=== PATIENT | female | born 1940 | race Caucasian/White ===

== ENCOUNTER 2023-08-26 15:46 | Outpatient (OUT) | payer MEDICARE, SELFPAY ==
--- NOTE | 2023-08-26 16:12 | XR_ITS ---
The [address] [address] Patient Name: BANG BOYCE MRN: [id number] date: 1940 Sex: F Assigned Patient Location: [facility] Current Patient Location: [facility] Accession/Order Number: [id number] Exam Date: 08/26/2023 16:05 Report Date: 08/26/2023 16:29 At the request of: ABEL MISHRA Procedure: XR cervical spine 5V EXAM: XR cervical spine 5V HISTORY: Cervical Spine Pain M54.2 COMPARISON: None. TECHNIQUE: 5 view(s) of the cervical spine. FINDINGS: The bones are well mineralized. The spine is in good alignment. Advanced multilevel degenerative changes are present. There is bony fusion across the vertebral bodies of C3-C4 and C5-C6. The oblique views are limited, however, moderate to severe neural foraminal stenosis is present at the right C4-C5 and C6-C7 levels due to uncovertebral hypertrophy. No acute fracture. XR/XR cervical spine 5V IMPRESSION: 1. No acute abnormality of the cervical spine. 2. Advanced multilevel degenerative changes are present. Electronically authenticated by: AJIT VASQUEZ Date: 08/26/2023 16:29
== END 2023-08-26 15:47 | disposition home or self-care (01) ==
LOC: RAD 15:52
PROVIDERS: PCP Family Medicine; Visit Provider Family Medicine
DX: M54.2 Cervicalgia (principal); G89.4 Chronic pain syndrome
CPT/HCPCS: 72050

== ENCOUNTER 2023-09-29 09:32 | Outpatient (OUT) | payer MEDICARE, SELFPAY ==
--- NOTE | 2023-09-29 09:35 | MR_ITS ---
The [address] [address] Patient Name: BANG BOYCE MRN: [id number] date: 1940 Sex: F Assigned Patient Location: MRI Current Patient Location: MRI Accession/Order Number: [id number] Exam Date: 09/29/2023 09:52 Report Date: 09/29/2023 11:06 At the request of: ABEL MISHRA Procedure: MR cervical spine wo con MR cervical spine wo con, 09/29/2023 9:52 AM EST INDICATION: Cervical Spine PAin M48.02, Stenosis Of Cervical Spine M48.0 COMPARISON: Prior x-ray dated 08/26/2023 TECHNIQUE: Multiplanar, multisequential MRI images of cervical spine were obtained with without contrast. FINDINGS: There is loss of normal physiologic cervical lordosis. The vertebral heights are relatively preserved. Partial fusion of C3-C4 and C4-C5 is noted. The cervicomedullary junction is unremarkable. No definite signal abnormality within the spinal cord is noted. 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 Moderate bilateral neuroforaminal narrowing and no canal stenosis at the level of C2-C3 is noted. At the level of C3-C4, there is mild left no neuroforaminal narrowing and no canal stenosis. At the level of C4-C5, there is severe bilateral neuroforaminal narrowing and moderate canal stenosis. At the level of C5-C6, there is moderate bilateral neuroforaminal narrowing and moderate canal stenosis. At the level of C6-C7, there is severe bilateral neuroforaminal narrowing and moderate canal stenosis. Level of C7-T1 is unremarkable. No definite muscular or ligamentous injury is noted. 1.9 cm thyroid nodule in the left lobe is noted. MR/MR cervical spine wo con IMPRESSION: Moderate degenerative changes of the cervical spine in particular at C4-C5 and C6-C7. Thyroid nodules up to 1.9 cm. Ultrasound is recommended for further evaluation. Electronically authenticated by: KITTY GUERRERO Date: 09/29/2023 11:06
== END 2023-09-29 09:33 | disposition home or self-care (01) ==
LOC: MRI 09:32
PROVIDERS: PCP Family Medicine; Visit Provider Family Medicine
DX: M54.2 Cervicalgia (principal); M48.02 Spinal stenosis, cervical region; M43.22 Fusion of spine, cervical region; R29.898 Other symptoms and signs involving the musculoskeletal system; M50.30 Other cervical disc degeneration, unspecified cervical region; E04.1 Nontoxic single thyroid nodule
CPT/HCPCS: 72141

== ENCOUNTER 2024-10-02 15:20 | Outpatient (OUT) | payer MEDICARE, SELFPAY ==
--- NOTE | 2024-10-02 15:28 | US_ITS ---
The [address] [address] Patient Name: BANG BOYCE MRN: [id number] date: 1940 Sex: F Assigned Patient Location: US Current Patient Location: [place] Accession/Order Number: [id number] Exam Date: 10/02/2024 15:30 Report Date: 10/02/2024 16:37 At the request of: ABEL MISHRA Procedure: US venous doppler LE RT EXAMINATION: US venous doppler LE RT HISTORY: right leg pain M79.604 COMPARISON: No relevant comparison available. FINDINGS: REGION: Right lower extremity THROMBI: None. COMPRESSIBILITY: Normal compressibility. FLOW: Normal waveform and antegrade flow between 5 and 20 cm/s. OTHER: Anechoic fluid collection posterior medial to the knee, 6.2 x 3.5 x 2.1 cm. Distal lower extremity subcutaneous edema. US/US venous doppler LE RT IMPRESSION: 1. No deep vein thrombus within the right lower extremity. 2. Subcutaneous edema. 3. Jimenez's cyst. Electronically authenticated by: JOVITA BARCENAS Date: 10/02/2024 16:37
--- OUTSIDE RECORDS SUMMARY | 2024-10-02 15:43 | XMS_ITS | CCD ---
Author Organization [facility] Care Team Providers Care Harpooner Name Role Phone Star Mishra Unavailable DANICA ., DR ROMAN Attending Unavailable DANICA ., DR ROMAN Consulting Unavailable DANICA ., DR ROMAN Primary Care Unavailable DANICA ., DR ROMAN Admitting Unavailable Star Mishra MD Unavailable [phone] Star Mishra MD Primary Care Provider LISY OMALLEY Attending Unavailable LISY OMALLEY Attending Unavailable STAR MISHRA Attending Unavailable DEVEN GONZALEZ Attending Unavailable APLINGBYRON Attending Unavailable APLING BYRON B Referring Unavailable STAR MISHRA Attending Unavailable APLINGBYRON Referring Unavailable SHOLA LARSEN Attending Unavailable STAR MISHRA Attending Unavailable DEVEN GONZALEZ Attending Unavailable STAR MISHRA Referring Unavailable SHAYLA BRAUN Attending Unavailable STAR MISHRA Attending Unavailable SHAYLA BRAUN Attending Unavailable SHAYLA BRAUN Attending Unavailable DEVEN GONZALEZ Attending Unavailable STAR MISHRA Attending Unavailable SHAYLA BRAUN Attending Unavailable SHAYLA BRAUN Attending Unavailable SHAYLA BRAUN Attending Unavailable SHAYLA BRAUN Attending Unavailable SHAYLA BRAUN Attending Unavailable STAR MISHRA Attending Unavailable STAR MISHRA Attending Unavailable DEVEN GONZALEZ Attending Unavailable STAR MISHRA Attending Unavailable Allergies Allergy Classification Reported Allergen(s) Allergy Type Date of Onset Reaction(s) Facility (2 sources) Baclofen Drug Allergy 12-23-2023 Other [facility] Medications Current Medications Medication Drug Class(es) Dates Sig (Normalized) Sig (Original) acetaminophen 325 mg oral tablet (18 sources) Start: 11-28-2019 take 2 tablets by mouth every four hours as needed acetaminophen 325 MG tablet Take 2 tablets by mouth every 4 hours as needed for Mild Pain. 50 tablet 1 11/28/2019 Active Start: 11-28-2019 End: 12-01-2019 take 1 tablet by mouth every six hours acetaminophen (TYLENOL) tablet 1,000 mg Start: 10-04-2018 End: 12-01-2019 take 1 tablet by mouth every four hours as needed acetaminophen 650 MG Tab CR Take 1 tablet by mouth every 4 hours as needed for Pain. 50 tablet 0 10/04/2018 12/01/2019 Discontinued (Stop Taking at Discharge) Acetaminophen (T YLENOL ARTHRITIS PAIN PO) Take 650 mg by mouth as needed. Active acetaminophen 500 mg / diphenhydrAMINE hydrochloride 25 mg oral tablet (7 sources) Histamine-1 Receptor Antagonist take 25-500 mg by mouth once as needed diphenhydrAMINE-acetaminophen (Tylenol PM) 25-500 MG per tablet Take 1 tablet by mouth as needed at bedtime for sleep. 0 Active amoxicillin 500 mg oral capsule (7 sources) Penicillin-class Antibacterial Star t: 10-09 End: 10-09 amoxicillin 500 MG Cap capsu le Take 4 capsules 1 hour before procedure 8 capsule 1 10/27/2018 10/27/2019 Active aspirin 81 mg delayed release oral tablet (20 sources) Platelet Aggregation Inhibitor, Nonsteroidal Anti-inflammatory Drug Star t: 11-09 End: 11-09 aspirin EC [address] Take 1 table twice a day for 30days. This medication is for blood clot prevention. 60 tablet 0 11/28/2019 Active Start: 10-04-2018 End: 11-03-2018 take 1 tablet by mouth twice daily at mealtime aspirin EC [address] Take 1 tablet by mouth 2 times daily with meals. This medication is being prescribed to prevent blood clots. 60 tablet 0 10/04/2018 Active take 1 tablet by mouth once sangeetha y aspirin EC [address] Take 81 mg by mouth daily. 0 Active baclofen 20 mg oral tablet (5 sources) gamma-Aminobutyric Acid-ergic Agonist Start: 12-17-2023 End: 01-16-2024 take 1 tablet by mouth at bedtime baclofen (Lioresal) 20 MG tablet Indications: Neuroforaminal stenosis of cervical spine , Cervical dystonia Take 1 tablet (20 mg) by mouth at bedtime 30 tablet 11 12/17/2023 12/23/2023 Discontinued (Therapy completed) Calcium Citrate (11 sources) take 600 mg by mouth every twelve hours CALCIUM CITRATE PO Take 600 mg by mouth every 12 hours. 0 Active celecoxib 200 mg oral capsule (14 sources) Nonsteroidal Anti-inflammatory Drug Start: 10-04-2018 End: 01-09-2020 take 1 capsule by mouth twice daily celecoxib 200 MG Cap capsule Take 1 capsule by mouth 2 times daily. 84 capsule 0 11/28/2019 Active cholecalciferol 0.125 mg oral tablet (20 sources) Vitamin D take 1 tablet by mouth in the morning cholecalciferol (Vitamin D-3) 125 MCG (5000 UT) tablet Take 5,000 Units by mouth in the morning. 0 Active take 5 tablets by mouth once morteza ly Vitamin D3 1000 units Tab tablet Take 5,000 Units by mouth daily. 0 Active take 2 tablets by mouth once morteza ly Vitamin D3 1000 units Tab tablet Take 2,000 Units by mouth daily. 0 Active coenzyme q10 100 mg oral capsule (16 sources) take 10 capsules by mouth once, then take 1 capsule by mouth Coenzyme Q10 (COQ10) 100 MG Cap Take 100 mg by mouth. 0 Active take 1 capsule by mo uth once, then take 1 capsule by mouth Coenzyme Q10 (COQ10) 100 MG Cap Take 100 mg by mouth. Active dexamethasone 2 mg oral tablet (8 sources) Corticosteroid Start: 12-03-2023 End: 12-23-2023 take 1 tablet by mouth in the morning dexAMETHasone (Decadron) 2 MG tablet Indications: Cervical dystonia Take 1 tablet (2 mg) by mouth in the morning and 1 tablet (2 mg) in the evening. Take with meals. Do all this for 7 days. 14 tablet 1 12/03/2023 12/23/2023 Discontinued (Therapy completed) Start: 11-29-2019 End: 11-29-2019 take 10 mg intravenous route every twenty-four hours dexamethasone (DECADRON) injection 10 mg docusate sodium 100 mg oral capsule (16 sources) Start: 10-04-2018 End: 12-01-2019 take 1 capsule by mouth twice daily docusate 100 MG Cap capsule Take 1 capsule by mouth 2 times daily. 60 capsule 0 11/28/2019 Active gabapentin 300 mg oral capsule (19 sources) Anti-epileptic Agent Start: 08-03-2023 End: 01-30-2024 take 1 capsule by mouth in the morning, then take 1 capsule by mouth in the evening, then take 1 capsule by mouth at bedtime gabapentin (Neurontin) 300 MG capsule Indications: Chronic pain syndrome Take 1 capsule (300 mg) by mouth in the morning and 1 capsule (300 mg) in the evening and 1 capsule (300 mg) before bedtime. 270 capsule 1 08/03/2023 01/30/2024 Active Start: 07-08-2019 End: 12-01-2019 take 1 capsule by mouth three times daily gabapentin 100 MG Cap capsule Take 100 mg by mouth 3 times daily. 0 07/08/2019 Active magnesium oxide 400 mg oral tablet (16 sources) take 1 tablet by teo th once daily magnesium oxide 400 (241.3 Mg) MG Tab tablet Take 250 mg by mouth daily. 0 Active Multiple Vitamins-Minerals (CENTRUM SILVER PO) (16 sources) Multiple Vitamin s-Minerals (CENTRUM SILVER PO) Take by mouth. 0 Active Multiple Vitamin s-Minerals (CENTRUM SILVER PO) Take by mouth. Active multivitamin (Theragran) tablet (7 sources) take 1 tablet by mouth in the morning multivitamin (Theragran) tablet Take 1 tablet by mouth in the morning. 0 Active Naproxen (1 source) Nonsteroidal Anti-inflammatory Drug Naproxen Sodium (ALEVE PO) Take by mouth. Active omeprazole 20 mg delayed release oral capsule (7 sources) Proton Pump Inhibitor Start: 11-28-19 20 take 1 capsule by mouth once daily omeprazole [address] capsule Take 1 capsule by mouth daily. 30 capsule 0 11/28/2019 Active oxyCODONE hydrochloride 5 mg oral tablet (3 sources) Opioid Agonist Start: 10-04-20 18 oxyCODONE 5 MG Tab tablet Indications: Status post right knee replacement 5-10 mg every 4-6 hours as needed for moderate-severe pain 60 tablet 0 10/04/2018 Active rosuvastatin calcium 5 mg oral tablet (7 sources) HMG-CoA Reductase Inhibitor Start: 08-03-20 End: 01-30-20 24 take 1 tablet by mouth at bedtime rosuvastatin (Crestor) 5 MG tablet Indications: Mixed dyslipidemia (CMS/HCC) Take 1 tablet (5 mg) by mouth at bedtime. 90 tablet 1 08/03/2023 01/30/2024 Active spironolactone 25 mg oral tablet (5 sources) Aldosterone Antagonist Start: 01-04-20 take 1 tablet by mouth twice daily spironolactone 25 MG tablet Take 1 tablet by mouth 2 times daily. 0 01/04/2020 Active traMADol hydrochloride 50 mg oral tablet (5 sources) Opioid Agonist Start: 11-28-19 20 End: 12-05-19 20 take 1-2 tablets by mouth every six hours as needed for pain traMADol 50 MG Tab tablet Indications: Acute postoperative pain of left hip 1-2 tabs po q 6 hr PRN pain 40 tablet 0 11/28/2019 Active Turmeric extract (8 sources) take 1 capsule by mouth once daily TURMERIC PO Take 1 capsule by mouth daily. 0 Active ubidecarenone 100 mg / vitamin e 5 unt oral capsule (7 sources) coenzyme Q-10 10 0 MG capsule Completed/Discontinued Medications Medication Drug Class(es) Dates Sig (Normalized) Sig (Original) bisacodyl 10 mg rectal suppository (1 source) Stimulant Laxative Start: 0 End: 0 bisacodyl (DULCOLAX) suppository 10 mg ceFAZolin 2000 mg injection (1 source) Cephalosporin Antibacterial Start: 0 End: 0 take 2 g intravenous route every eight hours ceFAZolin (ANCEF) 2 g in dextrose 100 mL premix IVPB docusate sodium 50 mg / sennosides, fci 8.6 mg oral tablet (1 source) Start: 0 End: 0 senna-docusate (SENOKOT-S) 8.6-50 MG per tablet 2 tablet 1 ml HYDROmorphone hydrochloride 1 mg/ml cartridge (1 source) Opioid Agonist Start: 0 End: 0 take 0.5 mg intravenous route every four hours as needed HYDROmorphone (DILAUDID) injection 0.5 mg 1 ml ketorolac tromethamine 30 mg/ml cartridge (1 source) Nonsteroidal Anti-inflammatory Drug, Cyclooxygenase Inhibitor Start: 0 End: 0 take 7.5 mg intravenous route every six hours ketorolac (TORADOL) injection 7.5 mg losartan potassium 50 mg oral tablet (9 sources) Angiotensin 2 Receptor Yen Start: 0 End: 0 take 50 mg by mouth once daily 50 mg, Oral, DAILY, First dose on Wed11/28/19 at 1700, Until Discontinued meloxicam 15 mg oral tablet (7 sources) Nonsteroidal Anti-inflammatory Drug Start: 9 End: 0 take 1 tablet by mouth once daily at mealtime meloxicam 15 MG Tab tablet Take 1 tablet by mouth daily. Take with food. 30 tablet 0 11/17/2018 12/01/2019 Discontinued (Stop Taking at Discharge) nabumetone 750 mg oral tablet (3 sources) Nonsteroidal Anti-inflammatory Drug Start: 3 End: 4 take 1 tablet by mouth in the morning nabumetone (Relafen) 750 MG tablet Indications: Chronic pain syndrome Take 1 tablet (750 mg) by mouth in the morning and 1 tablet (750 mg) before bedtime. 180 tablet 0 10/25/2023 12/17/2023 Discontinued (Therapy completed) 2 ml ondansetron 2 mg/ml injection (1 source) Serotonin-3 Receptor Antagonist Start: 0 End: 0 take 4 mg intravenous route every four hours as needed ondansetron 4mg/2ml (ZOFRAN) injection 4 mg pantoprazole 40 mg delayed release oral tablet (1 source) Proton Pump Inhibitor Start: 0 End: 0 take 40 mg by mouth once daily 40 mg, Oral, DAILY, First dose on Wed11/28/19 at 1730, Until Discontinued Swallow whole; do not crush or chew. Indications: Inpt Stress Ulcer Prophylaxis microencapsulated potassium chloride 20 meq extended release oral tablet (1 source) Start: 0 End: 0 40 mEq, Oral, DAILY NEEDED, Starting Wed11/28/19 at 1650, Until Wed12/01/19 at 1724, k less 3.5 ropivacaine (NAROPIN) 1 % 400 mg, EPINEPHrine PF (ADRENALIN) 1 MG/ML 1 mg, ketorolac (TORADOL) 30 MG/ML 30 mg, cloNIDine 100 MCG/ML 177 mcg, sodium chloride 0.9% 45 mL 88.77 mL (total volume) (1 source) Start: 0 End: 0 ropivacaine (NAROPIN) 1 % 400 mg, EPINEPHrine PF (ADRENALIN) 1 MG/ML 1 mg, ketorolac (TORADOL) 30 MG/ML 30 mg, cloNIDine 100 MCG/ML 177 mcg, sodium chloride 0.9% 45 mL 88.77 mL (total volume) 1000 ml sodium chloride 9 mg/ml injection (2 sources) Start: 0 End: 0 sodium chloride 0.9% IV solution sodium phosphate, dibasic 35.5 mg/ml / sodium phosphate, monobasic 96.4 mg/ml enema (1 source) Start: 0 End: 0 sodium phosphate w/sodium biphosphate (FLEETS) enema 1 enema tiZANidine 4 mg oral tablet (3 sources) Central alpha-2 Adrenergic Agonist Start: 4 End: 4 take 1 tablet by mouth every six hours for muscle spasms tiZANidine (Zanaflex) 4 MG tablet Indications: Cervical dystonia Take 1 tablet (4 mg) by mouth every 6 (six) hours if needed for muscle spasms for up to 10 days 30 tablet 3 12/03/2023 12/17/2023 Discontinued (Therapy completed) tranexamic acid 650 mg oral tablet (1 source) Antifibrinolytic Agent Start: 0 End: 0 tranexamic acid (LYSTEDA) tablet 1,950 mg zolpidem tartrate 5 mg oral tablet (1 source) gamma-Aminobutyric Acid-ergic Agonist Start: 0 End: 0 zolpidem (AMBIEN) tablet 5 mg Problems Active Problems Problem Classification Problem Date Documented Date Episodic/Chronic Disorders of lipid metabolism (11 sources) Mixed hyperlipidemia; Translations: [Mixed hyperlipidemia] Onset: 01-20-2023 Chronic E Codes: Adverse effects of medical drugs (2 sources) Adverse reaction to drug; Translations: [Adverse effect of unspecified drugs, medicaments and biological substances, initial encounter] 12-23-2023 Episodic Esophageal disorders (20 sources) Gastroesophageal reflux disease; Translations: [Gastro-esophageal reflux disease without esophagitis] Onset: 10-04-2018 10-04-2018 Chronic Essential hypertension (16 sources) Benign hypertension; Translations: [Essential hypertension] Onset: 11-28-2019 11-30-2019 Chronic Malaise and fatigue (7 sources) Chronic fatigue syndrome; Translations: [Chronic fatigue syndrome] Onset: 07-16-2023 07-16-2023 Chronic Nutritional deficiencies (7 sources) Vitamin D deficiency; Translations: [Vitamin D deficiency, unspecified] Onset: 07-16-2023 07-16-2023 Chronic Osteoarthritis (7 sources) Osteoarthritis of left hip joint; Translations: [Unilateral primary osteoarthritis, left hip] Onset: 11-28-2019 08-03-2023 Chronic Osteoarthritis (9 sources) Osteoarthritis of left hip joint; Translations: [Primary osteoarthritis of left hip] Onset: 11-28-2019 11-28-2019 Other bone disease and musculoskeletal deformities (7 sources) Idiopathic scoliosis of lumbar spine; Translations: [Other idiopathic scoliosis, lumbar region] Onset: 07-16-2023 07-16-2023 Chronic Other connective tissue disease (2 sources) History of total knee arthroplasty; Translations: [History of total knee arthroplasty, right] Chronic Other connective tissue disease (3 sources) History of total hip arthroplasty; Translations: [Hx of total hip arthroplasty, left] Chronic Other connective tissue disease (7 sources) Hip joint prosthesis present; Translations: [Presence of left artificial hip joint] Onset: 07-16-2023 07-16-2023 Chronic Other connective tissue disease (14 sources) Artificial knee joint present; Translations: [Presence of left artificial knee joint] Onset: 07-16-2023 07-16-2023 Chronic Other hereditary and degenerative nervous system conditions (10 sources) Isolated cervical dystonia; Translations: [Spasmodic torticollis] Onset: 12-03-2023 12-03-2023 Chronic Other nervous system disorders (9 sources) Chronic pain syndrome; Translations: [Chronic pain syndrome] Onset: 07-16-2023 07-16-2023 Chronic Other nervous system disorders (4 sources) Disorder of nerve root and/or plexus; Translations: [Nerve root and plexus disorder, unspecified] Onset: 12-21-2023 12-21-2023 Chronic Other non-traumatic joint disorders (3 sources) Hip pain; Translations: [Left hip pain] Episodic Other nutritional; endocrine; and metabolic disorders (9 sources) Obesity caused by energy imbalance; Translations: [Other obesity due to excess calories] Onset: 07-16-2023 07-16-2023 Chronic Other nutritional; endocrine; and metabolic disorders (11 sources) Obese class I; Translations: [Obesity (BMI 30.0-34.9)] Onset: 10-04-2018 10-05-2018 Other screening for suspected conditions (not mental disorders or infectious disease) (2 sources) Blood chemistry abnormal; Translations: [Encounter for screening for diabetes mellitus] Onset: 01-27-2023 Episodic Peripheral and visceral atherosclerosis (7 sources) Peripheral vascular disease, unspecified; Translations: [Peripheral vascular disease, unspecified] Onset: 07-16-2023 07-16-2023 Chronic Spondylosis; intervertebral disc disorders; other back problems (20 sources) Degeneration of lumbosacral intervertebral disc; Translations: [Osteoarthritis of lumbar spinal facet joint] Onset: 07-16-2023 07-16-2023 Chronic Spondylosis; intervertebral disc disorders; other back problems (20 sources) Lumbar facet joint pain; Translations: [Disorder of cervical spine] Onset: 07-16-2023 Resolved: 07-26-2023 10-19-2023 Episodic Unclassified (2 sources) Patient encounter status; Translations: [Preop testing] Unclassified (1 source) History of revision of right total knee arthroplasty; Translations: [History of revision of total replacement of right knee joint] Past or Other Problems Problem Classification Problem Date Documented Da te Episodic/Chronic Acquired foot deformities (7 sources) Talipes planus; Translations: [Flat foot [pes planus] (acquired), unspecified foot] Onset: 07-16-2023 07-16-2023 Episodic Mood disorders (7 sources) Mood disorders Onset: 09-13-2023 09-13-2023 Other acquired deformities (7 sources) Acquired unequal leg length; Translations: [Unequal limb length (acquired), unspecified site] Onset: 07-16-2023 07-16-2023 Episodic Other bone disease and musculoskeletal deformities (7 sources) Osteopenia; Translations: [Other specified disorders of bone density and structure, unspecified site] Onset: 07-16-2023 07-16-2023 Episodic Other diseases of veins and lymphatics (7 sources) Venous insufficiency of leg; Translations: [Venous insufficiency (chronic) (peripheral)] Onset: 07-16-2023 07-16-2023 Episodic Other non-traumatic joint disorders (16 sources) Knee pain; Translations: [Acute pain of right knee] Onset: 10-04-2018 10-04-2018 Episodic Other nutritional; endocrine; and metabolic disorders (11 sources) Obesity, unspecified; Translations: [Obese class I] Onset: 10-04-2018 Resolved: 12-22-2023 10-05-2018 Chronic Other skin disorders (7 sources) Actinic keratosis; Translations: [Actinic keratosis] Onset: 07-16-2023 07-16-2023 Episodic Residual codes; unclassified (15 sources) History of operative procedure on knee; Translations: [Knee joint replacement status] Onset: 10-04-2018 10-04-2018 Episodic Unclassified (1 source) Osteoarthritis of right knee, unspecified osteoarthritis type Unclassified (1 source) Hemarthrosis of right knee Varicose veins of lower extremity (7 sources) Varicose veins of lower limb co-occurrent with edema; Translations: [Varicose veins of bilateral lower extremities with other complications] Onset: 07-16-2023 07-16-2023 Episodic Results Test Name Value Interpretation Reference Range Facility MR SHOULDER LEFT WO IV CONTR Diana 01-04-2024 MR SHOULDER LEFT WO IV CONTRAST EXAMINATION: MR SHOULDER LEFT WO IV CONTRAST HISTORY: LT shoulder internal derangement history of prior rotator cuff surgery. TECHNIQUE: Routine non-contrast MRI of the shoulder, left side COMPARISON: Radiograph 01/03/2024. RESULT: Some limitations from artifact secondary to prior surgery. Rotator Cuff Tendons: Postsurgical changes from prior rotator cuff repair. Increased signal and attenuated appearance of the mid to distal fibers of supraspinatus and infraspinatus which may be postsurgical or secondary to tendinosis, with some areas of possible partial thickness articular sided tearing, without distinct full-thickness tear. Mild to moderate tendinosis of subscapularis, without distinct tear. Teres minor appears intact. Long Head Biceps Tendon: Complete rupture/tear proximally near origin versus changes from prior tenotomy, with distal retraction of the torn fibers to near the region of the humeral head neck junction. Increased fluid in the tendon sheath may relate to tenosynovitis or joint continuity. Muscle: Muscle bulk and signal intensity are within normal limits. Labrum: Diffuse fraying/tearing. Bones and Marrow: No evidence of fracture or bone marrow replacing process. Glenohumeral Joint: Small to moderate areas of full-thickness chondral loss especially of the superior humeral head and inferior glenoid. Small joint effusion. Acromioclavicular Joint: Degenerative changes and probable prior postsurgical changes. Other: Mild subacromial-subdeltoid bursal thickening/fluid. IMPRESSION: Changes from prior rotator cuff repair without evidence for recurrent full-thickness tear, with possible areas of partial-thickness tearing of distal supraspinatus and infraspinatus. Complete rupture/tear of the proximal long head biceps tendon with distal retraction, versus changes from prior tenotomy. ELECTRONICALLY SIGNED BY: Bennie Serna MD Normal Not Available US THYROIDon 10-08-2023 US THYROID FINDINGS: Right lobe thyroid measures 5.7 x 1.8 x 2.5 cm. Left lobe thyroid measures 5.5 x 1.8 x 2.8 cm. Isthmus measures 8 mm. In the left lobe, upper pole, a 1.9 x 1.4 x 1.8 cm nearly completely solid, isoechoic, wider than tall, smoothly marginated, noncalcified nodule is identified (TR 3). In the right isthmus, a 1.2 x 0.9 x 0.7 cm mixed cystic and solid, isoechoic, wider than tall, smoothly marginated, noncalcified nodule is identified (TR 2). IMPRESSION: Impression: 1.9 x 1.4 x 1.8 cm left lobe upper pole mildly suspicious narrowing nodule follow-up sonography in 1 year recommended. 1.2 x 0.9 x 0.7 cm right isthmus nonsuspicious appearing nodule. No further work-up required. ELECTRONICALLY SIGNED BY: Gerald Garces MD Normal Not Available LIPID PROFILEon 01-20-2023 CHOL-HDL RATIO NORM SEE BELOW Normal [facility] Comment on above: Result Comment: 3.3 - 4.4 LOW RISK 4.4 - 7.1 AVERAGE RISK 7.1 - 11.0 MODERATE RISK >11.0 HIGH RISK Performed By: #### C MP, LIPID #### [facility] [address] [place] [address] Dr. Mary Lorenzana Cholesterol [Mass/Vol] 134 mg/dL Normal <=200 [facility] Comment on above: Performed By: #### C MP, LIPID #### [facility] [address] [address] [address] Mary Lorenzana Cholesterol in HDL [Mass/Vol] 46 mg/dL Normal 40-60 [facility] Comment on above: Performed By: #### C MP, LIPID #### [facility] [address] [address] [address] Mary Lorenzana Cholesterol in LDL [Mass/Vol] 63.0 mg/dL Normal [facility] Comment on above: Performed By: #### C MP, LIPID #### [facility] [address] [address] [address] Mary Lorenzana Cholesterol.total/C holesterol in HDL [Mass ratio] 2.9 {ratio} Normal [facility] Comment on above: Performed By: #### C MP, LIPID #### [facility] [address] [address] [address] Mary Lorenzana HDL NORMAL > or = 60 mg/dl - LO W CARDIOVASCULAR RISK <40 mg/dl - HIGH CARDIOVASCULAR RISK Normal [facility] Comment on above: Performed By: #### C MP, LIPID #### [facility] [address] [address] [address] Mary Lorenzana LDL CALC NORMAL SEE BELOW Normal [facility] Comment on above: Result Comment: <100 mg/dl OPTIMAL 100 - 129 mg/dl NEAR OR ABOVE OPTIMAL 130 - 159 mg/dl BORDERLINE HIGH 160 - 189 mg/dl HIGH >190 mg/dl VERY HIGH Performed By: #### C MP, LIPID #### [facility] [address] [place] [address] Dr. Mary Lorenzana Triglyceride [Mass/Vol] 125 mg/dL Normal <=150 [facility] Comment on above: Performed By: #### C MP, LIPID #### [facility] [address] [place] [address] Dr. Mary Lorenzana VLDL CALC 25.0 mg/dL Normal [facility] Comment on above: Performed By: #### C MP, LIPID #### [facility] [address] [address] [address] Mary Lorenzana PROF 14(COMP METB)on 023 Albumin [Mass/Vol] 3.2 g/dL Critically low 3.4-5.0 [facility] Comment on above: Performed By: #### C MP, LIPID #### [facility] [address] [place] [address] Dr. Mary Lorenzana Albumin/Globulin [Mass ratio] 1.0 {ratio} Normal [facility] Comment on above: Performed By: #### C MP, LIPID #### [facility] [address] [place] [address] Dr. Mary Lorenzana ALP [Catalytic activity/Vol] 74 U/L Normal 46-116 [facility] Comment on above: Performed By: #### C MP, LIPID #### [facility] [facility] [address] [place] [address] Dr. Mary Lorenzana ALT [Catalytic activity/Vol] 22 U/L Normal 14-59 [facility] Comment on above: Performed By: #### C MP, LIPID #### [facility] [address] [place] [address] Dr. Mary Lorenzana Anion gap [Moles/Vol] 11.8 mmol/L Normal [facility] Comment on above: Performed By: #### C MP, LIPID #### [facility] [address] [place] [address] Dr. Mary Lorenzana AST [Catalytic activity/Vol] 23 U/L Normal 15-37 [facility] Comment on above: Performed By: #### C MP, LIPID #### [facility] [address] [place] [address] Dr. Mary Lorenzana Bilirubin [Mass/Vol] 0.3 mg/dL Normal 0.2-1.0 [facility] Comment on above: Performed By: #### C MP, LIPID #### [facility] [address] [place] [address] Dr. Mary Lorenzana Calcium [Mass/Vol] 9.2 mg/dL Normal 8.5-10.1 [facility] Comment on above: Performed By: #### C MP, LIPID #### [facility] [address] [place] [address] Dr. Mary Lorenzana Chloride [Moles/Vol] 109 mmol/L Critically high 98-107 [facility] Comment on above: Performed By: #### C MP, LIPID #### [facility] [address] [place] [address] Dr. Mary Lorenzana CO2 [Moles/Vol] 26.6 mmol/L Normal 21.0-32.0 [facility] Comment on above: Performed By: #### C MP, LIPID #### [facility] [address] [place] [address] Dr. Mary Lorenzana Creatinine [Mass/Vol] 0.78 mg/dL Normal 0.55-1.02 [facility] Comment on above: Performed By: #### C MP, LIPID #### [facility] [address] [place] [address] Dr. Mary Lorenzana EGFR-AF SWAZI >60 Normal >=60 [facility] Comment on above: Performed By: #### C MP, LIPID #### [facility] [address] [place] [address] Dr. Mary Lorenzana EGFR-NON AF SWAZI >60 Normal >=60 [facility] Comment on above: Performed By: #### C MP, LIPID #### [facility] [address] [place] [address] Dr. Mary Lorenzana Globulin (S) [Mass/Vol] 3.3 g/dL Normal [facility] Comment on above: Performed By: #### C MP, LIPID #### [facility] [address] [place] [address] Dr. Mary Lorenzana Glucose [Mass/Vol] 89 mg/dL Normal 74-106 [facility] Comment on above: Performed By: #### C MP, LIPID #### [facility] [address] [place] [address] Dr. Mary Lorenzana Potassium [Moles/Vol] 4.4 mmol/L Normal 3.5-5.1 [facility] Comment on above: Performed By: #### C MP, LIPID #### [facility] [address] [place] [address] Dr. Mary Lorenzana Protein [Mass/Vol] 6.5 g/dL Normal 6.4-8.2 [facility] Comment on above: Performed By: #### C MP, LIPID #### [facility] [address] [place], [place] [address] Dr. Mary Lorenzana Sodium [Moles/Vol] 143 mmol/L Normal 136-145 [facility] Comment on above: Performed By: #### C MP, LIPID #### [facility] [address] [place], [place] [address] Dr. Mary Lorenzana Urea nitrogen [Mass/Vol] 17.0 mg/dL Normal 7.0-18.0 [facility] Comment on above: Performed By: #### C MP, LIPID #### [facility] [address] [place] [address] [address] Mary Lorenzana Urea nitrogen/Creatinine [Mass ratio] 21.8 mg/mg Normal [facility] Comment on above: Performed By: #### C MP, LIPID #### [facility] [address] [place], [place] [address] Dr. Mary Lorenzana Complete Blood Counton 01-27 Erythrocyte distribution width (RBC) [Ratio] 13.2 % Normal 11.0-15.0 [facility] [employer] Comment on above: Performed By: #### L IPD, CMP, CBC #### [facility] [address] [place], [place] [id number] Hematocrit (Bld) [Volume fraction] 47.2 % High 35.0-47.0 [facility] [employer] Comment on above: Performed By: #### L IPD, CMP, CBC #### [facility] [address], [place] [id number] Hemoglobin (Bld) [Mass/Vol] 14.9 g/dL Normal 11.6-15.5 [facility] [employer] Comment on above: Performed By: #### L IPD, CMP, CBC #### [facility] [address] [place], [place] [id number] MCH (RBC) [Entitic mass] 29.0 pg Normal 27.0-33.0 [facility] [employer] Comment on above: Performed By: #### L IPD, CMP, CBC #### [facility] [address] [place], [place] [id number] MCHC (RBC) [Mass/Vol] 31.6 g/dL Low 32.0-36.0 [facility] [employer] Comment on above: Performed By: #### L IPD, CMP, CBC #### [facility] [address] [place], [place] [id number] MCV (RBC) [Entitic vol] 92 fL Normal 80-100 [facility] Specialist Comment on above: Performed By: #### L IPD, CMP, CBC #### [facility] [address] [place], [place] [id number] Platelet mean volume (Bld) [Entitic vol] 10.00 fL Normal 7.50-12.50 [facility] [employer] Comment on above: Performed By: #### L IPD, CMP, CBC #### [facility] [address] [place], [place] [id number] Platelets (Bld) [#/Vol] 344 10*3/uL Normal 140-400 [facility] [employer] Comment on above: Performed By: #### L IPD, CMP, CBC #### [facility] [address] [place], [place] [id number] RBC (Bld) [#/Vol] 5.14 10*6/uL Normal 3.90-5.20 [facility] [employer] Comment on above: Performed By: #### L IPD, CMP, CBC #### [facility] [address] [place], [place] [id number] RDW-SD 45.2 fL Normal 37.0-50.0 [facility] [employer] Comment on above: Performed By: #### L IPD, CMP, CBC #### [facility] [address] [place], [place] [id number] WBC (Bld) [#/Vol] 5.8 10*3/uL Normal 3.8-11.0 [facility] [employer] Comment on above: Performed By: #### L IPD, CMP, CBC #### [facility] [address] [place], [place] [id number] Comprehensive Metabolic Pane ricki 01-27-2022 Albumin [Mass/Vol] 4.4 g/dL Normal 3.6-5.1 [facility] [place] [employer] Comment on above: Performed By: #### L IPD, CMP, CBC #### [facility] [address] [place], [place] [id number] Albumin/Globulin [Mass ratio] 1.9 {ratio} Normal 1.0-2.5 [facility] [employer] Comment on above: Performed By: #### L IPD, CMP, CBC #### [facility] [address] [place], [place] [id number] ALP [Catalytic activity/Vol] 74 U/L Normal 35-119 [facility] [employer] Comment on above: Performed By: #### L IPD, CMP, CBC #### [facility] [address] [place], [place] [id number] ALT [Catalytic activity/Vol] 17 U/L Normal 6-33 [facility] [employer] Comment on above: Result Comment: 10/08 Female reference range changed. Performed By: #### L IPD, CMP, CBC #### [facility] [address] [place], [place] [id number] Anion gap [Moles/Vol] 16 mmol/L Normal 12-20 [facility] [employer] Comment on above: Result Comment: Effe ctive 11/13/2019 reference range changed. Performed By: #### L IPD, CMP, CBC #### [facility] [address] [place], [place] [id number] AST [Catalytic activity/Vol] 18 U/L Normal 9-34 [facility] [employer] Comment on above: Performed By: #### L IPD, CMP, CBC #### [facility] [address] [place], [place] [id number] Bilirubin [Mass/Vol] 0.37 mg/dL Normal 0.30-1.20 [facility] [employer] Comment on above: Performed By: #### L IPD, CMP, CBC #### [facility] [address] [place], [place] [id number] BUN/CREA 24 Ratio High 6-22 [facility] [employer] Comment on above: Performed By: #### L IPD, CMP, CBC #### [facility] [address] [place], [place] [id number] Calcium [Mass/Vol] 9.7 mg/dL Normal 8.6-10.2 [facility] [place] [employer] Comment on above: Performed By: #### L IPD, CMP, CBC #### [facility] [address] [place], [place] [id number] Chloride [Moles/Vol] 105 mmol/L Normal 98-107 [facility] Specialist Comment on above: Performed By: #### L IPD, CMP, CBC #### [facility] [address] [place], [place] [id number] CO2 [Moles/Vol] 27 mmol/L Normal 20-31 [facility] [employer] Comment on above: Performed By: #### L IPD, CMP, CBC #### [facility] [address] [place], [place] [id number] Creatinine [Mass/Vol] 0.8 mg/dL Normal 0.6-1.4 [facility] [employer] Comment on above: Performed By: #### L IPD, CMP, CBC #### [facility] [address] [place], [place] [id number] eGFRAA 84 mL/min/1.73m2 Normal >60 [facility] [employer] Comment on above: Performed By: #### L IPD, CMP, CBC #### [facility] [address] [place], [place] [id number] eGFRNAA 69 mL/min/1.73m2 Normal >60 [facility] [employer] Comment on above: Performed By: #### L IPD, CMP, CBC #### [facility] [address] [place], [place] [id number] Globulin (S) [Mass/Vol] 2.3 g/dL Normal 1.9-3.7 [facility] [employer] Comment on above: Performed By: #### L IPD, CMP, CBC #### [facility] [address] [place], [place] [id number] Glucose [Mass/Vol] 84 mg/dL Normal 65-99 [facility] [employer] Comment on above: Result Comment: For FASTING Glucose --- ADA reference ranges: Normal 65-99 mg/dl Prediabetes 100-125 Diabetes >/= 126 Performed By: #### L IPD, CMP, CBC #### [facility] [address], [place] [id number] Potassium [Moles/Vol] 4.5 mmol/L Normal 3.5-5.5 [facility] [employer] Comment on above: Performed By: #### L IPD, CMP, CBC #### [facility] [address], [place] [id number] Protein [Mass/Vol] 6.7 g/dL Normal 6.1-8.1 [facility] [place] [employer] Comment on above: Performed By: #### L IPD, CMP, CBC #### [facility] [address] [place], [place] [id number] Sodium [Moles/Vol] 143 mmol/L Normal 135-146 [facility] [employer] Comment on above: Performed By: #### L IPD, CMP, CBC #### [facility] [address] [place], [place] [id number] Urea nitrogen [Mass/Vol] 19 mg/dL Normal 7-25 [facility] [employer] Comment on above: Performed By: #### L IPD, CMP, CBC #### [facility] [address] [place], [place] [id number] Lipid Panelon 01-27-2022 Cholesterol [Mass/Vol] 231 mg/dL High 125-200 [facility] [employer] Comment on above: Result Comment: Low risk < 200mg/dL Borderline risk 201-239 mg/dl High risk > or equal to 240 Performed By: #### L IPD, CMP, CBC #### [facility] [address] [place], [place] [id number] Cholesterol in HDL [Mass/Vol] 47 mg/dL Normal >40 [facility] [employer] Comment on above: Result Comment: High Cardiovascular Risk HDL <40 mg/dL Low Cardiovascular Risk HDL > or equal to 60 mg/dl Performed By: #### L IPD, CMP, CBC #### [facility] [address] [place], [place] [id number] Cholesterol in LDL [Mass/Vol] 150 mg/dL Normal [facility] [employer] Comment on above: Result Comment: LDL ATP III CLASSIFICATION LDL less than 100 mg/dl Optimal LDL 100-129 mg/dl Near or above optimal LDL 130-159 Borderline high LDL 160-189 High LDL greater than 189 mg/dl Very High Performed By: #### L IPD, CMP, CBC #### [facility] [address] [place], [place] [id number] Cholesterol in VLDL [Mass/Vol] 34 mg/dL Normal [facility] [employer] Comment on above: Performed By: #### L IPD, CMP, CBC #### [facility] [address] [place], [place] [id number] Cholesterol.total/C holesterol in HDL [Mass ratio] 5 {ratio} Normal [facility] Specialist Comment on above: Performed By: #### L IPD, CMP, CBC #### [facility] [address], [place] [id number] Triglyceride [Mass/Vol] 171 mg/dL High 30-150 [facility] [employer] Comment on above: Result Comment: TRIG ATPIII CLASSIFICATIONS TRIG less than 150 mg/dl Normal TRIG 150-199 mg/dl Borderline High TRIG 200-500 mg/dl High TRIG greather than 500 mg/dl Very High Performed By: #### L IPD, CMP, CBC #### [facility] [address], [place] [id number] XR finger LT 5th digiton XR finger LT 5th digit [facility] [place] [address] XRay Report Signed Patient: Radha Chaney MR#: [id number] 13 : 1940 Acct:[id number] Age/Sex: 80 / F ADM Date: 02/04/21 Loc: [facility] Room: Type: [facility] Attending Dr: Lona MILLS Ordering Provider: LONA ENGEL Date of Service: 02/04/21 XR/XR finger LT 5th digit: Injury of left little finger, initial encounter Copies to: LONA ENGEL XR finger LT 5th digit 02/04/2021 11:14 AM SIGNS AND SYMPTOMS: Injury to left fifth digit with redness and swelling of the tip of the fifth digit PROTOCOL: Frontal, lateral, and oblique radiographs of the left hand and left fifth digit COMPARISON: None FINDINGS: There is a transversely fracture traversing the distal tuft of the fifth distal phalanx. There is narrowing of the distal interphalangeal joints, greatest in the fifth digit. Soft tissue swelling is noted over the distal aspect of fifth digit. There is no dislocation or subluxation. Degenerative changes are noted at the base of the thumb and at the first metacarpophalangeal junction. XR/XR finger LT 5th digit IMPRESSION: There is a transversely fracture traversing the distal tuft of the fifth distal phalanx. Soft tissue swelling is noted over the distal aspect of fifth digit. Scattered degenerative changes are noted throughout, as above. Impression dictated by: Dann Ochoa M.D.02/04/2021 11:30 AM Dictation Location: [place] [address] Transcribed By: LINDA 02/04/21 1130 Dictated By: Dann Ochoa II, MD 02/04/21 1128 Signed By: 02/04/21 1130 [facility] XR SPINE LUMBOSACRAL 5 VIEWS on 04-18-2020 XR SPINE LUMBOSACRAL 5 VIEWS EXAM: L-spine HISTORY: Back pain. Comparison studies: None TECHNIQUE: 5 weightbearing views of the lumbar spine were obtained, including lateral flexion and extension views. FINDINGS: There is no evidence of acute fracture or subluxation. The frontal view shows a levorotoscoliosis centered around the L2 level. The lateral view shows some straightening of the normal curvature. Range of motion is moderately limited, and at least some of the range of motion on this exam is through the hips and not the itself. No suspicious bone lesions are seen. Severe degenerative changes are seen. The rest of the visualized structures are unremarkable. IMPRESSION: No acute findings. Abnormal curvatures on both the frontal and lateral views with moderately limited range of motion and severe multilevel degenerative changes. If clinical concern remains, consider further imaging with MRI. Normal [facility] IMPRESSION: No acute findings. Abnormal curvatures on both the frontal and lateral views with moderately limited range of motion and severe multilevel degenerative changes. If clinical concern remains, consider further imaging with MRI. [facility] EXAM: L-spine HISTOR Y: Back pain. Comparison studies: None TECHNIQUE: 5 weightbearing views of the lumbar spine were obtained, including lateral flexion and extension views. FINDINGS: There is no evidence of acute fracture or subluxation. The frontal view shows a levorotoscoliosis centered around the L2 level. The lateral view shows some straightening of the normal curvature. Range of motion is moderately limited, and at least some of the range of motion on this exam is through the hips and not the itself. No suspicious bone lesions are seen. Severe degenerative changes are seen. The rest of the visualized structures are unremarkable. [facility] User, Interfaces - 04/18/2020 3:43 PM EDT EXAM: L-spine HISTORY: Back pain. Comparison studies: None TECHNIQUE: 5 weightbearing views of the lumbar spine were obtained, including lateral flexion and extension views. FINDINGS: There is no evidence of acute fracture or subluxation. The frontal view shows a levorotoscoliosis centered around the L2 level. The lateral view shows some straightening of the normal curvature. Range of motion is moderately limited, and at least some of the range of motion on this exam is through the hips and not the itself. No suspicious bone lesions are seen. Severe degenerative changes are seen. The rest of the visualized structures are unremarkable. IMPRESSION IMPRESSION: No acute findings. Abnormal curvatures on both the frontal and lateral views with moderately limited range of motion and severe multilevel degenerative changes. If clinical concern remains, consider further imaging with MRI. [facility] CBCon 12-01-2019 DTYPE MANUAL DIFF Normal [facility] Comment on above: Performed By: #### A CBC, PT, CMPF #### Testing performed at [address] [address] Eosinophils/100 WBC (Bld) 5 % Normal 0.0-11.0 [facility] Comment on above: Performed By: #### A CBC, PT, CMPF #### Testing performed at [address] [address] Lymphocytes/100 WBC (Bld) 24 % Normal 20.0-55.0 [facility] Comment on above: Performed By: #### A CBC, PT, CMPF #### Testing performed at [address] [address] Monocytes/100 WBC (Bld) 2 % Normal 0.0-10.0 [facility] Comment on above: Performed By: #### A CBC, PT, CMPF #### Testing performed at [address] [address] Neutrophils/100 WBC (Bld) 69 % Normal 37.0-75.0 [facility] Comment on above: Performed By: #### A CBC, PT, CMPF #### Testing performed at [address] [address] PLATELET COMMENT ADEQUATE Normal [facility] Comment on above: Performed By: #### A CBC, PT, CMPF #### Testing performed at [address] [address] RBC morphology finding Nom (Bld) NORMAL Normal [facility] Comment on above: Performed By: #### A CBC, PT, CMPF #### Testing performed at [address] [address] Erythrocyte distribution width (RBC) [Ratio] 15.0 % High 11.5-14.5 [facility] Comment on above: Performed By: #### A CBC, PT, CMPF #### Testing performed at [address] [address] Hematocrit (Bld) [Volume fraction] 36.5 % Normal 36.0-48.0 [facility] Comment on above: Performed By: #### A CBC, PT, CMPF #### Testing performed at [address] [address] Hemoglobin (Bld) [Mass/Vol] 12.3 g/dL Normal 12.0-16.0 [facility] Comment on above: Performed By: #### A CBC, PT, CMPF #### Testing performed at [address] [address] MCH (RBC) [Entitic mass] 28.0 pg Normal 26.0-35.0 [facility] Comment on above: Performed By: #### A CBC, PT, CMPF #### Testing performed at [address] [address] MCHC (RBC) [Mass/Vol] 33.6 g/dL Normal 27.0-37.0 [facility] Comment on above: Performed By: #### A CBC, PT, CMPF #### Testing performed at [address] [address] MCV (RBC) [Entitic vol] 83.3 fL Normal 80.0-100.0 [facility] Comment on above: Performed By: #### A CBC, PT, CMPF #### Testing performed at [address] [address] Platelet mean volume (Bld) [Entitic vol] 7.9 fL Normal 7.4-11.0 [facility] Comment on above: Performed By: #### A CBC, PT, CMPF #### Testing performed at [address] [address] Platelets (Bld) [#/Vol] 266 10*3/uL Normal 130.0-400.0 [facility] Comment on above: Performed By: #### A CBC, PT, CMPF #### Testing performed at [address] [address] RBC (Bld) [#/Vol] 4.38 10*6/uL Normal 4.0-5.4 [facility] Comment on above: Performed By: #### A CBC, PT, CMPF #### Testing performed at [address] [address] WBC (Bld) [#/Vol] 6.6 10*3/uL Normal 3.6-11.0 [facility] Comment on above: Performed By: #### A CBC, PT, CMPF #### Testing performed at [address] [address] CBC, EDIF, PLATELETon 2019 Differential cell count method Nom (Bld) MANUAL DIFF % [facility] Eosinophils/100 WBC (Bld) 5 % 0 - 11 % [facility] Erythrocyte distribution width (RBC) [Ratio] 15.0 % High 11.5 - 14.5 % [facility] Hematocrit (Bld) [Volume fraction] 36.5 % 36 - 48 % [facility] Hemoglobin (Bld) [Mass/Vol] 12.3 g/dL [facility] Lymphocytes/100 WBC (Bld) 24 % 20 - 55 % [facility] MCH (RBC) [Entitic mass] 28.0 pg 26 - [address] [facility] MCHC (RBC) [Mass/Vol] 33.6 g/dL [facility] MCV (RBC) [Entitic vol] 83.[address] [facility] Monocytes/100 WBC (Bld) 2 % 0 - 10 % [facility] Neutrophils/100 WBC (Bld) 69 % 37 - 75 % [facility] Platelet mean volume (Bld) [Entitic vol] 7.[address] [facility] Platelet morphology finding Nom (Bld) ADEQUATE [facility] Platelets (Bld) [#/Vol] 266 10*3/uL 130 - 400 10*3/uL [facility] RBC (Bld) [#/Vol] 4.38 10*6/uL 4 - 5.4 10*6/uL [facility] RBC morphology finding Nom (Bld) NORMAL [facility] WBC (Bld) [#/Vol] 6.6 10*3/uL 3.6 - 11 10*3/uL [facility] Otheron 12-01-2019 Interpretation and review of laboratory results Abnormal [employer] RENAL FUNCTION PANELon 12-01 Albumin [Mass/Vol] 2.5 G/dl Low 3.5 - 5 G/dl [facility] Calcium [Mass/Vol] 8.4 mg/dL [facility] Chloride [Moles/Vol] 108 mmol/L High [employer] CO2 [Moles/Vol] 24 mmol/L [facility] Creatinine [Mass/Vol] 0.74 mg/dL [facility] GFR/1.73 sq M predicted among blacks MDRD (S/P/Bld) [Vol rate/Area] mL/min/{1.73_m2} ml/min/1.73sq .m [facility] GFR/1.73 sq M predicted among non-blacks MDRD (S/P/Bld) [Vol rate/Area] mL/min/{1.73_m2} ml/min/1.73sq .m [facility] [employer] GFR/1.73 sq M predicted among non-blacks MDRD (S/P/Bld) [Vol rate/Area] Average GFR for 70+ years old = 75. [employer] Comment on above: Chronic Kidney disea se, GFR = <60. Kidney failure, GFR = <15. The GFR estimate is not adjusted for extreme body surface area or acute process, nor has it been validated for women or ethnic groups other than and . Glucose post fast [Mass/Vol] 105 mg/dL High [employer] Comment on above: NORMAL <100 mg/dL PREDIABETES 101-126 mg/dL DIABETES 126 mg/dL or higher Phosphate [Mass/Vol] 2.5 mg/dL [employer] Potassium [Moles/Vol] 4.3 mmol/L [facility] Sodium [Moles/Vol] 140 mmol/L [facility] Urea nitrogen [Mass/Vol] 16 mg/dL [facility] RENAL PANEL,FASTINGon 2019 Albumin [Mass/Vol] 2.5 G/dl Low 3.5-5.0 [facility] Comment on above: Performed By: #### A CBC, PT, CMPF #### Testing performed at [address] [address] Creatinine [Mass/Vol] 0.74 mg/dL Normal 0.52-1.04 [facility] Comment on above: Performed By: #### A CBC, PT, CMPF #### Testing performed at [address] [address] EST. GFR, >60 Normal [facility] Comment on above: Performed By: #### A CBC, PT, CMPF #### Testing performed at [place] [id number] EST. GFR,Non >60 Normal [facility] Comment on above: Performed By: #### A CBC, PT, CMPF #### Testing performed at [address] [address] GFR/1.73 sq M predicted among non-blacks MDRD (S/P/Bld) [Vol rate/Area] Average GFR for 70+ years old = 75. Normal [facility] Comment on above: Result Comment: Speech And Language Specialist karlee Kidney disease, GFR = <60. Kidney failure, GFR = <15. The GFR estimate is not adjusted for extreme body surface area or acute process, nor has it been validated for women or ethnic groups other than and . Performed By: #### A CBC, PT, CMPF #### Testing performed at [address] [address] PHOSPHOROUS 2.5 MG/DL Normal 2.5-4.5 [facility] Comment on above: Performed By: #### A CBC, PT, CMPF #### Testing performed at [address] [address] Urea nitrogen [Mass/Vol] 16 mg/dL Normal 7-20 [facility] Comment on above: Performed By: #### A CBC, PT, CMPF #### Testing performed at [address] [address] Calcium [Mass/Vol] 8.4 mg/dL Normal 8.4-10.2 [facility] Comment on above: Performed By: #### A CBC, PT, CMPF #### Testing performed at [address] [address] Chloride [Moles/Vol] 108 mmol/L High 98-107 [facility] Comment on above: Performed By: #### A CBC, PT, CMPF #### Testing performed at [address] [address] CO2 [Moles/Vol] 24 mmol/L Normal 22-30 [facility] Comment on above: Performed By: #### A CBC, PT, CMPF #### Testing performed at [address] [address] Glucose [Mass/Vol] 105 mg/dL High 70-100 [facility] Comment on above: Result Comment: NORMAL <100 mg/dL PREDIABETES 101-126 mg/dL DIABETES 126 mg/dL or higher Performed By: #### A CBC, PT, CMPF #### Testing performed at [address] [address] Potassium [Moles/Vol] 4.3 mmol/L Normal 3.5-5.1 [facility] Comment on above: Performed By: #### A CBC, PT, CMPF #### Testing performed at [address] [address] Sodium [Moles/Vol] 140 mmol/L Normal 136-145 [facility] Comment on above: Performed By: #### A CBC, PT, CMPF #### Testing performed at [address] [address] CBCon 11-30-2019 ABSOLUTE BAS 0.1 10*3/uL Normal 0.0-0.2 [facility] Comment on above: Performed By: #### A CBC, PT, CMPF #### Testing performed at [address] [address] ABSOLUTE EOS 0.00 10*3/uL Normal 0.0-0.7 [facility] Comment on above: Performed By: #### A CBC, PT, CMPF #### Testing performed at [address] [address] ABSOLUTE NEUTROPHIL COUNT 6.5 10*3/uL Normal 1.4-6.5 [facility] Comment on above: Performed By: #### A CBC, PT, CMPF #### Testing performed at [address] [address] Basophils/100 WBC (Bld) 1.0 % Normal 0.0-2.0 [facility] Comment on above: Performed By: #### A CBC, PT, CMPF #### Testing performed at [address] [address] DTYPE AUTO DIFF Normal [facility] Comment on above: Performed By: #### A CBC, PT, CMPF #### Testing performed at [address] [address] Eosinophils/100 WBC (Bld) 0.4 % Normal 0.0-11.0 [facility] Comment on above: Performed By: #### A CBC, PT, CMPF #### Testing performed at [address] [address] Lymphocytes (Bld) [#/Vol] 1.20 10*3/uL Normal 1.2-3.4 [facility] Comment on above: Performed By: #### A CBC, PT, CMPF #### Testing performed at [address] [address] Lymphocytes/100 WBC (Bld) 13.4 % Low 20.0-55.0 [facility] Comment on above: Performed By: #### A CBC, PT, CMPF #### Testing performed at [address] [address] Monocytes (Bld) [#/Vol] 1.0 10*3/uL High 0.0-0.7 [facility] Comment on above: Performed By: #### A CBC, PT, CMPF #### Testing performed at [address] [address] Monocytes/100 WBC (Bld) 11.5 % High 0.0-10.0 [facility] Comment on above: Performed By: #### A CBC, PT, CMPF #### Testing performed at [address] [address] Neutrophils/100 WBC (Bld) 73.7 % Normal 37.0-75.0 [facility] Comment on above: Performed By: #### A CBC, PT, CMPF #### Testing performed at [address] [address] Erythrocyte distribution width (RBC) [Ratio] 15.0 % High 11.5-14.5 [facility] Comment on above: Performed By: #### A CBC, PT, CMPF #### Testing performed at [address] [address] Hematocrit (Bld) [Volume fraction] 37.6 % Normal 36.0-48.0 [facility] Comment on above: Performed By: #### A CBC, PT, CMPF #### Testing performed at [address] [address] Hemoglobin (Bld) [Mass/Vol] 12.5 g/dL Normal 12.0-16.0 [facility] Comment on above: Performed By: #### A CBC, PT, CMPF #### Testing performed at [address] [address] MCH (RBC) [Entitic mass] 27.8 pg Normal 26.0-35.0 [facility] Comment on above: Performed By: #### A CBC, PT, CMPF #### Testing performed at [address] [address] MCHC (RBC) [Mass/Vol] 33.2 g/dL Normal 27.0-37.0 [facility] Comment on above: Performed By: #### A CBC, PT, CMPF #### Testing performed at [address] [address] MCV (RBC) [Entitic vol] 83.7 fL Normal 80.0-100.0 [facility] Comment on above: Performed By: #### A CBC, PT, CMPF #### Testing performed at [address] [address] Platelet mean volume (Bld) [Entitic vol] 8.1 fL Normal 7.4-11.0 [facility] Comment on above: Performed By: #### A CBC, PT, CMPF #### Testing performed at [address] [address] Platelets (Bld) [#/Vol] 268 10*3/uL Normal 130.0-400.0 [facility] Comment on above: Performed By: #### A CBC, PT, CMPF #### Testing performed at [address] [address] RBC (Bld) [#/Vol] 4.49 10*6/uL Normal 4.0-5.4 [facility] Comment on above: Performed By: #### A CBC, PT, CMPF #### Testing performed at [address] [address] WBC (Bld) [#/Vol] 8.8 10*3/uL Normal 3.6-11.0 [facility] Comment on above: Performed By: #### A CBC, PT, CMPF #### Testing performed at [address] [address] CBC, EDIF, PLATELETon 2019 ABSOLUTE BASOPHIL COUNT 0.1 10*3/uL 0 - 0.2 10*3/uL [facility] [employer] Basophils/100 WBC (Bld) 1.0 % 0 - 2 % [facility] [employer] Differential cell count method Nom (Bld) AUTO DIFF % [facility] [employer] Eosinophils (Bld) [#/Vol] 0.00 10*3/uL 0 - 0.7 10*3/uL [facility] [employer] Eosinophils/100 WBC (Bld) 0.4 % 0 - 11 % [facility] [employer] Erythrocyte distribution width (RBC) [Ratio] 15.0 % High 11.5 - 14.5 % [facility] [employer] Hematocrit (Bld) [Volume fraction] 37.6 % 36 - 48 % [facility] [employer] Hemoglobin (Bld) [Mass/Vol] 12.5 g/dL [facility] [employer] Lymphocytes (Bld) [#/Vol] 1.20 10*3/uL 1.2 - 3.4 10*3/uL [facility] [employer] Lymphocytes/100 WBC (Bld) 13.4 % Low 20 - 55 % [facility] [employer] MCH (RBC) [Entitic mass] 27.8 pg 26 - 35 [facility] [employer] MCHC (RBC) [Mass/Vol] 33.2 g/dL [facility] [employer] MCV (RBC) [Entitic vol] 83.7 fL [facility] [employer] Monocytes (Bld) [#/Vol] 1.0 10*3/uL High 0 - 0.7 10*3/uL [facility] [employer] Monocytes/100 WBC (Bld) 11.5 % High 0 - 10 % [facility] [employer] Neutrophils (Bld) [#/Vol] 6.5 10*3/uL 1.4 - 6.5 10*3/uL [facility] Neutrophils/100 WBC (Bld) 73.7 % 37 - 75 % [facility] [employer] Platelet mean volume (Bld) [Entitic vol] 8.1 fL [facility] [employer] Platelets (Bld) [#/Vol] 268 10*3/uL 130 - 400 10*3/uL [facility] RBC (Bld) [#/Vol] 4.49 10*6/uL 4 - 5.4 10*6/uL [facility] WBC (Bld) [#/Vol] 8.8 10*3/uL 3.6 - 11 10*3/uL [facility] Other[facility]-2019 Interpretation and review of laboratory results Abnormal [facility] RENAL FUNCTION PANELon 11-30 Albumin [Mass/Vol] 2.9 G/dl Low 3.5 - 5 G/dl [facility] Calcium [Mass/Vol] 8.7 mg/dL [facility] Chloride [Moles/Vol] 111 mmol/L High [employer] CO2 [Moles/Vol] 23 mmol/L [facility] Creatinine [Mass/Vol] 0.90 mg/dL [facility] GFR/1.73 sq M predicted among blacks MDRD (S/P/Bld) [Vol rate/Area] mL/min/{1.73_m2} ml/min/1.73sq .m [facility] [employer] GFR/1.73 sq M predicted among non-blacks MDRD (S/P/Bld) [Vol rate/Area] mL/min/{1.73_m2} ml/min/1.73sq .m [facility] [employer] GFR/1.73 sq M predicted among non-blacks MDRD (S/P/Bld) [Vol rate/Area] Average GFR for 70+ years old = 75. [facility] Comment on above: Chronic Kidney disea se, GFR = <60. Kidney failure, GFR = <15. The GFR estimate is not adjusted for extreme body surface area or acute process, nor has it been validated for women or ethnic groups other than and . Glucose post fast [Mass/Vol] 105 mg/dL High [facility] Comment on above: NORMAL <100 mg/dL PREDIABETES 101-126 mg/dL DIABETES 126 mg/dL or higher Phosphate [Mass/Vol] 2.6 mg/dL [facility] Potassium [Moles/Vol] 4.0 mmol/L [facility] Sodium [Moles/Vol] 141 mmol/L [facility] Urea nitrogen [Mass/Vol] 21 mg/dL High [facility] RENAL PANEL,FASTINGon 2019 Albumin [Mass/Vol] 2.9 G/dl Low 3.5-5.0 [facility] Comment on above: Performed By: #### A CBC, PT, CMPF #### [place] [address] Creatinine [Mass/Vol] 0.90 mg/dL Normal 0.52-1.04 [facility] Comment on above: Performed By: #### A CBC, PT, CMPF #### Testing performed at [place] [id number] EST. GFR, >60 Normal [facility] Comment on above: Performed By: #### A CBC, PT, CMPF #### Testing performed at [place] [id number] EST. GFR,Non >60 Normal [facility] Comment on above: Performed By: #### A CBC, PT, CMPF #### Testing performed at [place] [id number] GFR/1.73 sq M predicted among non-blacks MDRD (S/P/Bld) [Vol rate/Area] Average GFR for 70+ years old = 75. Normal [facility] Comment on above: Result Comment: Speech And Language Specialist karlee Kidney disease, GFR = <60. Kidney failure, GFR = <15. The GFR estimate is not adjusted for extreme body surface area or acute process, nor has it been validated for women or ethnic groups other than and . Performed By: #### A CBC, PT, CMPF #### Testing performed at [address] [address] PHOSPHOROUS 2.6 MG/DL Normal 2.5-4.5 [facility] Comment on above: Performed By: #### A CBC, PT, CMPF #### Testing performed at [address] [address] Urea nitrogen [Mass/Vol] 21 mg/dL High 7-20 [facility] Comment on above: Performed By: #### A CBC, PT, CMPF #### Testing performed at [address] [address] Calcium [Mass/Vol] 8.7 mg/dL Normal 8.4-10.2 [facility] Comment on above: Performed By: #### A CBC, PT, CMPF #### Testing performed at [address] [address] Chloride [Moles/Vol] 111 mmol/L High 98-107 [facility] Comment on above: Performed By: #### A CBC, PT, CMPF #### Testing performed at [address] [address] CO2 [Moles/Vol] 23 mmol/L Normal 22-30 [facility] Comment on above: Performed By: #### A CBC, PT, CMPF #### Testing performed at [address] [address] Glucose [Mass/Vol] 105 mg/dL High 70-100 [facility] Comment on above: Result Comment: NORMAL <100 mg/dL PREDIABETES 101-126 mg/dL DIABETES 126 mg/dL or higher Performed By: #### A CBC, PT, CMPF #### Testing performed at [address] [address] Potassium [Moles/Vol] 4.0 mmol/L Normal 3.5-5.1 [facility] Comment on above: Performed By: #### A CBC, PT, CMPF #### Testing performed at [address] [address] Sodium [Moles/Vol] 141 mmol/L Normal 136-145 [facility] Comment on above: Performed By: #### A CBC, PT, CMPF #### Testing performed at [address] [address] CBCon 11-29-2019 ABSOLUTE BAS 0.1 10*3/uL Normal 0.0-0.2 [facility] Comment on above: Performed By: #### A CBC, RENF #### Testing performed at [address] [address] ABSOLUTE EOS 0.00 10*3/uL Normal 0.0-0.7 [facility] Comment on above: Performed By: #### A CBC, RENF #### Testing performed at [address] [address] ABSOLUTE NEUTROPHIL COUNT 8.9 10*3/uL High 1.4-6.5 [facility] Comment on above: Performed By: #### A CBC, RENF #### Testing performed at [address] [address] Basophils/100 WBC (Bld) 0.7 % Normal 0.0-2.0 [facility] Comment on above: Performed By: #### A CBC, RENF #### Testing performed at [address] [place] [address] DTYPE AUTO DIFF Normal [facility] Comment on above: Performed By: #### A CBC, RENF #### Testing performed at [address] [address] Eosinophils/100 WBC (Bld) 0.4 % Normal 0.0-11.0 [facility] Comment on above: Performed By: #### A CBC, RENF #### Testing performed at [address] [address] Lymphocytes (Bld) [#/Vol] 1.10 10*3/uL Low 1.2-3.4 [facility] Comment on above: Performed By: #### A CBC, RENF #### Testing performed at [address] [address] Lymphocytes/100 WBC (Bld) 9.9 % Low 20.0-55.0 [facility] Comment on above: Performed By: #### A CBCSEAN #### Testing performed at [address] [address] Monocytes (Bld) [#/Vol] 0.8 10*3/uL High 0.0-0.7 [facility] Comment on above: Performed By: #### A CBCSEAN #### Testing performed at [address] [address] Monocytes/100 WBC (Bld) 7.6 % Normal 0.0-10.0 [facility] Comment on above: Performed By: #### A CBCSEAN #### Testing performed at [address] [address] Neutrophils/100 WBC (Bld) 81.4 % High 37.0-75.0 [facility] Comment on above: Performed By: #### A CBCSEAN #### Testing performed at [address] [address] Erythrocyte distribution width (RBC) [Ratio] 14.9 % High 11.5-14.5 [facility] Comment on above: Performed By: #### A CBCSEAN #### Testing performed at [address] [address] Hematocrit (Bld) [Volume fraction] 36.4 % Normal 36.0-48.0 [facility] Comment on above: Performed By: #### A CBCSEAN #### Testing performed at [address] [address] Hemoglobin (Bld) [Mass/Vol] 12.2 g/dL Normal 12.0-16.0 [facility] Comment on above: Performed By: #### A CBCSEAN #### Testing performed at [address] [address] MCH (RBC) [Entitic mass] 28.3 pg Normal 26.0-35.0 [facility] Comment on above: Performed By: #### A CBCSEAN #### Testing performed at [address] [address] MCHC (RBC) [Mass/Vol] 33.5 g/dL Normal 27.0-37.0 [facility] Comment on above: Performed By: #### A CBCSEAN #### Testing performed at [address] [address] MCV (RBC) [Entitic vol] 84.4 fL Normal 80.0-100.0 [facility] Comment on above: Performed By: #### A CBCSEAN #### Testing performed at [address] [address] Platelet mean volume (Bld) [Entitic vol] 8.3 fL Normal 7.4-11.0 [facility] Comment on above: Performed By: #### A CBCSEAN #### Testing performed at [address] [address] Platelets (Bld) [#/Vol] 268 10*3/uL Normal 130.0-400.0 [facility] Comment on above: Performed By: #### A CBCSEAN #### Testing performed at [address] [address] RBC (Bld) [#/Vol] 4.32 10*6/uL Normal 4.0-5.4 [facility] Comment on above: Performed By: #### A CBCSEAN #### Testing performed at [address] [address] WBC (Bld) [#/Vol] 10.9 10*3/uL Normal 3.6-11.0 [facility] Comment on above: Performed By: #### A CBCSEAN #### Testing performed at [address] [address] CBC, EDIF, PLATELETon 2019 ABSOLUTE BASOPHIL COUNT 0.1 10*3/uL 0 - 0.2 10*3/uL [facility] [employer] Basophils/100 WBC (Bld) 0.7 % 0 - 2 % [facility] [employer] Differential cell count method Nom (Bld) AUTO DIFF % [facility] [employer] Eosinophils (Bld) [#/Vol] 0.00 10*3/uL 0 - 0.7 10*3/uL [facility] [employer] Eosinophils/100 WBC (Bld) 0.4 % 0 - 11 % [facility] Erythrocyte distribution width (RBC) [Ratio] 14.9 % High 11.5 - 14.5 % [facility] Hematocrit (Bld) [Volume fraction] 36.4 % 36 - 48 % [facility] Hemoglobin (Bld) [Mass/Vol] 12.2 g/dL [facility] Lymphocytes (Bld) [#/Vol] 1.10 10*3/uL Low 1.2 - 3.4 10*3/uL [facility] Lymphocytes/100 WBC (Bld) 9.9 % Low 20 - 55 % [facility] MCH (RBC) [Entitic mass] 28.3 pg 26 - 35 PG [facility] MCHC (RBC) [Mass/Vol] 33.5 g/dL [facility] MCV (RBC) [Entitic vol] 84.4 fL [facility] Monocytes (Bld) [#/Vol] 0.8 10*3/uL High 0 - 0.7 10*3/uL [facility] Monocytes/100 WBC (Bld) 7.6 % 0 - 10 % [facility] Neutrophils (Bld) [#/Vol] 8.9 10*3/uL High 1.4 - 6.5 10*3/uL [facility] Neutrophils/100 WBC (Bld) 81.4 % High 37 - 75 % [facility] Platelet mean volume (Bld) [Entitic vol] 8.3 fL [facility] Platelets (Bld) [#/Vol] 268 10*3/uL 130 - 400 10*3/uL [facility] RBC (Bld) [#/Vol] 4.32 10*6/uL 4 - 5.4 10*6/uL [facility] WBC (Bld) [#/Vol] 10.9 10*3/uL 3.6 - 11 10*3/uL [facility] Otheron 11-29-2019 Interpretation and review of laboratory results Abnormal [facility] RENAL FUNCTION PANELon 11-29 Albumin [Mass/Vol] 3.0 G/dl Low 3.5 - 5 G/dl [facility] Calcium [Mass/Vol] 8.7 mg/dL [facility] Chloride [Moles/Vol] 111 mmol/L High [facility] CO2 [Moles/Vol] 23 mmol/L [facility] Creatinine [Mass/Vol] 0.87 mg/dL [facility] GFR/1.73 sq M predicted among blacks MDRD (S/P/Bld) [Vol rate/Area] mL/min/{1.73_m2} ml/min/1.73sq .m [facility] GFR/1.73 sq M predicted among non-blacks MDRD (S/P/Bld) [Vol rate/Area] Average GFR for 70+ years old = 75. [facility] Comment on above: Chronic Kidney disea se, GFR = <60. Kidney failure, GFR = <15. The GFR estimate is not adjusted for extreme body surface area or acute process, nor has it been validated for women or ethnic groups other than and . GFR/1.73 sq M predicted among non-blacks MDRD (S/P/Bld) [Vol rate/Area] mL/min/{1.73_m2} ml/min/1.73sq .m [facility] Glucose post fast [Mass/Vol] 123 mg/dL High [facility] Comment on above: NORMAL <100 mg/dL PREDIABETES 101-126 mg/dL DIABETES 126 mg/dL or higher Phosphate [Mass/Vol] 3.7 mg/dL [facility] Potassium [Moles/Vol] 4.3 mmol/L [facility] Sodium [Moles/Vol] 142 mmol/L [facility] Urea nitrogen [Mass/Vol] 18 mg/dL [facility] RENAL PANEL,FASTINGon 2019 Albumin [Mass/Vol] 3.0 G/dl Low 3.5-5.0 [facility] Comment on above: Performed By: #### A CBC, PT, CMPF #### [place] [address] Creatinine [Mass/Vol] 0.87 mg/dL Normal 0.52-1.04 [facility] Comment on above: Performed By: #### A CBC, PT, CMPF #### [place] [address] EST. GFR, >60 Normal [facility] Comment on above: Performed By: #### A CBC, PT, CMPF #### [place] [address] EST. GFR,Non >60 Normal [facility] Comment on above: Performed By: #### A CBC, PT, CMPF #### Testing performed at [address] [address] GFR/1.73 sq M predicted among non-blacks MDRD (S/P/Bld) [Vol rate/Area] Average GFR for 70+ years old = 75. Normal [facility] Comment on above: Result Comment: Speech And Language Specialist karlee Kidney disease, GFR = <60. Kidney failure, GFR = <15. The GFR estimate is not adjusted for extreme body surface area or acute process, nor has it been validated for women or ethnic groups other than and . Performed By: #### A CBC, PT, CMPF #### Testing performed at [address] [address] PHOSPHOROUS 3.7 MG/DL Normal 2.5-4.5 [facility] Comment on above: Performed By: #### A CBC, PT, CMPF #### Testing performed at [address] [address] Urea nitrogen [Mass/Vol] 18 mg/dL Normal 7-20 [facility] Comment on above: Performed By: #### A CBC, PT, CMPF #### Testing performed at [address] [address] Calcium [Mass/Vol] 8.7 mg/dL Normal 8.4-10.2 [facility] Comment on above: Performed By: #### A CBC, PT, CMPF #### Testing performed at [address] [address] Chloride [Moles/Vol] 111 mmol/L High 98-107 [facility] Comment on above: Performed By: #### A CBC, PT, CMPF #### Testing performed at [address] [address] CO2 [Moles/Vol] 23 mmol/L Normal 22-30 [facility] Comment on above: Performed By: #### A CBC, PT, CMPF #### Testing performed at [address] [address] Glucose [Mass/Vol] 123 mg/dL High 70-100 [facility] Comment on above: Result Comment: NORMAL <100 mg/dL PREDIABETES 101-126 mg/dL DIABETES 126 mg/dL or higher Performed By: #### A CBC, PT, CMPF #### Testing performed at [place] [id number] Potassium [Moles/Vol] 4.3 mmol/L Normal 3.5-5.1 [facility] Comment on above: Performed By: #### A CBC, PT, CMPF #### Testing performed at [place] [id number] Sodium [Moles/Vol] 142 mmol/L Normal 136-145 [facility] Comment on above: Performed By: #### A CBC, PT, CMPF #### Testing performed at [place] [id number] MRSA SCREENon 11-28-2019 MRSA DNA JERRICA+probe Ql (Unsp spec) Negative Normal NEGATIVE [facility] Comment on above: Result Comment: TEST ING PERFORMED BY PCR Performed By: #### M RSAST #### Testing performed at [place] [id number] SCREEN: MRSA ONLY, NARES (IS OLATION SCREEN)on 11-28-2019 MRSA isol Org specific cx Ql (Nose) Negative NEGATIVE [facility] STAPHYOCOCCUS AUREUS BY PCR Negative NEGATIVE 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 No acute fracture or dislocation. There is mild overlying air and soft tissue swelling. 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 No acute fracture or dislocation. There is mild overlying air and soft tissue swelling. 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 No acute fracture or dislocation. There is mild overlying air and soft tissue swelling. The visualized pelvis and right hip femur are intact [facility] IMPRESSION: Status p ost revision of left THR as described [facility] CBCon 11-06-2019 ABSOLUTE BAS 0.0 10*3/uL Normal 0.0-0.2 [facility] Comment on above: Performed By: #### A CBC, PT, CMPF #### Testing performed at [address] [address] ABSOLUTE EOS 0.20 10*3/uL Normal 0.0-0.7 [facility] Comment on above: Performed By: #### A CBC, PT, CMPF #### Testing performed at [address] [address] ABSOLUTE NEUTROPHIL COUNT 3.2 10*3/uL Normal 1.4-6.5 [facility] Comment on above: Performed By: #### A CBC, PT, CMPF #### Testing performed at [address] [address] Basophils/100 WBC (Bld) 0.4 % Normal 0.0-2.0 [facility] Comment on above: Performed By: #### A CBC, PT, CMPF #### Testing performed at [address] [address] DTYPE AUTO DIFF Normal [facility] Comment on above: Performed By: #### A CBC, PT, CMPF #### Testing performed at [address] [address] Eosinophils/100 WBC (Bld) 3.2 % Normal 0.0-11.0 [facility] Comment on above: Performed By: #### A CBC, PT, CMPF #### Testing performed at [address] [address] Lymphocytes (Bld) [#/Vol] 1.40 10*3/uL Normal 1.2-3.4 [facility] Comment on above: Performed By: #### A CBC, PT, CMPF #### Testing performed at [address] [address] Lymphocytes/100 WBC (Bld) 26.5 % Normal 20.0-55.0 [facility] Comment on above: Performed By: #### A CBC, PT, CMPF #### Testing performed at [address] [address] Monocytes (Bld) [#/Vol] 0.5 10*3/uL Normal 0.0-0.7 [facility] Comment on above: Performed By: #### A CBC, PT, CMPF #### Testing performed at [address] [address] Monocytes/100 WBC (Bld) 9.7 % Normal 0.0-10.0 [facility] Comment on above: Performed By: #### A CBC, PT, CMPF #### Testing performed at [address] [address] Neutrophils/100 WBC (Bld) 60.2 % Normal 37.0-75.0 [facility] Comment on above: Performed By: #### A CBC, PT, CMPF #### Testing performed at [address] [address] Erythrocyte distribution width (RBC) [Ratio] 14.6 % High 11.5-14.5 [facility] Comment on above: Performed By: #### A CBC, PT, CMPF #### Testing performed at [address] [address] Hematocrit (Bld) [Volume fraction] 41.4 % Normal 36.0-48.0 [facility] Comment on above: Performed By: #### A CBC, PT, CMPF #### Testing performed at [address] [address] Hemoglobin (Bld) [Mass/Vol] 14.3 g/dL Normal 12.0-16.0 [facility] Comment on above: Performed By: #### A CBC, PT, CMPF #### Testing performed at [address] [address] MCH (RBC) [Entitic mass] 28.8 pg Normal 26.0-35.0 [facility] Comment on above: Performed By: #### A CBC, PT, CMPF #### Testing performed at [address] [address] MCHC (RBC) [Mass/Vol] 34.5 g/dL Normal 27.0-37.0 [facility] Comment on above: Performed By: #### A CBC, PT, CMPF #### Testing performed at [address] [address] MCV (RBC) [Entitic vol] 83.2 fL Normal 80.0-100.0 [facility] Comment on above: Performed By: #### A CBC, PT, CMPF #### Testing performed at [address] [address] Platelet mean volume (Bld) [Entitic vol] 8.4 fL Normal 7.4-11.0 [facility] Comment on above: Performed By: #### A CBC, PT, CMPF #### Testing performed at [address] [address] Platelets (Bld) [#/Vol] 321 10*3/uL Normal 130.0-400.0 [facility] Comment on above: Performed By: #### A CBC, PT, CMPF #### Testing performed at [address] [address] RBC (Bld) [#/Vol] 4.98 10*6/uL Normal 4.0-5.4 [facility] Comment on above: Performed By: #### A CBC, PT, CMPF #### Testing performed at [address] [address] WBC (Bld) [#/Vol] 5.3 10*3/uL Normal 3.6-11.0 [facility] Comment on above: Performed By: #### A CBC, PT, CMPF #### Testing performed at [address] [address] CMP FASTINGon 11-06-2019 A:G RATIO 1.0 RATIO Low 1.3-2.2 [facility] Comment on above: Performed By: #### A CBC, PT, CMPF #### Testing performed at [address] [address] Albumin [Mass/Vol] 3.4 G/dl Low 3.5-5.0 [facility] Comment on above: Performed By: #### A CBC, PT, CMPF #### Testing performed at [address] [address] ALP [Catalytic activity/Vol] 62 U/L Normal 38-126 [facility] Comment on above: Performed By: #### A CBC, PT, CMPF #### Testing performed at [address] [address] ALT [Catalytic activity/Vol] 20 U/L Normal 14-54 [facility] Comment on above: Performed By: #### A CBC, PT, CMPF #### Testing performed at [address] [address] AST [Catalytic activity/Vol] 23 U/L Normal 15-41 [facility] Comment on above: Performed By: #### A CBC, PT, CMPF #### Testing performed at [address] [address] Bilirubin [Mass/Vol] 0.3 mg/dL Normal 0.2-1.2 [facility] Comment on above: Performed By: #### A CBC, PT, CMPF #### Testing performed at [address] [address] Creatinine [Mass/Vol] 0.79 mg/dL Normal 0.52-1.04 [facility] Comment on above: Performed By: #### A CBC, PT, CMPF #### Testing performed at [address] [address] EST. GFR, >60 Normal [facility] Comment on above: Performed By: #### A CBC, PT, CMPF #### Testing performed at [address] [address] EST. GFR,Non >60 Normal [facility] Comment on above: Performed By: #### A CBC, PT, CMPF #### Testing performed at [address] [address] GFR/1.73 sq M predicted among non-blacks MDRD (S/P/Bld) [Vol rate/Area] Average GFR for 70+ years old = 75. Normal [facility] Comment on above: Result Comment: Speech And Language Specialist karlee Kidney disease, GFR = <60. Kidney failure, GFR = <15. The GFR estimate is not adjusted for extreme body surface area or acute process, nor has it been validated for women or ethnic groups other than and . Performed By: #### A CBC, PT, CMPF #### Testing performed at [address] [address] Protein [Mass/Vol] 6.9 g/dL Normal 6.3-8.2 [facility] Comment on above: Performed By: #### A CBC, PT, CMPF #### Testing performed at [address] [address] Urea nitrogen [Mass/Vol] 20 mg/dL Normal 7-20 [facility] Comment on above: Performed By: #### A CBC, PT, CMPF #### Testing performed at [address] [address] Calcium [Mass/Vol] 9.5 mg/dL Normal 8.4-10.2 [facility] Comment on above: Performed By: #### A CBC, PT, CMPF #### Testing performed at [address] [address] Chloride [Moles/Vol] 107 mmol/L Normal 98-107 [facility] Comment on above: Performed By: #### A CBC, PT, CMPF #### Testing performed at [address] [address] CO2 [Moles/Vol] 27 mmol/L Normal 22-30 [facility] Comment on above: Performed By: #### A CBC, PT, CMPF #### Testing performed at [address] [address] Glucose [Mass/Vol] 75 mg/dL Normal 70-100 [facility] Comment on above: Result Comment: NORMAL <100 mg/dL PREDIABETES 101-126 mg/dL DIABETES 126 mg/dL or higher Performed By: #### A CBC, PT, CMPF #### Testing performed at [address] [address] Potassium [Moles/Vol] 4.7 mmol/L Normal 3.5-5.1 [facility] Comment on above: Performed By: #### A CBC, PT, CMPF #### Testing performed at [address] [address] Sodium [Moles/Vol] 143 mmol/L Normal 136-145 [facility] Comment on above: Performed By: #### A CBC, PT, CMPF #### Testing performed at [address] [address] HEMOGLOBIN A1Con 11-06-2019 HbA1c (Bld) [Mass fraction] 5.5 % Normal <6 [facility] Comment on above: Result Comment: NORMAL <5.7% PREDIABETES 5.7-6.4% DIABETES 6.5% OR HIGHER Performed By: #### H A1CT #### Testing performed at [address] [address] HbA1c (Bld) [Mass fraction] 111 mg/dL Normal [facility] Comment on above: Performed By: #### H A1CT #### Testing performed at [place] [id number] MRSA SCREENon 11-06-2019 MRSA DNA JERRICA+probe Ql (Unsp spec) Negative Normal NEGATIVE [facility] Comment on above: Result Comment: TEST ING PERFORMED BY PCR Performed By: #### M RSAST #### Testing performed at [address] [address] PROTIMEon 11-06-2019 INR Coag (PPP) [Relative time] 0.98 {INR} Normal 0.88-1.12 [facility] Comment on above: Result Comment: 2.0-3.0 THERAPEUTIC RANGE 2.5-3.5 MECHANICAL VALVE RANGE Performed By: #### A CBC, PT, CMPF #### Testing performed at [address] [address] PT Coag (PPP) [Time] 12.9 s Normal 11.8-14.4 [facility] Comment on above: Performed By: #### A CBC, PT, CMPF #### Testing performed at [address] [address] TYPE AND SCREEN CROSSMATCH C ONVERTIBLEon 11-06-2019 TYPE AND SCREEN CROSSMATCH CONVERTIBLE UNITS ORDERED 0 WORKUP EXPIRES 11/09/2019 ABO/RH(D) O NEGATIVE ANTIBODY SCREEN NEGATIVE ARM BAND NUMBER [id number] Normal [facility] Comment on above: Performed By: #### T SCC #### Testing performed at [address] [address] URINE MACROSCOPICon 20 19 Bilirubin Ql (U) Negative Normal NEGATIVE [facility] Comment on above: Performed By: #### U MAC #### Testing performed at [address] [address] Clarity (U) CLEAR Normal CLEAR [facility] Comment on above: Performed By: #### U MAC #### Testing performed at [address] [address] Color (U) YELLOW Normal YELLOW [facility] Comment on above: Performed By: #### U MAC #### Testing performed at [address] [address] Glucose Ql (U) Negative Normal NEGATIVE [facility] Comment on above: Performed By: #### U MAC #### Testing performed at [address] [address] pH (U) 7.0 [pH] Normal 5.0-7.0 [facility] Comment on above: Performed By: #### U MAC #### Testing performed at [address] [address] Protein (U) [Mass/Vol] Negative Normal NEGATIVE [facility] Comment on above: Performed By: #### U MAC #### Testing performed at [address] [address] URINE HEMOGLOBIN Negative Normal NEGATIVE [facility] Comment on above: Performed By: #### U MAC #### Testing performed at [address] [address] URINE KETONE Negative Normal NEGATIVE [facility] Comment on above: Performed By: #### U MAC #### Testing performed at [address] [address] URINE LEUKOTEST Negative Normal NEGATIVE [facility] Comment on above: Performed By: #### U MAC #### Testing performed at [address] [address] URINE NITRATES Negative Normal NEGATIVE [facility] Comment on above: Performed By: #### U MAC #### Testing performed at [address] [address] URINE SPEC GRAVITY 1.020 Normal 1.010-1.025 [facility] Comment on above: Performed By: #### U MAC #### Testing performed at [address] [address] Urobilinogen Qn (U) 0.2 {Arthur'U}/dL Normal 0.2-1.0 [facility] Comment on above: Performed By: #### U MAC #### Testing performed at [address] [address] Vital Signs Date Time Vital Sign Value Performing Clinician Facility 12-23-2023 09:53-0500 Body height 165.1 cm Star Mishra MD Work Phone: [facility] 12-23-2023 09:53-0500 Body mass index (BMI) [Ratio] 31.95 kg/m2 Star Mishra MD Work Phone: [facility] 12-23-2023 09:53-0500 Body weight 87.09 kg Star Mishra MD Work Phone: [facility] 12-17-2023 10:02-0500 Body height 165.1 cm Lisy Omalley MD Work Phone: [facility] 12-17-2023 10:02-0500 Body mass index (BMI) [Ratio] 31.95 kg/m2 Lisy Omalley MD Work Phone: [facility] 12-17-2023 10:02-0500 Body weight 87.09 kg Lisy Omalley MD Work Phone: [facility] 12-17-2023 10:02-0500 Diastolic blood pressure 82 mm[Hg] Lisy Omalley MD Work Phone: [facility] 12-17-2023 10:02-0500 Heart rate 68 /min Lisy Omalley MD Work Phone: [facility] 12-17-2023 10:02-0500 Respiratory rate 14 /min Lisy Omalley MD Work Phone: [facility] 12-17-2023 10:02-0500 Systolic blood pressure 148 mm[Hg] Lisy Omalley MD Work Phone: [facility] 03-28-2020 11:34-0400 BMI (Body Mass Index) 33.12 kg/m2 [facility] 03-28-2020 11:34-0400 Body Temperature 96.8 [degF] [facility] 03-28-2020 11:34-0400 Body weight 90.27 kg [facility] 03-28-2020 11:34-0400 Height 165.1 cm [facility] 01-10-2020 11:39-0500 BMI (Body Mass Index) 32.45 kg/m2 [facility] 01-10-2020 11:39-0500 Body Temperature 97.81 [degF] [facility] 01-10-2020 11:39-0500 Body weight 88.45 kg [facility] 01-10-2020 11:39-0500 Height 165.1 cm [facility] 12-21-2019 13:41-0500 BMI (Body Mass Index) 32.45 kg/m2 [facility] 12-21-2019 13:41-0500 Body Temperature 97.9 [degF] [facility] 12-21-2019 13:41-0500 Body weight 88.45 kg [facility] 12-21-2019 13:41-0500 Height 165.1 cm [facility] 12-01-2019 14:00-0500 Body Temperature 97.3 [degF] [facility] 12-01-2019 14:00-0500 BP Diastolic 60 mm[Hg] [facility] 12-01-2019 14:00-0500 BP Systolic 119 mm[Hg] [facility] 12-01-2019 14:00-0500 Pulse (Heart Rate) 77 /min [facility] 12-01-2019 14:00-0500 Pulse Oximetry 97 % [facility] 12-01-2019 14:00-0500 Respiratory Rate 18 /min [facility] 12-01-2019 04:00-0500 BMI (Body Mass Index) 33.6 kg/m2 [facility] 12-01-2019 04:00-0500 Body weight 91.6 kg [facility] 11-28-2019 08:32-0500 Height 165.1 cm [facility] 09-28-2019 15:25-0500 BMI (Body Mass Index) 32.45 kg/m2 [facility] 09-28-2019 15:25-0500 Body Temperature 98.01 [degF] [facility] 09-28-2019 15:25-0500 Body weight 88.45 kg [facility] 09-28-2019 15:25-0500 Height 165.1 cm [facility] 01-26-2019 09:56-0400 BMI (Body Mass Index) 30.79 kg/m2 [facility] 01-26-2019 09:56-0400 Body Temperature 96.69 [degF] [facility] 01-26-2019 09:56-0400 Height 165.1 cm [facility] 01-26-2019 09:56-0400 Weight 83.92 kg [facility] 11-17-2018 10:30-0500 BMI (Body Mass Index) 30.79 kg/m2 [facility] Work Phone: 11-17-2018 10:30-0500 Body Temperature 97.3 [degF] [facility] Work Phone: 11-17-2018 10:30-0500 Height 165.1 cm [facility] Work Phone: 11-17-2018 10:30-0500 Weight 83.92 kg [facility] Work Phone: 09-22-2018 09:47-0500 BP Diastolic 62 mm[Hg] Govind [facility] Work Phone: 09-22-2018 09:47-0500 BP Systolic 138 mm[Hg] Govind [employer] [facility] Work Phone: 09-22-2018 09:47-0500 Pulse (Heart Rate) 78 /min Govind [employer] [facility] Work Phone: 09-22-2018 09:41-0500 BMI (Body Mass Index) 28.98 kg/m2 Govind [employer] [facility] Work Phone: 09-22-2018 09:41-0500 Body Temperature 98.01 [degF] Govind [employer] [facility] Work Phone: 09-22-2018 09:41-0500 Height 170.2 cm Govind [employer] [facility] Work Phone: 09-22-2018 09:41-0500 Pulse Oximetry 97 % Govind [employer] [facility] Work Phone: 09-22-2018 09:41-0500 Respiratory Rate 18 /min Govind [employer] [facility] Work Phone: 09-22-2018 09:41-0500 Weight 83.92 kg Govind [employer] [facility] Work Phone: Encounters Encounter Date Encounter Type Care Provider Facility Start: 07-27-2024 End: 07-27-2024 ambulatory DEVEN GONZALEZ Not Available Start: 07-19-2024 End: 07-19-2024 ambulatory SHAYLA BRAUN Not Available Start: 06-29-2024 End: 06-29-2024 ambulatory SHAYLA BRAUN Not Available Start: 06-21-2024 End: 06-21-2024 ambulatory SHAYLA BRAUN Not Available Start: 06-08-2024 End: 06-08-2024 ambulatory SHAYLA BRAUN Not Available Start: 06-07-2024 End: 06-07-2024 ambulatory SHAYLA Gutierrez PRAVEEN Not Available Start: 06-01-2024 End: 06-01-2024 ambulatory STAR MISHRA Not Available Start: 05-18-2024 End: 05-18-2024 ambulatory DEVEN A CHRISTINA Not Available Start: 05-17-2024 End: 05-17-2024 ambulatory SHAYLA Gutierrez PRAVEEN Not Available Start: 05-10-2024 End: 05-10-2024 ambulatory SHAYLA Gutierrez PRAVEEN Not Available Start: 05-02-2024 End: 05-02-2024 ambulatory STAR MISHRA Not Available Start: 05-01-2024 End: 05-01-2024 ambulatory SHAYLA Gutierrez PRAVEEN Not Available Start: 03-09-2024 End: 03-09-2024 ambulatory DEVEN Gus CHRISTINA Not Available Start: 01-26-2024 End: 01-26-2024 ambulatory STAR MISHRA Not Available Start: 01-11-2024 End: 01-11-2024 ambulatory SHOLA Gus DANTE Not Available Start: 01-04-2024 End: 01-04-2024 ambulatory BYRON B APLING Not Available Start: 01-03-2024 End: 01-03-2024 ambulatory STAR MISHRA Not Available Start: 01-03-2024 End: 01-03-2024 ambulatory BYRON B APLING Not Available Start: 12-30-2023 End: 12-30-2023 ambulatory DEVEN A CHRISTINA Not Available Start: 12-23-2023 Bamboo melia lee MD Work Phone: [facility] Start: 12-23-2023 Bamsanchez lee MD Work Phone: [facility] Start: 12-23-2023 End: 12-23-2023 Office outpatient visit 25 minutes Star Mishra MD Work Phone: [facility] Comment on above: Chronic pain syndrom e (Primary Dx); Cervical dystonia; Acquired fusion of cervical spine; Neuroforaminal stenosis of cervical spine; Thoracic arthritis; Arthritis, lumbar spine; Degenerative disc disease, lumbar; Adverse effect of drug, initial encounter; Non morbid obesity due to excess calories Start: 12-23-2023 End: 12-23-2023 ambulatory STAR MISHRA Not Available Start: 12-22-2023 Chart abstracting Star yoder MD Work Phone: [facility] Start: 12-17-2023 Bamboo flowsheet Lisy cole MD Work Phone: [facility] Start: 12-17-2023 Bamboo flowsheet Lisy cole MD Work Phone: [facility] Start: 12-17-2023 End: 12-17-2023 Office outpatient visit 25 minutes Lisy Omalley MD Work Phone: [facility] Comment on above: Neuroforaminal steno sis of cervical spine (Primary Dx); Cervical dystonia Start: 12-17-2023 End: 12-17-2023 ambulatory LISY OMALLEY Not Available Start: 12-16-2023 Chart abstracting Lisy hinkle MD Work Phone: [facility] Start: 12-03-2023 End: 12-03-2023 ambulatory LISY OMALLEY Not Available Start: 10-19-2023 End: 10-20-2023 ambulatory STAR MISHRA Not Available Start: 10-08-2023 End: 10-08-2023 ambulatory STAR MISHRA Not Available Start: 09-17-2023 End: 09-17-2023 ambulatory STAR MISHRA Not Available Start: 01-20-2023 End: 01-21-[address] STAR MISHRA . Facility: Start: 04-18-2020 End: 04-18-2020 Subsequent hospital visit by physician Nelson Restrepo Work Phone: [facility] Start: 03-28-2020 End: 03-28-2020 Subsequent hospital visit by physician Tonio Horan Work Phone: [facility] Start: 03-28-2020 End: 03-28-2020 Office outpatient visit 15 minutes Tonio Horan Work Phone: [facility] Comment on above: History of total hip arthroplasty, left (Primary Dx); Acute pain of left knee; DDD (degenerative disc disease), lumbar Start: 01-10-2020 End: 01-10-2020 Subsequent hospital visit by physician Suhas Greene Work Phone: [facility] Start: 01-10-2020 End: 01-10-2020 Postop follow up visit related to original px Suhas Greene Work Phone: [facility] Comment on above: Hx of total hip arth roplasty, left (Primary Dx) Start: 12-21-2019 End: 12-21-2019 Postop follow up visit related to original raheel Greene Work Phone: [facility] Comment on above: Hx of total hip arth roplasty, left (Primary Dx) Start: 12-21-2019 End: 12-21-2019 Subsequent hospital visit by physician Suhas Saini Phone: [facility] Start: 11-28-2019 End: 12-01-2019 Evaluation and management of inpatient Tonio Horan Work Phone: [facility] Comment on above: Primary osteoarthrit is of left hip Start: 09-28-2019 End: 09-28-2019 Subsequent hospital visit by physician Tonio Horan Work Phone: [facility] Comment on above: Arrived Start: 09-28-2019 End: 09-28-2019 Subsequent hospital visit by physician Tonio Saini Phone: [facility] Start: 09-28-2019 End: 09-28-2019 Office outpatient visit 25 minutes Tonio Socialmoth Work Phone: [facility] Comment on above: History of total kne e arthroplasty, right (Primary Dx); Left hip pain Start: 01-26-2019 End: 01-26-2019 Office outpatient visit 15 minutes Tonio Horan Work Phone: [facility] Comment on above: History of total kne e arthroplasty, right (Primary Dx) Start: 01-26-2019 End: 01-26-2019 Patient encounter procedure Tonio Horan Work Phone: [facility] Start: 11-17-2018 End: 11-17-2018 Postop follow up visit related to original px Suhas Greene Work Phone: [facility] Comment on above: History of revision of total replacement of right knee joint (Primary Dx) Start: 10-27-2018 End: 10-27-2018 Patient encounter procedure Tonio Horan Work Phone: [facility] Start: 09-22-2018 End: 09-22-2018 Patient encounter procedure Tonio Horan Work Phone: [facility] Comment on above: Preop testing (Prima ry Dx); Osteoarthritis of right knee, unspecified osteoarthritis type; Hemarthrosis of right knee ; Other specified abnormal findings of blood chemistry Procedures Date Procedure Procedure Detail Performing Clinician Start: 04-18-2020 Diagnostic radiograp hy of lumbar spine Nelson Keane Niravkathie Work Phone: Start: 12-01-2019 CBC, EDIF, PLATELET Mago Greene Work Phone: Start: 12-01-2019 Renal function panel Di monisha Lau Work Phone: Start: 11-30-2019 Blood count complete auto&auto difrntl wbc Suhas Greene Work Phone: Start: 11-30-2019 Renal function panel Cari Lau Work Phone: Start: 11-29-2019 Blood count complete auto&auto difrntl wbc Suhas Greene Work Phone: Start: 11-29-2019 Renal function panel Cari Lau Work Phone: Start: 11-28-2019 Pelvis X-ray Suhas Greene Work Phone: Start: 11-28-2019 End: 11-28-2019 Arthrp acetblr/prox fem prostc agrft/algrft Tonio Horan Work Phone: Start: 11-28-2019 Cultyp nuc acid amp prb cult/isolate ea orgnism Suhas Greene Work Phone: Start: 10-04-2018 H/O: artificial joint Knee shravan nt replacement status iLsy Omalley MD Work Phone: Plan of Treatment Date Care Activity Detail Author Start: 09-13-2024 Medicare Annual Wellness (AWV) Medicare Annual Wellness (AWV) [facility] Start: 01-26-2024 End: 01-26-2024 Patient encounter procedure 01/26/2024 10:30 AM EDT Office Visit [facility] [address] [place] [address] Star Mishra MD [address], [place] [id number] [facility] Start: 01-20-2024 End: 01-20-2024 Patient encounter procedure 01/20/2024 10:00 AM EDT Office Visit [facility] [address] [facility] [address] [place] [address] Rena Perkins, WOOD STAINER [address] [facility] [address] [id number] [facility] Start: 12-30-2023 End: 12-30-2023 Patient encounter procedure 12/30/2023 2:30 PM EST Office Visit [facility] [address] [facility] [address] [place] [id number] Deven Gonzalez, SAMY [address] [facility] [address] [place] [address] [facility] Start: 12-23-2023 End: 12-23-2023 Patient encounter procedure [facility] Comment on above: Chronic pain syndrom e; Thoracic arthritis; Arthritis, lumbar spine; Acquired fusion of cervical spine; Degenerative disc disease, lumbar; Non morbid obesity due to excess calories Start: 12-17-2023 End: 12-17-2023 Clinical Support [facility] Comment on above: Arrived Start: 07-09-2023 Influenza vaccination Influenza Vacc ine (#1) [facility] Start: 12-01-2020 Potassium [Moles/Vol] POTASSIUM A [facility] Start: 11-28-2020 End: 11-28-2020 Office Visit 11/28/2020 Office Visit OrthopaedicSuhas Correia, AIR CONDITIONING SUPERVISOR-PUMPER GAGER APPRENTICE [address] [place] [address] [phone] [facility] Start: 07-09-2020 Influenza vaccination INFLUENZ A VACCINE (Season Ended) [facility] Start: 06-20-2020 End: 06-20-2020 Office Visit 06/20/2020 Office Visit Physical Medicine & Rehabilitation Nelson Restrepo, [address] [place] [address] [phone] [facility] Start: 04-18-2020 End: 04-18-2020 Office Visit 04/18/2020 Office Visit Physical Medicine & Rehabilitation Nelson Restrepo DO [address] [place] [address] [phone] [facility] Start: 04-04-2020 End: 04-04-2020 Office Visit 04/04/2020 Office Visit OrthopaedicTonio Murphy MD [address] [place] [address] [phone] [facility] Start: 01-24-2020 End: 01-24-2020 Office Visit 01/24/2020 Office Visit Suhas Mullen, AIR CONDITIONING SUPERVISOR-PUMPER GAGER APPRENTICE [address] [place] [address] [phone] [facility] Start: 01-10-2020 End: 01-10-2020 Office Visit 01/10/2020 Office Visit Suhas Mullen, AIR CONDITIONING SUPERVISOR-PUMPER GAGER APPRENTICE [address] [place] [address] [phone] [facility] Start: 12-21-2019 End: 12-21-2019 Office Visit 12/21/2019 Office Visit Suhas Mullen, AIR CONDITIONING SUPERVISOR-PUMPER GAGER APPRENTICE [address] [place] [address] [facility] Start: 10-30-2019 End: 10-30-2019 Pre-Operative Nurse Assessment 10/30/2019 Pre-Operative Nurse Assessment Internal Medicine [facility] Pre Admission Start: 09-28-2019 End: 09-28-[address] [facility] Comment on above: 1 Occurrences starti ng 09/28/2019 until 09/28/2019 Expected: 09/28/2019 , Expires: 09/28/2020 Start: 09-28-2019 End: 09-28-2019 Office Visit 09/28/2019 Office Visit Orthopaedics Suhas Greene, AIR CONDITIONING SUPERVISOR-PUMPER GAGER APPRENTICE [address] [place] [address] [phone] [facility] Start: 07-09-2019 Influenza vaccination INFLUENZA VACC INE (#1) [facility] Start: 01-26-2019 End: 01-26-2019 Ambulatory 01/26/2019 Office Visit Orthopaedics Tonio Horan MD [address] [place] [address] [phone] [facility] Start: 11-17-2018 End: 11-17-2018 Ambulatory 11/17/2018 Office Visit Orthopaedics Suhas Greene, AIR CONDITIONING SUPERVISOR-PUMPER GAGER APPRENTICE [address] [place] [address] [phone] [facility] Start: 10-04-2018 Ambulatory 10/04/2018 Pro cedure Pass [facility] Start: 10-04-2018 Inpatient Encounter [facility] Per[facility] Comment on above: REVISION ARTHROPLAST Y KNEE RIGHT Pain due to total ri ght knee replacement, initial encounter Start: 09-19-2018 End: 09-19-2019 Basic metabolic 2000 panel - Serum or Plasma BASIC METABOLIC PANEL Routine Preop testing Osteoarthritis of right knee, unspecified osteoarthritis type Expected: 09/19/2018, Expires: 09/19/2019 [facility] Work Phone: Comment on above: Expected: 09/19/2018 , Expires: 09/19/2019 Start: 09-19-2018 End: 09-19-2019 CBC, EDIF, PLATELET CBC, EDIF, PLATELET Routine Preop testing Osteoarthritis of right knee, unspecified osteoarthritis type Expected: 09/19/2018, Expires: 09/19/2019 [facility] Work Phone: Comment on above: Expected: 09/19/2018 , Expires: 09/19/2019 Start: 09-19-2018 End: 09-19-2019 Hemoglobin A1c/Hemoglobin.total mass fraction (Bld) HEMOGLOBIN A1C Routine Other specified abnormal findings of blood chemistry Preop testing Osteoarthritis of right knee, unspecified osteoarthritis type Expected: 09/19/2018, Expires: 09/19/2019 [facility] Work Phone: Comment on above: Expected: 09/19/2018 , Expires: 09/19/2019 Start: 09-19-2018 End: 09-19-2019 PROTIME-INR PROTIME-INR Routine Hemarthrosis of right knee Preop testing Osteoarthritis of right knee, unspecified osteoarthritis type Expected: 09/19/2018, Expires: 09/19/2019 [facility] Work Phone: Comment on above: Expected: 09/19/2018 , Expires: 09/19/2019 Start: 09-19-2018 End: 09-19-2019 SCREEN: MRSA ONLY, NARES (ISOLATION SCREEN) SCREEN: MRSA ONLY, NARES (ISOLATION SCREEN) Routine Preop testing Osteoarthritis of right knee, unspecified osteoarthritis type Expected: 09/19/2018, Expires: 09/19/2019 [facility] Work Phone: Comment on above: Expected: 09/19/2018 , Expires: 09/19/2019 Start: 09-19-2018 End: 09-19-2019 Standard ECG ECG Routine Preop testing Osteoarthritis of right knee, unspecified osteoarthritis type Expected: 09/19/2018, Expires: 09/19/2019 [facility] Work Phone: Comment on above: Expected: 09/19/2018 , Expires: 09/19/2019 Start: 09-19-2018 End: 09-19-2019 TYPE AND SCREEN - POSSIBLE TRANSFUSION TYPE AND SCREEN - POSSIBLE TRANSFUSION Routine Preop testing Osteoarthritis of right knee, unspecified osteoarthritis type Expected: 09/19/2018, Expires: 09/19/2019 [facility] Work Phone: Comment on above: Expected: 09/19/2018 , Expires: 09/19/2019 Start: 09-19-2018 End: 09-19-2019 URINALYSIS, MACRO URINALYSIS, MACRO Routine Preop testing Osteoarthritis of right knee, unspecified osteoarthritis type Expected: 09/19/2018, Expires: 09/19/2019 [facility] Work Phone: Comment on above: Expected: 09/19/2018 , Expires: 09/19/2019 Start: 07-09-2018 Influenza vaccination INFLUENZA VACC INE (#1) [facility] Work Phone: Start: 2007 Pneumococcal vaccination PNEUMOCOCCAL VACCINE SERIES (1 of 2 - PCV13) [facility] Work Phone: Start: 1992 Colonoscopy [facility] Start: 1992 Protein mass conc COLON CANCER SCREENING DISCUSSION [facility] Work Phone: Start: 1992 Zoster vaccine hzv live for subcutaneous use ZOSTER (SHINGLES) VACCINE (1 of 2) [facility] Start: 1982 Protein mass conc MAMMOGRAM SC REENING DISCUSSION [facility] Work Phone: Start: 1982 Screening mammography MAMMOGRA M SCREENING DISCUSSION [facility] Start: 1963 End: 1963 Screening for malignant neoplasm of cervix [facility] Work Phone: Start: 1961 End: 1961 Third diphtheria, tetanus and acellular pertussis (DTaP) vaccination TDAP (ADULT) [facility] Work Phone: Start: 1960 End: 1960 Tetanus vaccination [facility] Work Phone: Start: 1942 Screening for osteoporosis DEXA SCAN DISCUSSION [facility] Work Phone: Pelvis X-ray XR PELVIS 2 VIEW S Imaging Routine Left hip pain 09/28/2019 4:14 PM EST [employer] [facility] [employer] Radiography for bone length studies XR BONE LENGTH STUDY Imaging Routine History of total knee arthroplasty, right 01/26/2019 9:52 AM EDT [employer] End: 11-28-2019 Radiography of hip XR HIP LEFT 1 VIEWS Imaging Routine One Time for 1 Occurrences starting 11/28/2019 until 11/28/2019 [employer] Comment on above: One Time for 1 Occur rences starting 11/28/2019 until 11/28/2019 Radiography of hip XR HIP LEFT 1 VIEWS Imaging Routine 11/28/2019 12:00 PM [employer] Skeletal X-ray of pelvis and hip [employer] Comment on above: Ordered: 03/28/2020 SURGICAL PATHOLOGY REQUEST SURGICAL PATHOLOGY REQUEST Surg Path Routine Primary osteoarthritis of left hip ONE TIME for 1 Occurrences starting 11/28/2019 [employer] Comment on above: ONE TIME for 1 Occur rences starting 11/28/2019 X-ray of left knee XR KNEE LEFT 3 VIEWS Imaging Routine Acute pain of left knee History of total hip arthroplasty, left 03/28/2020 11:12 AM EDT [employer] X-ray of right knee [facility] Work Phone: Immunizations Immunization Date Immunization Notes Care Provider [facility] 09-20-2022 SARS-COV-2 (COVID-19 ) vaccine, mRNA, spike protein, LNP, bivalent, preservative free, 30 mcg/0.3 mL dose, yair-sucrose formulation Lisy Omalley MD Work Phone: [facility] 09-19-2021 pneumococcal polysaccharide vaccine, 23 valent Lisy Omalley MD Work Phone: [facility] 09-05-2021 Influenza, High-dose Seasonal, Quadrivalent, Preservative Free Lisy Omalley MD Work Phone: [facility] 09-05-2021 influenza virus vacc ine, unspecified formulation Lisy Omalley MD Work Phone: [facility] 02-27-2021 zoster vaccine recombinant B josé manuel Omalley MD Work Phone: [facility] 08-30-2020 pneumococcal conjuga te vaccine, 13 valent Lisy Omalley MD Work Phone: [facility] 08-30-2020 zoster vaccine recombinant B josé manuel Omalley MD Work Phone: [facility] 08-09-2020 influenza, injectabl e, quadrivalent, preservative free Lisy Omalley MD Work Phone: [facility] 08-09-2020 Influenza, Seasonal, Quadrivalent, Adjuvanted Lisy Omalley MD Work Phone: [facility] Payers Date Payer Category Payer Private Health Insurance [employer] A ETNA SENIOR SUPPLEMENT [id number] 2023-Present [address] [address] [place] [address] Supplement [id number] 2019 Unknown GENERIC PAYOR ME DICARE SUPPLEMENT [id number] 2019-Present [id number] 2017 Medicare MEDICARE MEDICAR E A AND B xxxxxxxxxxx 2017-Present [place], [place] xxxxxxxxxxx [id number] 2017 Medicare MEDICARE MEDICAR E A AND B [id number] 2017-Present [place], [place] [id number] 2017 Private Health Insurance xxx [id number] 2007 Medicare MEDICARE MEDICAR E PART B [id number] 2007-[place] [place] [address] Medicare [id number] 1959 Medicare [id number] 1959 Private Health Insurance CLI [id number] 1942 Unknown [id number] 2.16.840.1.294372.3.579.2 .593 1942 Unknown [id number] 2.16.840.1.930344.3.579.2 .125 1942 Unknown [id number] 2.16.840.1.230902.3.579.2 .125 1942 Unknown [id number] 2.16.840.1.774516.3.579.2 .125 1942 Unknown [id number] 2.16.840.1.007829.3.579.2 .125 1942 Unknown [id number] 2.16.840.1.528503.3.579.2 .125 1942 Unknown [id number] 2.16.840.1.859670.3.579.2 .1259 1942 Unknown [id number] 2.16.840.1.175879.3.579.2 .1259 1942 Unknown [id number] 2.16.840.1.436289.3.579.2 .125 1942 Unknown [id number] 2.16.840.1.569306.3.579.2 .125 1942 Unknown [id number] 2.16.840.1.703970.3.579.2 .1259 1942 Unknown [id number] 2.16.840.1.422711.3.579.2 .125 1942 Unknown [id number] 2.16.840.1.734023.3.579.2 .1258 1942 Unknown [id number] 2.16.840.1.589133.3.579.2 .1258 1942 Unknown [id number] 2.16.840.1.664108.3.579.2 .1258 1942 Unknown [id number] 2.16.840.1.419529.3.579.2 .1258 1942 Unknown [id number] 2.16.840.1.035222.3.579.2 .1258 1942 Unknown [id number] 2.16.840.1.735779.3.579.2 .1258 1942 Unknown [id number] 2.16.840.1.471687.3.579.2 .1258 1942 Unknown [id number] 2.16.840.1.872680.3.579.2 .1258 1942 Unknown [id number] 2.16.840.1.633328.3.579.2 .1258 1942 Unknown [id number] 2.16.840.1.010465.3.579.2 .1258 1942 Unknown [id number] 2.16.840.1.403102.3.579.2 .1258 1942 Unknown [id number] 2.16.840.1.281082.3.579.2 .1258 1942 Unknown [id number] 2.16.840.1.716552.3.579.2 .1258 1942 Unknown [id number] 2.16.840.1.459953.3.579.2 .1258 1942 Unknown [id number] 2.16.840.1.453579.3.579.2 .1258 1942 Unknown [id number] 2.16.840.1.546731.3.579.2 .1259 Social History Date Type Detail Facility Start: 09-22-2018 End: 08-02-2023 Tobacco smoking status NHIS Never smoker [facility] Start: 1940 Sex Assigned At Not on file [facility] Work Phone: Start: 09-28-2019 End: 03-28-2020 Alcohol intake Current non-drinker of alcohol (finding) [facility] Start: 03-28-2020 End: 08-02-2023 Tobacco use and exposure Never used [facility] Exposure to SARS-CoV -2 (event) Not sure [facility] Start: 12-03-2023 End: 12-23-2023 Alcohol intake Ex-drinker (finding) [facility] Start: 09-13-2023 End: 12-03-2023 History of Social function [facility] Start: 09-13-2023 End: 12-03-2023 Tobacco use panel [facility] Start: 08-02-2023 Education 13 [facility] Start: 08-02-2023 Alcohol Comment Caffeine intak e : 1 cup per day coffee [facility] Medical Equipment Procedure Code Equipment Code Equipment Origin al Text Equipment Identifier Dates Attune Knee Syst em Revision Posterior Femoral Augment Start: 10-04-2018 1.7mm Cable With Crimp 750mm Sterile Start: 10-04-2018 Attune Knee Syst em Revision Crs Rotating Platform Insert Start: 10-04-2018 Attune Knee Syst em Revision Distal Femoral Augment Start: 10-04-2018 Palacos R+G Bone Cement With Gentamicin Start: 10-04-2018 Palacos R+G Bone Cement With Gentamicin Start: 10-04-2018 Attune Knee Syst em Revision Pressfit Stem Start: 10-04-2018 Attune Knee Syst em Revision Femoral Sleeve Porocoat Fully Coated Start: 10-04-2018 Revision Crs Femoral Star t: 10-04-2018 Attune Knee Syst em Revision Tibial Base Rotating Platform Start: 10-04-2018 Attune Knee Syst em Revision Tibial Sleeve Porocoat Fully Coated Start: 10-04-2018 Attune Knee Syst em Revision Posterior Femoral Augment Start: 10-04-2018 Attune Knee Syst em Revision Pressfit Stem Start: 10-04-2018 Attune Knee Syst em Revision Distal Femoral Augment Start: 10-04-2018 Attune Knee Syst em Revision Posterior Femoral Augment Start: 10-04-2018 1.7mm Cable With Crimp 750mm Sterile Start: 10-04-2018 Attune Knee Syst em Revision Crs Rotating Platform Insert Start: 10-04-2018 Attune Knee Syst em Revision Distal Femoral Augment Start: 10-04-2018 Palacos R+G Bone Cement With Gentamicin Start: 10-04-2018 Palacos R+G Bone Cement With Gentamicin Start: 10-04-2018 Attune Knee Syst em Revision Pressfit Stem Start: 10-04-2018 Attune Knee Syst em Revision Femoral Sleeve Porocoat Fully Coated Start: 10-04-2018 Revision Crs Femoral Star t: 10-04-2018 Attune Knee Syst em Revision Tibial Base Rotating Platform Start: 10-04-2018 Attune Knee Syst em Revision Tibial Sleeve Porocoat Fully Coated Start: 10-04-2018 Attune Knee Syst em Revision Posterior Femoral Augment Start: 10-04-2018 Attune Knee Syst em Revision Pressfit Stem Start: 10-04-2018 Attune Knee Syst em Revision Distal Femoral Augment Start: 10-04-2018 Attune Knee Syst em Revision Posterior Femoral Augment Start: 10-04-2018 Attune Knee Syst em Revision Posterior Femoral Augment Start: 10-04-2018 1.7mm Cable With Crimp 750mm Sterile Start: 10-04-2018 1.7mm Cable With Crimp 750mm Sterile Start: 10-04-2018 Attune Knee Syst em Revision Crs Rotating Platform Insert Start: 10-04-2018 Attune Knee Syst em Revision Crs Rotating Platform Insert Start: 10-04-2018 Attune Knee Syst em Revision Distal Femoral Augment Start: 10-04-2018 Attune Knee Syst em Revision Distal Femoral Augment Start: 10-04-2018 Palacos R+G Bone Cement With Gentamicin Start: 10-04-2018 Palacos R+G Bone Cement With Gentamicin Start: 10-04-2018 Palacos R+G Bone Cement With Gentamicin Start: 10-04-2018 Palacos R+G Bone Cement With Gentamicin Start: 10-04-2018 Attune Knee Syst em Revision Pressfit Stem Start: 10-04-2018 Attune Knee Syst em Revision Pressfit Stem Start: 10-04-2018 Attune Knee Syst em Revision Femoral Sleeve Porocoat Fully Coated Start: 10-04-2018 Attune Knee Syst em Revision Femoral Sleeve Porocoat Fully Coated Start: 10-04-2018 Revision Crs Femoral Star t: 10-04-2018 Revision Crs Femoral Star t: 10-04-2018 Attune Knee Syst em Revision Tibial Base Rotating Platform Start: 10-04-2018 Attune Knee Syst em Revision Tibial Base Rotating Platform Start: 10-04-2018 Attune Knee Syst em Revision Tibial Sleeve Porocoat Fully Coated Start: 10-04-2018 Attune Knee Syst em Revision Tibial Sleeve Porocoat Fully Coated Start: 10-04-2018 Attune Knee Syst em Revision Posterior Femoral Augment Start: 10-04-2018 Attune Knee Syst em Revision Posterior Femoral Augment Start: 10-04-2018 Attune Knee Syst em Revision Pressfit Stem Start: 10-04-2018 Attune Knee Syst em Revision Pressfit Stem Start: 10-04-2018 Attune Knee Syst em Revision Distal Femoral Augment Start: 10-04-2018 Attune Knee Syst em Revision Distal Femoral Augment Start: 10-04-2018 Attune Knee Syst em Revision Posterior Femoral Augment Start: 10-04-2018 Attune Knee Syst em Revision Posterior Femoral Augment Start: 10-04-2018 1.7mm Cable With Crimp 750mm Sterile Start: 10-04-2018 1.7mm Cable With Crimp 750mm Sterile Start: 10-04-2018 Attune Knee Syst em Revision Crs Rotating Platform Insert Start: 10-04-2018 Attune Knee Syst em Revision Crs Rotating Platform Insert Start: 10-04-2018 Attune Knee Syst em Revision Distal Femoral Augment Start: 10-04-2018 Attune Knee Syst em Revision Distal Femoral Augment Start: 10-04-2018 Palacos R+G Bone Cement With Gentamicin Start: 10-04-2018 Palacos R+G Bone Cement With Gentamicin Start: 10-04-2018 Palacos R+G Bone Cement With Gentamicin Start: 10-04-2018 Palacos R+G Bone Cement With Gentamicin Start: 10-04-2018 Attune Knee Syst em Revision Pressfit Stem Start: 10-04-2018 Attune Knee Syst em Revision Pressfit Stem Start: 10-04-2018 Attune Knee Syst em Revision Femoral Sleeve Porocoat Fully Coated Start: 10-04-2018 Attune Knee Syst em Revision Femoral Sleeve Porocoat Fully Coated Start: 10-04-2018 Revision Crs Femoral Star t: 10-04-2018 Revision Crs Femoral Star t: 10-04-2018 Attune Knee Syst em Revision Tibial Base Rotating Platform Start: 10-04-2018 Attune Knee Syst em Revision Tibial Base Rotating Platform Start: 10-04-2018 Attune Knee Syst em Revision Tibial Sleeve Porocoat Fully Coated Start: 10-04-2018 Attune Knee Syst em Revision Tibial Sleeve Porocoat Fully Coated Start: 10-04-2018 Attune Knee Syst em Revision Posterior Femoral Augment Start: 10-04-2018 Attune Knee Syst em Revision Posterior Femoral Augment Start: 10-04-2018 Attune Knee Syst em Revision Pressfit Stem Start: 10-04-2018 Attune Knee Syst em Revision Pressfit Stem Start: 10-04-2018 Attune Knee Syst em Revision Distal Femoral Augment Start: 10-04-2018 Attune Knee Syst em Revision Distal Femoral Augment Start: 10-04-2018 Attune Knee Syst em Revision Posterior Femoral Augment [id number] Start: 10-04-2018 1.7mm Cable With Crimp 750mm Sterile [id number] Start: 10-04-2018 Attune Knee Syst em Revision Crs Rotating Platform Insert [id number] Start: 10-04-2018 Attune Knee Syst em Revision Distal Femoral Augment [id number] Start: 10-04-2018 Palacos R+G Bone Cement With Gentamicin [id number] Start: 10-04-2018 Palacos R+G Bone Cement With Gentamicin [id number] Start: 10-04-2018 Attune Knee Syst em Revision Pressfit Stem [id number] Start: 10-04-2018 Attune Knee Syst em Revision Femoral Sleeve Porocoat Fully Coated [id number] Start: 10-04-2018 Revision Crs Femoral [id number] Star t: 10-04-2018 Attune Knee Syst em Revision Tibial Base Rotating Platform [id number] Start: 10-04-2018 Attune Knee Syst em Revision Tibial Sleeve Porocoat Fully Coated [id number] Start: 10-04-2018 Attune Knee Syst em Revision Posterior Femoral Augment [id number] Start: 10-04-2018 Attune Knee Syst em Revision Pressfit Stem [id number] Start: 10-04-2018 Attune Knee Syst em Revision Distal Femoral Augment [id number] Start: 10-04-2018 Artelon Tissue Reinforcement 4cm X 6cm [id number] Start: 11-28-2019 Biolox Delta Cer amic Femoral Head 28mm Teresa +5.0 10/21 Taper [id number] Start: 11-28-2019 Femoral Stem Taper Actis Duofix Hip Prosthesis Cementless Size 5 Std Collar [id number] Start: 11-28-2019 Bi-Mentum Pe Yamile er 28/53 [id number] Start: 11-28-2019 Bi-Mentum Pressf it Cup 53 [id number] Start: 11-28-2019 History of Present illness Narrative 12-23-2023 Star Mishra MD - 12/23/2023 10:00 AM EST Note Date & Type Note Facility 12-23-2023 History of Presen t illness Narrative Patient ID: Radha Chaney is a 83 y.o. female who presents for: Pt is here for follow-up of chronic pain related to back and neck pain. Her/His pain is plateauing after having progressed. Pain is usually 7/10, described as shooting and occurs when active. She has saw Dr Omalley a couple times. She has had two injections in her neck which did not last. She gave me a written piece of paper with what she has tried and what has happened when she has tried them. She certainly had a significantly bad reaction to baclofen. She tolerated the tizanidine but perceive no benefit from it. I also reviewed Dr. Omalley's Note. Review of Systems Constitutional: Negative for chills and fever. Respiratory: Negative for cough, shortness of breath and wheezing. Cardiovascular: Negative for chest pain and palpitations. Gastrointestinal: Negative for abdominal pain. Genitourinary: Negative for frequency and urgency. Objective The patient is pleasant and in no acute distress The head is normocephalic and atraumatic Although no formal testing is done, patient does not appear to have a gross neurologic deficit concerning memory and goal directed thinking during the interview. The patient has good eye contact and clear speech. Sitting in her chair, her shoulders are slightly forward with some mild rotation. Her head is slightly tilted downwards with a slight rotation to the right. She is using her eyes to look straight on. On palpation she has significant suboccipital spasm right greater than left. She has paraspinal hypertonicity that extends at least midway down through the thoracic region. She has extremely decreased range of motion. Her arms move symmetrically although she can't really raise them above her head very much. Rn Night strength is symmetrical. Visit Vitals Ht 5' 5 Wt 192 lb BMI 31.95 kg/m OB Status Postmenopausal Smoking Status Never BSA 2 m No Known Allergies Current Outpatient Medications Medication Instructions aspirin (ASPIR) 81 mg, Oral, Daily cholecalciferol (VITAMIN D-3) 5,000 Units, Oral, Daily coenzyme Q-10 100 MG capsule diphenhydrAMINE-acetaminophen (Tylenol PM) 25-500 MG per tablet 1 tablet, Oral, Nightly PRN gabapentin (NEURONTIN) 300 mg, Oral, 3 times daily multivitamin (Theragran) tablet 1 tablet, Oral, Daily rosuvastatin (CRESTOR) 5 mg, Oral, Nightly Assessment/Plan Diagnoses and all orders for this visit: Chronic pain syndrome Chronic problem, stable, multifactorial, with complex decision making. The patient presents for reevaluation of their chronic pain syndrome and treatment recommendations. They note, that the pain is still present but Not under reasonable control with home therapies and medications. They state that they are taking their medications compliantly and perceiving a benefit specifically from these medications, With the exception of Zanaflex which did not help at all, and baclofen that caused next day sedation. The treatment program Does not enable them to continue their activities of daily living. Continuation of the patient's current treatment plan appears to be medically appropriate, providing a degree of relief of the patient's symptoms. Personally I do not think her pain is adequately controlled. However, the patient is unwilling in so many different directions to get help. She is unwilling to be referred to pain management or neurosurgery. Neurology has recommended Botox injections and she is unwilling to get those. I asked her how I can help and she just wants me to magically make her pain go away. I did briefly review her MRI with her and discussed how these are anatomical changes that are not going to go away. I did discuss with her how to use heat packs followed by sports creams to try and get some degree of relief since she doesn't want anything else. I even broached the subject of getting a home TENS unit, but she didn't want to do this either. Follow-up longitudinally. Cervical dystonia Chronic problem, unstable in nature, causing significant pain and interfering with her activities of daily living. A component of the chronic pain syndrome. See the above discussion. Acquired fusion of cervical spine Chronic problem, unstable in nature, causing significant pain and interfering with her activities of daily living. A component of the chronic pain syndrome. See the above discussion. Neuroforaminal stenosis of cervical spine Chronic problem, unstable in nature, causing significant pain and interfering with her activities of daily living. A component of the chronic pain syndrome. See the above discussion. Thoracic arthritis Chronic problem, unstable in nature, causing significant pain and interfering with her activities of daily living. A component of the chronic pain syndrome. See the above discussion. Arthritis, lumbar spine Chronic problem, unstable in nature, causing significant pain and interfering with her activities of daily living. A component of the chronic pain syndrome. See the above discussion. Degenerative disc disease, lumbar Chronic problem, unstable in nature, causing significant pain and interfering with her activities of daily living. A component of the chronic pain syndrome. See the above discussion. Adverse effect of drug, initial encounter New, chronic problem. She took the baclofen at bedtime and noted she was extremely tired and on over for most of the next day. She absolutely will not take baclofen anymore even in consideration of a potential lower dose. I did offer to try some other muscle relaxants with her, noting that it truly would be a trial and error process to see if we could find one that she can tolerate and give her relief. She declined. Non morbid obesity due to excess calories documented in this encounter [facility] History of Present illness Narrative 12-17-2023 Lisy Omalley MD - 12/17/2023 10:10 AM EST Note Date & Type Note Facility 12-17-2023 History of Presen t illness Narrative Subjective Radha Chaney is a 83 y.o. female. HPI Today presents an 83 year old female referred here for chronic cervical /plexus pain . States pain is in bilateral sides but left is the worst. Possible injections today . States the last one seemed to only last about 2 days . BP 148/82 (BP Location: Left arm) Pulse 68 Resp 14 Ht 5' 5 Wt 192 lb BMI 31.95 kg/m No Known Allergies Current Outpatient Medications: aspirin (ASPIR) 81 MG EC tablet, Take 81 mg by mouth in the morning., Disp: , Rfl: cholecalciferol (Vitamin D-3) 125 MCG (5000 UT) tablet, Take 5,000 Units by mouth in the morning., Disp: , Rfl: coenzyme Q-10 100 MG capsule, , Disp: , Rfl: dexAMETHasone (Decadron) 2 MG tablet, Take 1 tablet (2 mg) by mouth in the morning and 1 tablet (2 mg) in the evening. Take with meals. Do all this for 7 days., Disp: 14 tablet, Rfl: 1 diphenhydrAMINE-acetaminophen (Tylenol PM) 25-500 MG per tablet, Take 1 tablet by mouth as needed at bedtime for sleep., Disp: , Rfl: gabapentin (Neurontin) 300 MG capsule, Take 1 capsule (300 mg) by mouth in the morning and 1 capsule (300 mg) in the evening and 1 capsule (300 mg) before bedtime., Disp: 270 capsule, Rfl: 1 multivitamin (Theragran) tablet, Take 1 tablet by mouth in the morning., Disp: , Rfl: nabumetone (Relafen) 750 MG tablet, Take 1 tablet (750 mg) by mouth in the morning and 1 tablet (750 mg) before bedtime., Disp: 180 tablet, Rfl: 0 rosuvastatin (Crestor) 5 MG tablet, Take 1 tablet (5 mg) by mouth at bedtime., Disp: 90 tablet, Rfl: 1 tiZANidine (Zanaflex) 4 MG tablet, Take 1 tablet (4 mg) by mouth every 6 (six) hours if needed for muscle spasms for up to 10 days, Disp: 30 tablet, Rfl: 3 Past Medical History: Diagnosis Date Closed fracture of shaft of metatarsal bone of left foot History of squamous cell carcinoma in situ Osteoarthritis of both knees Primary osteoarthritis of left hip Restless leg syndrome Sciatic nerve pain, left 01/07/2021 Past Surgical History: Procedure Laterality Date FOOT SURGERY Left Hammer toe & bunion HYSTERECTOMY KNEE ARTHROPLASTY Right 09/2018 Imani Horan KNEE SURGERY Left 06/20/2015 Dr. Moon SHOULDER ARTHROSCOPY Right 2013 [place] SHOULDER ARTHROSCOPY W/ ROTATOR CUFF REPAIR Left TOTAL HIP ARTHROPLASTY 08/28/2020 TOTAL KNEE ARTHROPLASTY Left 05/25/2016 TOTAL KNEE ARTHROPLASTY Right 09/07/2016 Family History Problem Relation Name Age of Onset Diabetes Mother Heart disease Father No Known Problems Brother No Known Problems Daughter No Known Problems Son Melanoma Neg Hx reports that she has never smoked. She has never used smokeless tobacco. She reports that she does not currently use alcohol. She reports that she does not use drugs. Review of Systems Constitutional: Negative for chills, diaphoresis, fatigue and fever. HENT: Negative for ear pain, tinnitus and trouble swallowing. Eyes: Negative for photophobia and visual disturbance. Respiratory: Negative for cough and shortness of breath. Cardiovascular: Negative for palpitations and leg swelling. Gastrointestinal: Negative for abdominal pain and nausea. Genitourinary: Negative for difficulty urinating and urgency. Musculoskeletal: Positive for back pain, neck pain and neck stiffness. Negative for arthralgias and myalgias. Neurological: Negative for tremors, weakness, light-headedness and numbness. Psychiatric/Behavioral: Negative for agitation, confusion and suicidal ideas. Objective Neurological Exam Mental Status Awake, alert and oriented to person, place and time. Oriented to person, place and time. Recent and remote memory are intact. Speech is normal. Language is fluent with no aphasia. Attention and concentration are normal. Cranial Nerves CN II: Visual acuity is normal. Visual allen full to confrontation. CN III, IV, : Extraocular movements intact bilaterally. Normal lids and orbits bilaterally. Pupils equal round and reactive to light bilaterally. CN V: Facial sensation is normal. CN VII: Full and symmetric facial movement. CN VIII: Hearing is normal. CN XII: Tongue midline without atrophy or fasciculations. Motor Normal muscle bulk throughout. Normal muscle tone. Right Left Wrist flexion 5 5 Wrist extension 5 5 Right Left Deltoid 5 5 Biceps 5 5 Triceps 5 5 Wrist flexor 5 5 Wrist extensor 5 5 Glutei 5 5 Iliopsoas 5 5 Quadriceps 5 5 Gastrocnemius 5 5 Anterior tibialis 5 5 Posterior tibialis 5 5 Sensory Light touch is normal in upper and lower extremities. Pinprick is normal in upper and lower extremities. Vibration is normal in upper and lower extremities. Reflexes Right Left Brachioradialis 2+ 2+ Biceps 2+ 2+ Patellar 2+ 2+ Achilles 2+ 2+ Right Plantar: downgoing Left Plantar: downgoing Right pathological reflexes: Mp's absent. Ankle clonus absent. Left pathological reflexes: Mp's absent. Ankle clonus absent. Coordination Gldzrn-[id number], rapid alternating movements and [id number] normal bilaterally without dysmetria. Gait Normal casual, toe, heel and tandem gait. Romberg is absent. Assessment/Plan There are no diagnoses linked to this encounter. Radha Chaney is a 83 y.o. year old female that presents with neck pain. The possible etiologies include cervical degenerative disc disease or facet joint disease. The patient also complains of radicular pain and paresthesias into the upper extremities possibly due to cervical radiculopathy, brachial plexopathy or peripheral neuropathy. She does have severe cervical dystonia and I will set her up wit a Botox consult to see if this will help with her mobility. 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 Thoracic arthritis Thoracic spondylosis without myelopathy Arthritis, lumbar spine Degenerative disc disease, lumbar Adverse effect of drug, initial encounter Non morbid obesity due to excess calories documented in this encounter [facility] Reason for Referral Status Reason Specialty Diagnoses / Procedures Re ferred By Contact Referred To Contact New Request Diagnoses Preop testing Osteoarthritis of right knee, unspecified osteoarthritis type Procedures ECG Tonio Horan MD [address] [place] [address] Status Reason Specialty Diagnoses / Procedures Referred By Contact Referred To Contact New Request Diagnoses History of revision of total replacement of right knee joint Procedures XR KNEE RIGHT 3 VIEWS Suhas Greene, AIR CONDITIONING SUPERVISOR-PUMPER GAGER APPRENTICE [address] [place] [address] Status Reason Specialty Diagnoses / Procedures Referred By Contact Referred To Contact New Request Diagnoses History of total knee arthroplasty, right Procedures XR BONE LENGTH STUDY Tonio Horan MD [address] [id number] Status Reason Specialty Diagnoses / Procedures Referred By Contact Referred To Contact New Request Diagnoses History of total knee arthroplasty, right Procedures XR KNEE RIGHT 3 VIEWS Tonio Hroan MD [address] [place] [id number] Status Reason Specialty Diagnoses / Procedures Referred By Contact Referred To Contact Pending Review Diagnoses Left hip pain Procedures XR HIP WITH PELVIS LEFT Tonio Horan MD [address] [place] [id number] Status Reason Specialty Diagnoses / Procedures Referred By Contact Referred To Contact Pending Review Diagnoses History of total knee arthroplasty, right Procedures XR KNEE RIGHT 3 VIEWS Tonio Horan MD [address] [place] [address] Status Reason Specialty Diagnoses / Procedures Referred By Contact Referred To Contact New Request Diagnoses Hx of total hip arthroplasty, left Procedures XR HIP WITH PELVIS LEFT Suhas Greene, AIR CONDITIONING SUPERVISOR-PUMPER GAGER APPRENTICE [address] [place], [place] [id number] Status Reason Specialty Diagnoses / Procedures Referred By Contact Referred To Contact Schedule Outgoing - Transfer of Care Physical Therapy Diagnoses DDD (degenerative disc disease), lumbar Tonio Horan MD [address] [place], [place] [id number] Scheduling Instructions . Status Reason Specialty Diagnoses / Procedures Referred By Contact Referred To Contact New Request Physical Medicin e & Rehabilitation Diagnoses History of total hip arthroplasty, left Tonio Horan MD [address] [place], [place] [id number] Nelson Restrepo DO [address] [place] [address] [place] [address] [place] [address] Status Reason Specialty Diagnoses / Procedures Referred By Contact Referred To Contact New Request Diagnoses Acute pain of left knee History of total hip arthroplasty, left Procedures XR KNEE LEFT 3 VIEWS XR KNEE LEFT 4+ VIEWS Tonio Horan MD [address] [place] [phone] Status Reason Specialty Diagnoses / Procedures Referred By Contact Referred To Contact New Request Diagnoses Acute pain of left knee History of total hip arthroplasty, left Procedures XR HIP WITH PELVIS LEFT Tonio Horan MD [address] [place] [address] Instructions * Patient Instructions - Katty Shaikh RN - 09/22/2018 9:50 AM EST Formatting of this note may be different from the original. Patricia from Dr Horan's office will call you for your arrival time, 1-2 business days before your scheduled surgery. Please review your surgery checklist and bring your Guide or binder the day of surgery. Pre-Admission Testing Dept. [phone] ---Call if you have any changes in your medications, questions about your medication instructions or have additional health information you want added to your chart. No food after midnight. You may drink water or gatorade the day of surgery until the time that you leave for the hospital. Medication Sig Acetaminophen (TYLENOL ARTHRITIS PAIN PO) 650 mg, Oral, NEEDED CONTINUE, but DO NOT take the morning of surgery. Last Dose: Date Time aspirin EC [address] 81 mg, Oral, DAILY ASK ABOUT STOPPING THIS MEDICINE AT YOUR CLEARANCE APPOINTMENT. Last Dose: Date Time Coenzyme Q10 (COQ10) 100 MG Cap 100 mg, Oral STOP TAKING 7 DAYS BEFORE YOUR SURGERY Last Dose: Date Time magnesium oxide 400 (241.3 Mg) MG Tab tablet 250 mg, Oral, DAILY STOP TAKING 7 DAYS BEFORE YOUR SURGERY Last Dose: Date Time Multiple Vitamins-Minerals (CENTRUM SILVER PO) Oral STOP TAKING 7 DAYS BEFORE YOUR SURGERY Last Dose: Date Time Vitamin D3 1000 units Tab tablet 2,000 Units, Oral, DAILY STOP TAKING 7 DAYS BEFORE YOUR SURGERY Last Dose: Date Time Naproxen Sodium (ALEVE PO) Oral STOP TAKING 7 DAYS BEFORE YOUR SURGERY Last Dose: Date Time in this encounter History of Present Illness * Joya Gonzalez RN - 09/22/2018 9:30 AM EST Formatting of this note may be different from the original. PAT- ADDITIONAL QUESTIONS VISION (glasses, contacts, or other impairments) glasses HEARING AIDS OR ANY TROUBLE HEARING no DIFFICULTY SWALLOWING no DENTAL APPLIANCES OR PROBLEMS (dentures, partials, loose teeth, missing teeth, broken teeth, caps or crowns) 2 partials BETA YEN USE no STEROIDS IN THE PAST 2 YEARS Cortisone in hip, 12/2017 HISTORY OF BLOOD TRANSFUSION/REACTION no CULTURAL OR RELIGOUS BELIEFS THAT WILL AFFECT CARE no MEDICAL CLEARANCE, CARDIOLOGY CLEARANCE [place] ADDITIONAL NOTES STOP Do you SNORE loudly (louder than talking or loud enough to be heard through closed doors)? no Do you often feel TIRED, fatigued, or sleepy during daytime? yes Has anyone OBSERVED you stop breathing during your sleep? no Do you have or are you being treated for high blood PRESSURE? no BANG BMI more than 35kg/m2? no AGE over 50 years old? yes NECK circumference > 16 inches (40 cm)? no GENDER: Male? no TOTAL SCORE High risk of ANNA: Yes 5-8 Intermediate risk of ANNA: Yes 3-4 Low risk of ANNA: Yes 0- Patient has Accepted Declined the recommendation for a referral for a sleep evaluation/diagnostic sleep testing. * See DEPARTMENT OF SURGERY AND ANESTHESIA REFERRAL FOR SLEEP STUDY AND/OR PULMONARY CONSULT paper form signed by patient in chart. Reviewed instructions and medicine list. Pt given opportunity to ask questions. Pt verbalizes understanding. in this encounter* Suhas Greene APRN-GISELLA - 11/17/2018 10:15 AM EST Formatting of this note may be different from the original. HISTORY OF PRESENT ILLNESS: Radha is an established patient of [employer]. She is here today 6 weeks status post right total knee revision for aseptic loosening. She is happy with the outcomes of the operation. She is participating in outpatient physical therapy. She has completed her DVT prophylaxis. She is using Tylenol and Celebrex for pain control. She is really having minimal pain at this time and is overall pleased with the outcomes of the operation. PHYSICAL EXAMINATION: GENERAL: She is alert, oriented, and age-appropriate female. She is in no acute distress. She is pleasant and cooperative. EXTREMITIES: The right lower extremity has thigh and calf, that are soft and nontender. Normal neurovascular status. There is mild edema about the knee consistent with the postoperative nature of it. Well-healed anterior midline knee incision without drainage, dehiscence, discharge, signs or symptoms of infection. The knee has range of motion of 0 degrees of active extension and flexion of 95-100 degrees. Examination is stable to varus and valgus stress. Left lower extremity has thigh and calf, that are soft and nontender. Normal neurovascular status. DIAGNOSTIC STUDY INTERPRETATION: Three views taken today were reviewed, demonstrate a cemented revision total knee arthroplasty. It is in good position and alignment, unchanged from the previous imaging. No evidence of periprosthetic implant loosening or migration. ASSESSMENT: Six weeks status post right total knee arthroplasty. PLAN: At this point, I am pleased with the outcomes of the operation. I have given her free reign to work on her strength and mobility moving forward. I expect her to continue in physical therapy for a few more weeks which is, by her report, the plan as it was. We discussed her medications going forward. She is due to run out of her Celebrex this evening and given the amount of pain and inflammation she has in the knee after revision type surgery, I would like to continue her on an anti-inflammatory for the next month. As the Celebrex was somewhat cost prohibitive for her, I will give her a prescription for meloxicam that was sent in to her local pharmacy. We talked about this medication risks, benefits, side effects, and she is agreeable to it and is felt to be clinically warranted. All of her questions and concerns were addressed to her satisfaction. We will see her again at routinely scheduled 4-month followup visit with Dr. Horan. As always, should any new problems or questions arise, I am happy to see her sooner. ([id number]) Procedures I have reviewed the findings of the clinical technical support consultant and agree with their assessment. [facility] Nurse Established Patient Intake Room#: 5 PT reports for six week follow up for R Knee revision. PT reports she is in 0/10 right now, and is currently taking Tylenol PRN for pain. PT is also in physical therapy 3x per week. PT uses can for assistive device. Date: 11/17/2018 10:32 AM Patient: Radha Chaney MR#: [id number] : 1940 Age: 78 y.o. Referring Physician: Suhas Greene APRN-CNP Insurance: Payor: MEDICARE / Plan: MEDICARE A AND B / Product Type: *No Product type* / Chief Complaint Patient presents with Right Knee - Follow-up Visit Vitals Temp 97.3 F (36.3 C) (Temporal) Ht 1.651 m (5' 5 ) Wt 83.9 kg (185 lb) BMI 30.79 kg/m Pain Recent Labs Lab Results Component Value Date CRP <8.9 09/07/2018 Lab Results Component Value Date SEDRATE 9 09/07/2018 Lab Results Component Value Date WBC 8.4 10/06/2018 HGB 11.1 (L) 10/06/2018 HCT 33.5 (L) 10/06/2018 PLATELET 271 10/06/2018 MCV 77.3 (L) 10/06/2018 History Past Medical History: Diagnosis Date Arthritis Good exercise tolerance greater than 4 mets Past Surgical History: Procedure Laterality Date REVISION ARTHROPLASTY KNEE Right 10/04/2018 Laterality: Right; Surgeon: Tonio Horan MD; Location: [facility] ARTHROPLASTY KNEE TOTAL Right 09/07/2016 ARTHROPLASTY KNEE TOTAL Left 2016 KNEE ARTHROSCOPY Left 2014 FOOT SURGERY Left HYSTERECTOMY total RECONST EYELID FULL THICKNESS FLAP LOWER LID TOTAL 1ST STAGE ROTATOR CUFF REPAIR Bilateral done separately 2006 & 2013 Family History: Her family history includes Diabetes in her mother; Myocardial Infarction in her brother. Social History: Her reports that she has never smoked. She has never used smokeless tobacco. She reports that she does not drink alcohol or use drugs. Outpatient Medications Prior to Visit Medication Sig Dispense Refill acetaminophen 650 MG Tab CR Take 1 tablet by mouth every 4 hours as needed for Pain. 50 tablet 0 amoxicillin 500 MG Cap capsule Take 4 capsules 1 hour before procedure 8 capsule 1 Coenzyme Q10 (COQ10) 100 MG Cap Take 100 mg by mouth. docusate 100 MG Cap capsule Take 1 capsule by mouth 2 times daily. 60 capsule 0 magnesium oxide 400 (241.3 Mg) MG Tab tablet Take 250 mg by mouth daily. Multiple Vitamins-Minerals (CENTRUM SILVER PO) Take by mouth. Vitamin D3 1000 units Tab tablet Take 2,000 Units by mouth daily. aspirin EC [address] Take 1 tablet by mouth 2 times daily with meals. This medication is being prescribed to prevent blood clots. 60 tablet 0 celecoxib 200 MG Cap capsule Take 1 capsule by mouth 2 times daily with meals. 84 capsule 0 oxyCODONE 5 MG Tab tablet 5-10 mg every 4-6 hours as needed for moderate-severe pain 60 tablet 0 No facility-administered medications prior to visit. Current Outpatient Prescriptions: acetaminophen 650 MG Tab CR, Take 1 tablet by mouth every 4 hours as needed for Pain., Disp: 50 tablet, Rfl: 0 amoxicillin 500 MG Cap capsule, Take 4 capsules 1 hour before procedure, Disp: 8 capsule, Rfl: 1 Coenzyme Q10 (COQ10) 100 MG Cap, Take 100 mg by mouth., Disp: , Rfl: docusate 100 MG Cap capsule, Take 1 capsule by mouth 2 times daily., Disp: 60 capsule, Rfl: 0 magnesium oxide 400 (241.3 Mg) MG Tab tablet, Take 250 mg by mouth daily., Disp: , Rfl: Multiple Vitamins-Minerals (CENTRUM SILVER PO), Take by mouth., Disp: , Rfl: Vitamin D3 1000 units Tab tablet, Take 2,000 Units by mouth daily., Disp: , Rfl: aspirin EC [address], Take 1 tablet by mouth 2 times daily with meals. This medication is being prescribed to prevent blood clots., Disp: 60 tablet, Rfl: 0 celecoxib 200 MG Cap capsule, Take 1 capsule by mouth 2 times daily with meals., Disp: 84 capsule, Rfl: 0 oxyCODONE 5 MG Tab tablet, 5-10 mg every 4-6 hours as needed for moderate-severe pain, Disp: 60 tablet, Rfl: 0 Allergies: She has No Known Allergies. * Arnold Singletary - 11/17/2018 10:15 AM EST Formatting of this note may be different from the original. Ortho Nurse Established Patient Intake Room#: 5 PT reports for six week follow up for R Knee revision. PT reports she is in 0/10 right now, and is currently taking Tylenol PRN for pain. PT is also in physical therapy 3x per week. PT uses can for assistive device. Date: 11/17/2018 10:32 AM Patient: Radha Chaney MR#: [id number] : 1940 Age: 78 y.o. Referring Physician: Suhas Greene APRN-CNP Insurance: Payor: MEDICARE / Plan: MEDICARE A AND B / Product Type: *No Product type* / Chief Complaint Patient presents with Right Knee - Follow-up Visit Vitals Temp 97.3 F (36.3 C) (Temporal) Ht 1.651 m (5' 5 ) Wt 83.9 kg (185 lb) BMI 30.79 kg/m Pain Recent Labs Lab Results Component Value Date CRP <8.9 09/07/2018 Lab Results Component Value Date SEDRATE 9 09/07/2018 Lab Results Component Value Date WBC 8.4 10/06/2018 HGB 11.1 (L) 10/06/2018 HCT 33.5 (L) 10/06/2018 PLATELET 271 10/06/2018 MCV 77.3 (L) 10/06/2018 History Past Medical History: Diagnosis Date Arthritis Good exercise tolerance greater than 4 mets Past Surgical History: Procedure Laterality Date REVISION ARTHROPLASTY KNEE Right 10/04/2018 Laterality: Right; Surgeon: Tonio Horan MD; Location: [facility] ARTHROPLASTY KNEE TOTAL Right 09/07/2016 ARTHROPLASTY KNEE TOTAL Left 2016 KNEE ARTHROSCOPY Left 2015 FOOT SURGERY Left HYSTERECTOMY total RECONST EYELID FULL THICKNESS FLAP LOWER LID TOTAL 1ST STAGE ROTATOR CUFF REPAIR Bilateral done separately 2006 & 2013 Family History: Her family history includes Diabetes in her mother; Myocardial Infarction in her brother. Social History: Her reports that she has never smoked. She has never used smokeless tobacco. She reports that she does not drink alcohol or use drugs. Outpatient Medications Prior to Visit Medication Sig Dispense Refill acetaminophen 650 MG Tab CR Take 1 tablet by mouth every 4 hours as needed for Pain. 50 tablet 0 amoxicillin 500 MG Cap capsule Take 4 capsules 1 hour before procedure 8 capsule 1 Coenzyme Q10 (COQ10) 100 MG Cap Take 100 mg by mouth. docusate 100 MG Cap capsule Take 1 capsule by mouth 2 times daily. 60 capsule 0 magnesium oxide 400 (241.3 Mg) MG Tab tablet Take 250 mg by mouth daily. Multiple Vitamins-Minerals (CENTRUM SILVER PO) Take by mouth. Vitamin D3 1000 units Tab tablet Take 2,000 Units by mouth daily. aspirin EC [address] Take 1 tablet by mouth 2 times daily with meals. This medication is being prescribed to prevent blood clots. 60 tablet 0 celecoxib 200 MG Cap capsule Take 1 capsule by mouth 2 times daily with meals. 84 capsule 0 oxyCODONE 5 MG Tab tablet 5-10 mg every 4-6 hours as needed for moderate-severe pain 60 tablet 0 No facility-administered medications prior to visit. Current Outpatient Prescriptions: acetaminophen 650 MG Tab CR, Take 1 tablet by mouth every 4 hours as needed for Pain., Disp: 50 tablet, Rfl: 0 amoxicillin 500 MG Cap capsule, Take 4 capsules 1 hour before procedure, Disp: 8 capsule, Rfl: 1 Coenzyme Q10 (COQ10) 100 MG Cap, Take 100 mg by mouth., Disp: , Rfl: docusate 100 MG Cap capsule, Take 1 capsule by mouth 2 times daily., Disp: 60 capsule, Rfl: 0 magnesium oxide 400 (241.3 Mg) MG Tab tablet, Take 250 mg by mouth daily., Disp: , Rfl: Multiple Vitamins-Minerals (CENTRUM SILVER PO), Take by mouth., Disp: , Rfl: Vitamin D3 1000 units Tab tablet, Take 2,000 Units by mouth daily., Disp: , Rfl: aspirin EC [address], Take 1 tablet by mouth 2 times daily with meals. This medication is being prescribed to prevent blood clots., Disp: 60 tablet, Rfl: 0 celecoxib 200 MG Cap capsule, Take 1 capsule by mouth 2 times daily with meals., Disp: 84 capsule, Rfl: 0 oxyCODONE 5 MG Tab tablet, 5-10 mg every 4-6 hours as needed for moderate-severe pain, Disp: 60 tablet, Rfl: 0 Allergies: She has No Known Allergies. in this encounter* Tonio Horan MD - 01/26/2019 10:00 AM EDT Procedures HPI: Patient is here today for evaluation of their operative knee. She is status post revision total knee arthroplasty. She is about 4 months out from surgery and reports that she is doing well and is pleased with the outcome of the intervention. PHYSICAL EXAM: The bilateral lower extremities were evaluated. The operative lower extremity is soft, nontender, full and supple motion. No pain, no impingement. No instability. Incision is well healed. She has full return of motion, 0-120 degrees and a stable examination to varus and valgus stresswith normal balance throughout the arc of motion. The contralateral extremity has full motion, normal stability, no tenderness. Both extremities have normal neurovascular status. DIAGNOSTIC STUDIES/INTERPRETATION: Plain film radiographs reviewed. Three views of the operative knee show a cemented total knee arthroplasty in good position and alignment. No evidence of prostheticimplant loosening or migration. Long standing films demonstrate neutral recreation to the lateral side of the mechanical axis through the operative leg. IMPRESSION: Stable status post revision total knee arthroplasty, doing well. PLAN: I am pleased with the outcome of intervention. She has made an excellent recovery. I expect continued improvement in strength and mobility moving forward. I recommend followup at one year for repeat clinical and radiographic examination or sooner if any new symptoms develop. She will call with any questions or concerns in the meantime. Tonio Horan MD I have reviewed the findings of the clinical technical support consultant and agree with their assessment. Ortho Nurse Established Patient Intake Room#: 4 month S/P Right knee Rev, 10-04-18, denies any pain, doing great Date: 01/26/2019 9:59 AM Patient: Radha Chaney MR#: [id number] : 1940 Age: 78 y.o. Referring Physician: Tonio Horan MD Insurance: Payor: MEDICARE / Plan: MEDICARE A AND B / Product Type: *No Product type* / Chief Complaint Patient presents with Right Knee - Post Op Visit Visit Vitals Temp 96.7 F (35.9 C) (Temporal) Ht 1.651 m (5' 5 ) Wt 83.9 kg (185 lb) BMI 30.79 kg/m Pain Presence of Pain: denies pain/discomfort (01/26/19 0957) Recent Labs Lab Results Component Value Date CRP <8.9 09/07/2018 Lab Results Component Value Date SEDRATE 9 09/07/2018 Lab Results Component Value Date WBC 8.4 10/06/2018 HGB 11.1 (L) 10/06/2018 HCT 33.5 (L) 10/06/2018 PLATELET 271 10/06/2018 MCV 77.3 (L) 10/06/2018 History Past Medical History: Diagnosis Date Arthritis Good exercise tolerance greater than 4 mets Past Surgical History: Procedure Laterality Date REVISION ARTHROPLASTY KNEE Right 10/04/2018 Laterality: Right; Surgeon: Tonio Horan MD; Location: [facility] ARTHROPLASTY KNEE TOTAL Right 09/07/2016 ARTHROPLASTY KNEE TOTAL Left 2016 KNEE ARTHROSCOPY Left 2014 FOOT SURGERY Left HYSTERECTOMY total RECONST EYELID FULL THICKNESS FLAP LOWER LID TOTAL 1ST STAGE ROTATOR CUFF REPAIR Bilateral done separately 2006 & 2013 Family History: Her family history includes Diabetes in her mother; Myocardial Infarction in her brother. Social History: Her reports that she has never smoked. She has never used smokeless tobacco. She reports that she does not drink alcohol or use drugs. Outpatient Medications Prior to Visit Medication Sig Dispense Refill amoxicillin 500 MG Cap capsule Take 4 capsules 1 hour before procedure 8 capsule 1 aspirin EC [address] Take 1 tablet by mouth 2 times daily with meals. This medication is being prescribed to prevent blood clots. 60 tablet 0 celecoxib 200 MG Cap capsule Take 200 mg by mouth 2 times daily. Coenzyme Q10 (COQ10) 100 MG Cap Take 100 mg by mouth. magnesium oxide 400 (241.3 Mg) MG Tab tablet Take 250 mg by mouth daily. Multiple Vitamins-Minerals (CENTRUM SILVER PO) Take by mouth. Vitamin D3 1000 units Tab tablet Take 2,000 Units by mouth daily. acetaminophen 650 MG Tab CR Take 1 tablet by mouth every 4 hours as needed for Pain. (Patient not taking: Reported on 01/26/2019) 50 tablet 0 docusate 100 MG Cap capsule Take 1 capsule by mouth 2 times daily. (Patient not taking: Reported on01/26/2019) 60 capsule 0 meloxicam 15 MG Tab tablet Take 1 tablet by mouth daily. Take with food. (Patient not taking: Reported on 01/26/2019) 30 tablet 0 oxyCODONE 5 MG Tab tablet 5-10 mg every 4-6 hours as needed for moderate-severe pain 60 tablet 0 No facility-administered medications prior to visit. Current Outpatient Medications: amoxicillin 500 MG Cap capsule, Take 4 capsules 1 hour before procedure, Disp: 8 capsule, Rfl: 1 aspirin EC [address], Take 1 tablet by mouth 2 times daily with meals. This medication is being prescribed to prevent blood clots., Disp: 60 tablet, Rfl: 0 celecoxib 200 MG Cap capsule, Take 200 mg by mouth 2 times daily., Disp: , Rfl: Coenzyme Q10 (COQ10) 100 MG Cap, Take 100 mg by mouth., Disp: , Rfl: magnesium oxide 400 (241.3 Mg) MG Tab tablet, Take 250 mg by mouth daily., Disp: , Rfl: Multiple Vitamins-Minerals (CENTRUM SILVER PO), Take by mouth., Disp: , Rfl: Vitamin D3 1000 units Tab tablet, Take 2,000 Units by mouth daily., Disp: , Rfl: acetaminophen 650 MG Tab CR, Take 1 tablet by mouth every 4 hours as needed for Pain. (Patient not taking: Reported on 01/26/2019), Disp: 50 tablet, Rfl: 0 docusate 100 MG Cap capsule, Take 1 capsule by mouth 2 times daily. (Patient not taking: Reported on 01/26/2019), Disp: 60 capsule, Rfl: 0 meloxicam 15 MG Tab tablet, Take 1 tablet by mouth daily. Take with food. (Patient not taking: Reported on 01/26/2019), Disp: 30 tablet, Rfl: 0 oxyCODONE 5 MG Tab tablet, 5-10 mg every 4-6 hours as needed for moderate-severe pain, Disp: 60 tablet, Rfl: 0 Allergies: She has No Known Allergies. * ParagManuel LPN - 01/26/2019 10:00 AM EDT Ortho Nurse Established Patient Intake Room#: 4 month S/P Right knee Rev, 10-04-18, denies any pain, doing great Date: 01/26/2019 9:59 AM Patient: Radha Chaney MR#: [id number] : 1940 Age: 78 y.o. Referring Physician: Tonio Horan MD Insurance: Payor: MEDICARE / Plan: MEDICARE A AND B / Product Type: *No Product type* / Chief Complaint Patient presents with Right Knee - Post Op Visit Visit Vitals Temp 96.7 F (35.9 C) (Temporal) Ht 1.651 m (5' 5 ) Wt 83.9 kg (185 lb) BMI 30.79 kg/m Pain Presence of Pain: denies pain/discomfort (01/26/19 0957) Recent Labs Lab Results Component Value Date CRP <8.9 09/07/2018 Lab Results Component Value Date SEDRATE 9 09/07/2018 Lab Results Component Value Date WBC 8.4 10/06/2018 HGB 11.1 (L) 10/06/2018 HCT 33.5 (L) 10/06/2018 PLATELET 271 10/06/2018 MCV 77.3 (L) 10/06/2018 History Past Medical History: Diagnosis Date Arthritis Good exercise tolerance greater than 4 mets Past Surgical History: Procedure Laterality Date REVISION ARTHROPLASTY KNEE Right 10/04/2018 Laterality: Right; Surgeon: Tonio Horan MD; Location: [facility] ARTHROPLASTY KNEE TOTAL Right 09/07/2016 ARTHROPLASTY KNEE TOTAL Left 2016 KNEE ARTHROSCOPY Left 2015 FOOT SURGERY Left HYSTERECTOMY total RECONST EYELID FULL THICKNESS FLAP LOWER LID TOTAL 1ST STAGE ROTATOR CUFF REPAIR Bilateral done separately 2006 & 2013 Family History: Her family history includes Diabetes in her mother; Myocardial Infarction in her brother. Social History: Her reports that she has never smoked. She has never used smokeless tobacco. She reports that she does not drink alcohol or use drugs. Outpatient Medications Prior to Visit Medication Sig Dispense Refill amoxicillin 500 MG Cap capsule Take 4 capsules 1 hour before procedure 8 capsule 1 aspirin EC [address] Take 1 tablet by mouth 2 times daily with meals. This medication is being prescribed to prevent blood clots. 60 tablet 0 celecoxib 200 MG Cap capsule Take 200 mg by mouth 2 times daily. Coenzyme Q10 (COQ10) 100 MG Cap Take 100 mg by mouth. magnesium oxide 400 (241.3 Mg) MG Tab tablet Take 250 mg by mouth daily. Multiple Vitamins-Minerals (CENTRUM SILVER PO) Take by mouth. Vitamin D3 1000 units Tab tablet Take 2,000 Units by mouth daily. acetaminophen 650 MG Tab CR Take 1 tablet by mouth every 4 hours as needed for Pain. (Patient not taking: Reported on 01/26/2019) 50 tablet 0 docusate 100 MG Cap capsule Take 1 capsule by mouth 2 times daily. (Patient not taking: Reported on01/26/2019) 60 capsule 0 meloxicam 15 MG Tab tablet Take 1 tablet by mouth daily. Take with food. (Patient not taking: Reported on 01/26/2019) 30 tablet 0 oxyCODONE 5 MG Tab tablet 5-10 mg every 4-6 hours as needed for moderate-severe pain 60 tablet 0 No facility-administered medications prior to visit. Current Outpatient Medications: amoxicillin 500 MG Cap capsule, Take 4 capsules 1 hour before procedure, Disp: 8 capsule, Rfl: 1 aspirin EC [address], Take 1 tablet by mouth 2 times daily with meals. This medication is being prescribed to prevent blood clots., Disp: 60 tablet, Rfl: 0 celecoxib 200 MG Cap capsule, Take 200 mg by mouth 2 times daily., Disp: , Rfl: Coenzyme Q10 (COQ10) 100 MG Cap, Take 100 mg by mouth., Disp: , Rfl: magnesium oxide 400 (241.3 Mg) MG Tab tablet, Take 250 mg by mouth daily., Disp: , Rfl: Multiple Vitamins-Minerals (CENTRUM SILVER PO), Take by mouth., Disp: , Rfl: Vitamin D3 1000 units Tab tablet, Take 2,000 Units by mouth daily., Disp: , Rfl: acetaminophen 650 MG Tab CR, Take 1 tablet by mouth every 4 hours as needed for Pain. (Patient not taking: Reported on 01/26/2019), Disp: 50 tablet, Rfl: 0 docusate 100 MG Cap capsule, Take 1 capsule by mouth 2 times daily. (Patient not taking: Reported on 01/26/2019), Disp: 60 capsule, Rfl: 0 meloxicam 15 MG Tab tablet, Take 1 tablet by mouth daily. Take with food. (Patient not taking: Reported on 01/26/2019), Disp: 30 tablet, Rfl: 0 oxyCODONE 5 MG Tab tablet, 5-10 mg every 4-6 hours as needed for moderate-severe pain, Disp: 60 tablet, Rfl: 0 Allergies: She has No Known Allergies. documented in this encounter* Tonio Hroan MD - 09/28/2019 3:10 PM EST SUBJECTIVE: Radha is here today for followup of her right knee, also for evaluation of left hip. Her primary complaint is pain in the left hip, the more she is on it, the more it hurts. Radiates locally. She has stiffness, instability, progressive weakness with gait and length. She is status post revision of right knee arthroplasty. She also reports that she has been doing well. She has not had any problems with that. She has had in the past for her left hip, medications including prescription of anti- inflammatories and intra-articular injections by Dr. Larsen as well as physical therapy. She is interested in arthroplasty. She is referred here today for consideration of that. OBJECTIVE: GENERAL: This is an alert, oriented, and age-appropriate female. She is in no distress. Pleasant and cooperative. EXTREMITIES: Her upper extremities have no gross deformity. Normal stability. 5/5 motor, intact sensation. Lower extremities have no gross deformity. Normal stability. 5/5 motor, intact sensation, normal coordination. Left hip has painful range of motion. She has flexion to 90. No internal rotation. External rotation to 5. She has weakness with hip abduction and flexion around 4/5 strength. She has a positive Trendelenburg gait with antalgia. Right hip has full and supple motion. No pain. No impingement. Right knee has full motion. No pain. Normal neurovascular status otherwise. IMAGING: Plain film radiographs reviewed. Multiple views of the right knee demonstrated revision arthroplasty, it is in stable position and alignment. No evidence of prosthetic implant loosening or migration. Multiple views of the left hip demonstrate severe end-stage arthritis with loss of joint space, subchondral sclerosis, osteophyte formation, [id number] contact. X-rays of the pelvis were also taken for presurgical planning given the patient's history of spinal disease. IMPRESSION: 1. 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 2. Status post revision right knee arthroplasty. PLAN OF CARE: DICTATION ENDS HERE ([id number]) We discussed in great detail the risks, benefits, and alternatives to surgical intervention and anterolateral left total hip replacement with possible abductor repair. Radha understands that this isneither a life nor limb-threatening situation, and that they can certainly continue to live with this problem. The patient understands that the potential benefits are reduced pain and improved function. The patient also understands that the risks include, but are not limited to: bleeding, infection, neurovascular injury including foot drop or paralysis, dislocation, component failure, implant loosening, leg length inequality, ligament or tendon disruption, fracture, stiffness, chronic pain, chronic limp, chronic disability, need for further surgery, blood clots in the extremities or lungs, stroke, heart attack, loss of limb, and ultimately loss of life. Despite these risks, the patient would like to proceed with surgical planning. Today, we will initiate the pre-surgical process includingnasal MRSA screening, scheduling an appointment for [facility] [place] and the potential surgical date, and reviewing and signing the consent forms. I have reviewed the findings of the clinical technical support consultant and agree with their assessment. Tonio Horan MD Ortho Nurse Patient Intake Room#: 3--OV today for 1 year post-op check of right TKA. This is doing fine and has zero pain in the knee. She has complaints today of left hip pain . She has had a injection in this hip in the pastby Dr. Larsen . This injection did help but now pain pain is back she was also treated for backpain. She also had been evaluated by PT in the past. Pain for hip today is 2-6. Date: 09/28/2019 3:33 PM Patient: Radha Chaney MR#: [id number] : 1940 Age: 79 y.o. Referring Physician: Suhas Greene APRN-CNP Insurance: Payor: MEDICARE / Plan: MEDICARE A AND B / Product Type: *No Product type* / Chief Complaint Patient presents with Left Hip - Pain Right Knee - Post Op Visit Visit Vitals Temp 98 F (36.7 C) (Temporal) Ht 1.651 m (5' 5 ) Wt 88.5 kg (195 lb) BMI 32.45 kg/m Pain Presence of Pain: complains of pain/discomfort Select Pain Scale: DVPRS (Defense and Veterans Pain Rating Scale) (Adult- Cognitively Intact) Select Pain Scale: DVPRS (Defense and Veterans Pain Rating Scale) (Adult- Cognitively Intact) Recent Labs Lab Results Component Value Date CRP <8.9 09/07/2018 Lab Results Component Value Date SEDRATE 9 09/07/2018 Lab Results Component Value Date WBC 8.4 10/06/2018 HGB 11.1 (L) 10/06/2018 HCT 33.5 (L) 10/06/2018 PLATELET 271 10/06/2018 MCV 77.3 (L) 10/06/2018 History Past Medical History: Diagnosis Date Arthritis Good exercise tolerance greater than 4 mets Past Surgical History: Procedure Laterality Date REVISION ARTHROPLASTY KNEE Right 10/04/2018 Laterality: Right; Surgeon: Tonio Horan MD; Location: [facility] ARTHROPLASTY KNEE TOTAL Right 09/07/2016 ARTHROPLASTY KNEE TOTAL Left 2016 KNEE ARTHROSCOPY Left 2015 FOOT SURGERY Left HYSTERECTOMY total RECONST EYELID FULL THICKNESS FLAP LOWER LID TOTAL 1ST STAGE ROTATOR CUFF REPAIR Bilateral done separately 2006 & 2013 Family History: Her family history includes Diabetes in her mother; Myocardial Infarction in her brother. Social History: Her reports that she has never smoked. She has never used smokeless tobacco. She reports that she does not drink alcohol or use drugs. Additional Social History Y N Notes Do you live alone? [] [x] Who lives with you: Do you have children? [x] [] How many: 2 Do you currently work? [] [x] What type of work do you do: Do you have stairs in the home? [] [x] How many do you have to climb to enter your home: 2 What services do you currently receive at home? [] [x] Name: Do you have transportation to go to outpatient therapy if needed? [x] [] What Equipment do you have at home? [x] [] [x]Walker, []Crutches, []Commode Chair, [x]Shower []Chair, [x]cane, []bracing Are you followed by a vegetable tester? [] [x] Name: Are you followed by pain management? [] [x] Name: Are you followed by any other specialists? [] [x] Name: Outpatient Medications Prior to Visit Medication Sig Dispense Refill amoxicillin 500 MG Cap capsule Take 4 capsules 1 hour before procedure 8 capsule 1 aspirin EC [address] Take 81 mg by mouth daily. CALCIUM CITRATE PO Take 600 mg by mouth every 12 hours. Coenzyme Q10 (COQ10) 100 MG Cap Take 100 mg by mouth. magnesium oxide 400 (241.3 Mg) MG Tab tablet Take 250 mg by mouth daily. Multiple Vitamins-Minerals (CENTRUM SILVER PO) Take by mouth. Vitamin D3 1000 units Tab tablet Take 2,000 Units by mouth daily. acetaminophen 650 MG Tab CR Take 1 tablet by mouth every 4 hours as needed for Pain. (Patient not taking: Reported on 01/26/2019) 50 tablet 0 aspirin EC [address] Take 1 tablet by mouth 2 times daily with meals. This medication is being prescribed to prevent blood clots. 60 tablet 0 celecoxib 200 MG Cap capsule Take 200 mg by mouth 2 times daily. docusate 100 MG Cap capsule Take 1 capsule by mouth 2 times daily. (Patient not taking: Reported on01/26/2019) 60 capsule 0 gabapentin 100 MG Cap capsule meloxicam 15 MG Tab tablet Take 1 tablet by mouth daily. Take with food. (Patient not taking: Reported on 01/26/2019) 30 tablet 0 oxyCODONE 5 MG Tab tablet 5-10 mg every 4-6 hours as needed for moderate-severe pain 60 tablet 0 No facility-administered medications prior to visit. Allergies: She has No Known Allergies. Y N Are you allergic to any metals? [] [x] If yes, what metals: Review of Systems System Y N Symptoms Constitutional [] [x] Weight Loss [] [x] Weight Gain [] [x] Chronic Fever [] [x] Insomnia Eyes [] [x] Resent Vision Change [] [x] Cataracts [] [x] Glaucoma [] [x] Any Hx of Metal Fragments in the Eye ENT [] [x] Loss of hearing [] [x] Hearing Aids [] [x] Seasonal Allergies [] [x] Dental Issues Cardiovascular [] [x] Chest Pain [] [x] Angina [] [x] Stent [] [x] Hypertension [] [x] Heart Murmur [] [x] Irregular Pulse [] [x] Pacemaker [] [x] Palpitations [] [x] High cholesteral Respiratory [] [x] Wheezing [] [x] Shortness of Breath [] [x] Pneumonia [] [x] Bronchitis [] [x] Sleep Apnea [] [x] COPD [] [x] Date/ LOC of last CXR: Gastrointestinal [] [x] Heartburn [] [x] Indigestion [] [x] Constipation [] [x] Ulcer [] [x] GI Stomach Bleed [] [x] Diarrhea [] [x] Colon Cancer [] [x] Acid Reflux [] [x] Blood in Stools Musculoskeletal [x] [] Arthritis [] [x] Muscle Weakness [x] [] Joint Pain [x] [] Back Pain [] [x] Fibromyalgia [] [x] Bone Infection [] [x] Swelling Multiple Joints [] [x] Reflex Sympathetic Dystrophy Skin [] [x] Chronic Rash [] [x] Ulcers [] [x] Eczema [] [x] Psoriasis [] [x] Skin Cancer [] [x] Melanoma Neurologic [] [x] Numbness [] [x] Weakness or loss of sensation in arms or legs [] [x] Leg Pain / Sciatica [] [x] Headaches [] [x] Loss of bowel or bladder control Psychiatric [] [x] Anxiety [] [x] Claustrophobia [] [x] Other Psychiatric Problems Hematologic [] [x] Easy Bruising [] [x] Easy Bleeding [] [x] Blood Transfusion Date: Endocrine [] [x] Hypothyroid [] [x] Hyperthyroid [] [x] Hot Flashes [] [x] Hormone Replacement [] [x] Prednisone Use Does pt have dentures? Yes/ partials upper and lower Procedures * Elaine Nguyễn LPN - 09/28/2019 3:10 PM EST Ortho Nurse Patient Intake Room#: 3--OV today for 1 year post-op check of right TKA. This is doing fine and has zero pain in the knee. She has complaints today of left hip pain . She has had a injection in this hip in the pastby Dr. Larsen . This injection did help but now pain pain is back she was also treated for backpain. She also had been evaluated by PT in the past. Pain for hip today is 2-6. Date: 09/28/2019 3:33 PM Patient: Radha Chaney MR#: [id number] : 1940 Age: 79 y.o. Referring Physician: Suhas Greene APRN-CNP Insurance: Payor: MEDICARE / Plan: MEDICARE A AND B / Product Type: *No Product type* / Chief Complaint Patient presents with Left Hip - Pain Right Knee - Post Op Visit Visit Vitals Temp 98 F (36.7 C) (Temporal) Ht 1.651 m (5' 5 ) Wt 88.5 kg (195 lb) BMI 32.45 kg/m Pain Presence of Pain: complains of pain/discomfort Select Pain Scale: DVPRS (Defense and Veterans Pain Rating Scale) (Adult- Cognitively Intact) Select Pain Scale: DVPRS (Defense and Veterans Pain Rating Scale) (Adult- Cognitively Intact) Recent Labs Lab Results Component Value Date CRP <8.9 09/07/2018 Lab Results Component Value Date SEDRATE 9 09/07/2018 Lab Results Component Value Date WBC 8.4 10/06/2018 HGB 11.1 (L) 10/06/2018 HCT 33.5 (L) 10/06/2018 PLATELET 271 10/06/2018 MCV 77.3 (L) 10/06/2018 History Past Medical History: Diagnosis Date Arthritis Good exercise tolerance greater than 4 mets Past Surgical History: Procedure Laterality Date REVISION ARTHROPLASTY KNEE Right 10/04/2018 Laterality: Right; Surgeon: Tonio Horan MD; Location: [facility] ARTHROPLASTY KNEE TOTAL Right 09/07/2016 ARTHROPLASTY KNEE TOTAL Left 2016 KNEE ARTHROSCOPY Left 2015 FOOT SURGERY Left HYSTERECTOMY total RECONST EYELID FULL THICKNESS FLAP LOWER LID TOTAL 1ST STAGE ROTATOR CUFF REPAIR Bilateral done separately 2006 & 2013 Family History: Her family history includes Diabetes in her mother; Myocardial Infarction in her brother. Social History: Her reports that she has never smoked. She has never used smokeless tobacco. She reports that she does not drink alcohol or use drugs. Additional Social History Y N Notes Do you live alone? [] [x] Who lives with you: Do you have children? [x] [] How many: 2 Do you currently work? [] [x] What type of work do you do: Do you have stairs in the home? [] [x] How many do you have to climb to enter your home: 2 What services do you currently receive at home? [] [x] Name: Do you have transportation to go to outpatient therapy if needed? [x] [] What Equipment do you have at home? [x] [] [x]Walker, []Crutches, []Commode Chair, [x]Shower []Chair, [x]cane, []bracing Are you followed by a vegetable tester? [] [x] Name: Are you followed by pain management? [] [x] Name: Are you followed by any other specialists? [] [x] Name: Outpatient Medications Prior to Visit Medication Sig Dispense Refill amoxicillin 500 MG Cap capsule Take 4 capsules 1 hour before procedure 8 capsule 1 aspirin EC [address] Take 81 mg by mouth daily. CALCIUM CITRATE PO Take 600 mg by mouth every 12 hours. Coenzyme Q10 (COQ10) 100 MG Cap Take 100 mg by mouth. magnesium oxide 400 (241.3 Mg) MG Tab tablet Take 250 mg by mouth daily. Multiple Vitamins-Minerals (CENTRUM SILVER PO) Take by mouth. Vitamin D3 1000 units Tab tablet Take 2,000 Units by mouth daily. acetaminophen 650 MG Tab CR Take 1 tablet by mouth every 4 hours as needed for Pain. (Patient not taking: Reported on 01/26/2019) 50 tablet 0 aspirin EC [address] Take 1 tablet by mouth 2 times daily with meals. This medication is being prescribed to prevent blood clots. 60 tablet 0 celecoxib 200 MG Cap capsule Take 200 mg by mouth 2 times daily. docusate 100 MG Cap capsule Take 1 capsule by mouth 2 times daily. (Patient not taking: Reported on01/26/2019) 60 capsule 0 gabapentin 100 MG Cap capsule meloxicam 15 MG Tab tablet Take 1 tablet by mouth daily. Take with food. (Patient not taking: Reported on 01/26/2019) 30 tablet 0 oxyCODONE 5 MG Tab tablet 5-10 mg every 4-6 hours as needed for moderate-severe pain 60 tablet 0 No facility-administered medications prior to visit. Allergies: She has No Known Allergies. Y N Are you allergic to any metals? [] [x] If yes, what metals: Review of Systems System Y N Symptoms Constitutional [] [x] Weight Loss [] [x] Weight Gain [] [x] Chronic Fever [] [x] Insomnia Eyes [] [x] Resent Vision Change [] [x] Cataracts [] [x] Glaucoma [] [x] Any Hx of Metal Fragments in the Eye ENT [] [x] Loss of hearing [] [x] Hearing Aids [] [x] Seasonal Allergies [] [x] Dental Issues Cardiovascular [] [x] Chest Pain [] [x] Angina [] [x] Stent [] [x] Hypertension [] [x] Heart Murmur [] [x] Irregular Pulse [] [x] Pacemaker [] [x] Palpitations [] [x] High cholesteral Respiratory [] [x] Wheezing [] [x] Shortness of Breath [] [x] Pneumonia [] [x] Bronchitis [] [x] Sleep Apnea [] [x] COPD [] [x] Date/ LOC of last CXR: Gastrointestinal [] [x] Heartburn [] [x] Indigestion [] [x] Constipation [] [x] Ulcer [] [x] GI Stomach Bleed [] [x] Diarrhea [] [x] Colon Cancer [] [x] Acid Reflux [] [x] Blood in Stools Musculoskeletal [x] [] Arthritis [] [x] Muscle Weakness [x] [] Joint Pain [x] [] Back Pain [] [x] Fibromyalgia [] [x] Bone Infection [] [x] Swelling Multiple Joints [] [x] Reflex Sympathetic Dystrophy Skin [] [x] Chronic Rash [] [x] Ulcers [] [x] Eczema [] [x] Psoriasis [] [x] Skin Cancer [] [x] Melanoma Neurologic [] [x] Numbness [] [x] Weakness or loss of sensation in arms or legs [] [x] Leg Pain / Sciatica [] [x] Headaches [] [x] Loss of bowel or bladder control Psychiatric [] [x] Anxiety [] [x] Claustrophobia [] [x] Other Psychiatric Problems Hematologic [] [x] Easy Bruising [] [x] Easy Bleeding [] [x] Blood Transfusion Date: Endocrine [] [x] Hypothyroid [] [x] Hyperthyroid [] [x] Hot Flashes [] [x] Hormone Replacement [] [x] Prednisone Use Does pt have dentures? Yes/ partials upper and lower documented in this encounter* Genie Cason OT - 11/30/2019 3:19 PM EST 11/30/19 1308 Subjective RN Approved Intervention as tolerated Existing Precautions/Restrictions fall;hip;weight bearing Subjective Reports Pt sitting up in recliner chair agreeable to session Cognitive Status Examination Orientation Status (Cognition) oriented x 4 Level of Consciousness alert Able to Follow Commands (Communication) WFL Personal Safety and Judgment intact General Pain Documentation (Adult, OB, Peds) Presence of Pain complains of pain/discomfort Pain Location hip, left Pain Management Interventions cold application Select Pain Scale (2/10) Transfer Skill: Sit To Stand, Rehab Eval Leon (Sit-Stand Transfers) minimum assist (75% patient effort) Physical Assist/Nonphysical Assist: Sit/Stand 1 person assist Weight-Bearing Restrictions: Sit/Stand toe touch weight-bearing Assistive Device For Transfer: Sit/Stand 2 wheeled walker Bathing Level of Leon minimum assist (75% patients effort) Physical Assist/Nonphysical Assist 1 person assist Upper Body Dressing Level of Leon independent Physical Assist/Nonphysical Assist set-up required Lower Body Dressing Level of Leon minimum assist (75% patients effort) Physical Assist/Nonphysical Assist 1 person assist Toileting Level of Leon minimum assist (75% patients effort) Physical Assist/Nonphysical Assist 1 person assist Assessment Assessment Narrative Pt complete total body sponge bathing and dressing tasks requiring min assist for YOEL hose and shorts management at times utilizing AE, patient complete functional mobility into bathroom with education on standing hygiene to reach posterior if needed, patient instructed to use call light when finished. at beginning of session education on possibly utilizing tub transfer benchfor tub shower patient reports understanding Clinical Impression Patient Instruction bathing, dressing, transfer, AE training Therapist Information License # [id number] * Lauren Anthony APRN-PUMPER GAGER APPRENTICE - 11/30/2019 10:14 AM EST DAILY PROGRESS NOTE Date of Evaluation: 11/30/19 10:14 AM [facility] LOS: 2 days SUBJECTIVE: Patient seen and examined. Chart, medications, labs all reviewed. Patient denies all reports of CALDERON, BV, LH, Dizziness, Fever, Chills, Nausea, Vomiting, Diarrhea, or Pain. I feel good today Vital Signs: Blood pressure 121/66, pulse 68, temperature 97.9 F (36.6 C), temperature source Oral,resp. rate 16, height 1.651 m (5' 5 ), weight 91.2 kg (201 lb 1 oz), SpO2 95 %. O2 Sat (%): 95 % (11/30 719) O2 Device: room air (11/30 719) Intake and Output: Intake/Output Summary (Last 24 hours) at 11/30/2019 1014 Last data filed at 11/30/2019 0900 Gross per 24 hour Intake 1257 ml Output Net 1257 ml Daily Weight: Wt Readings from Last 3 Encounters: 11/30/19 91.2 kg (201 lb 1 oz) 11/06/19 88.5 kg (195 lb) 09/28/19 88.5 kg (195 lb) PHYSICAL EXAM: General: Patient resting comfortably. Awake. No acute distress. Cardiovascular: Regular rate and rhythm, without murmurs, rubs, or gallops. Respiratory: Bilateral Upper and Lower Lobes without wheezes, rales, or rhonchi Abdomen: Soft, rounded, non-tender. Bowel sounds present x4 quadrants. No rebound. No organomegaly or masses noted upon deep palpation. Extremities: No edema, clubbing or cyanosis, pulses palpable 2+ distally. Skin: Warm, Dry, Intact. Diagnostics: Lab Results Component Value Date WBC 8.8 11/30/2019 HGB 12.5 11/30/2019 HCT 37.6 11/30/2019 PLATELET 268 11/30/2019 MCV 83.7 11/30/2019 @LASTMAGNESIUM(1D,2)@ Lab Results Component Value Date INR 0.98 11/06/2019 INR 0.92 09/22/2018 PT 12.9 11/06/2019 PT 12.3 09/22/2018 Lab Results Component Value Date CREATSERUM 0.90 11/30/2019 BUN 21 (H) 11/30/2019 SODIUM 141 11/30/2019 POTASSIUM 4.0 11/30/2019 CHLORIDE 111 (H) 11/30/2019 CO2 23 11/30/2019 Lab Results Component Value Date SPGRVTYUR 1.020 11/06/2019 GLUCOSEURINE NEGATIVE 11/06/2019 BILIRUBINURI NEGATIVE 11/06/2019 KETONESURINE NEGATIVE 11/06/2019 NITRITESURIN NEGATIVE 11/06/2019 LEUKOCESTUR NEGATIVE 11/06/2019 ASSESSMENT & PLAN: Principal Problem: Primary osteoarthritis of left hip S/P left total hip arthroplasty/muscle repair POD#2 PT OT [place] Active Problems: GERD (gastroesophageal reflux disease) PPI Benign hypertension Continue outpatient therapy Add prn for sbp >160 Dvt/gip- ppi and asa Full Code Associated attestation - Shola Cornejo DO - 11/30/2019 2:34 PM EST Patient seen and examined independently. Meds, labs, and radiographs reviewed. Lungs clear and heart tones regular on exam. I agree with assessments and plan of care. * Suhas Greene, CR-PUMPER GAGER APPRENTICE - 11/30/2019 8:12 AM EST Total Joint Progress Note P O DAY # 2 PROCEDURE: l boone al SUBJECTIVE: No new symptoms or complaints PAIN RATIN/10 OBJECTIVE: Lab Results Component Value Date WBC 8.8 11/30/2019 HGB 12.5 11/30/2019 HGB 12.2 11/29/2019 HGB 14.3 11/06/2019 HCT 37.6 11/30/2019 HCT 36.4 11/29/2019 HCT 41.4 11/06/2019 PLATELET 268 11/30/2019 MCV 83.7 11/30/2019 Lab Results Component Value Date SODIUM 141 11/30/2019 POTASSIUM 4.0 11/30/2019 CHLORIDE 111 (H) 11/30/2019 CO2 23 11/30/2019 BUN 21 (H) 11/30/2019 BUN 18 11/29/2019 BUN 20 11/06/2019 CREATSERUM 0.90 11/30/2019 CREATSERUM 0.87 11/29/2019 CREATSERUM 0.79 11/06/2019 GLUCOSE 105 (H) 11/30/2019 Vital Signs: Vitals: 11/30/19 0720 BP: 121/66 Pulse: 68 Resp: 16 Temp: 97.9 F (36.6 C) Patient is alert and oriented times three. Abdomen: Soft, non-tender without organomegaly and bowel sounds are active Vascular: Dorsalis pedis/posterior tibial pulses RIGHT/LEFT/BILATERAL: Bilateral NORMAL / ABNORMAL (RESULT): Normal Neuro: Intact/deficit: intact to light touch Wound Appearance: DESCRIPTION; WOUND: incision Erythema: PRESENT OR ABSENT: absent Drainage none Dressing: Clean/dry/intact DVT Screening Exam: Calves soft/non-tender Yoel hose: PRESENT OR ABSENT: present Foot pumps/ SCD's: PRESENT OR ABSENT: present Hemovac Drain Output: na mL/last shift Physical Therapy: Gait Distance: 75 Feet: ASSESSMENT: sp l boone al pod 2 PLAN: 1. PT/OT 2. DVT prophylaxis 3. Discharge planning DISCHARGE PLANNING: plans; post hospital: SEE SS NOTES * Selena Rene, PT - 11/29/2019 2:53 PM EST 11/29/19 1345 Subjective RN Approved Intervention as tolerated Existing Precautions/Restrictions fall;hip;weight bearing (TTWB, global hip L, no active abduction L) Subjective Reports Pt seated in recliner, agreeable to therapy. Cognitive Status Examination Orientation Status (Cognition) oriented x 4 Level of Consciousness alert Able to Follow Commands (Communication) WFL Personal Safety and Judgment intact General Pain Documentation (Adult, OB, Peds) Presence of Pain denies pain/discomfort Select Pain Scale DVPRS (Defense and Veterans Pain Rating Scale) (Adult- Cognitively Intact) DVPRS (Defense and Veterans Pain Rating Scale) DVPRS: Rest 0- no pain DVPRS: Activity 0- no pain Objective Therapeutic Interventions Pt seated in recliner and agreeable to therapy. Pt ambulates x75 ft with FWW and CGA for safety with step to TTWB pattern and no cues for sequencing. Pt instructed in LE exercises 20x ea including LAQ, ankle pumps, quad sets, glute sets, SAQ. Pt instructed in supine to sitwith SBA for safety using leg environmental manager. Pt instructed in small stair to simulate home environment. Ptable to ascend/descend single stair with CGA for safety. Pt required seated rest break. Therapist facilitated gait training x75 ft with ttwb and step to pattern with CGA for safety. Pt required SBA for toilet transfer. Pt able to stand x2 min for precious care and donning/doffing clothing with single Ue assist. Pt returned to recliner with feet elevated and call light in reach. Transfer Skill: Sit To Stand, Rehab Eval Leon (Sit-Stand Transfers) minimum assist (75% patient effort) Physical Assist/Nonphysical Assist: Sit/Stand 1 person assist Weight-Bearing Restrictions: Sit/Stand toe touch weight-bearing Assistive Device For Transfer: Sit/Stand 2 wheeled walker Stair Negotiation Level of Leon: Stair Negotiation contact guard Physical Assist/Nonphysical Assist: Stair Negotiation 1 person assist Weight-Bearing Restrictions: Stair Negotiation toe touch weight-bearing Assistive Device for Transfer: Stair Negotiation wheeled walker Number of stairs 1 (6 ) Stair Railings no rail Plan Plan for next visit Progress HEP, strengthening and functional mobility as tolerated Selena Rene PT * Genie Cason, OT - 11/29/2019 2:36 PM EST 11/29/19 1225 Subjective RN Approved Intervention as tolerated Existing Precautions/Restrictions fall;hip;weight bearing (TTWB, global hip prec, no active hip abduction) Subjective Reports Pt sitting up in recliner chair finished with lunch agreeable to session Cognitive Status Examination Orientation Status (Cognition) oriented x 4 Level of Consciousness alert Able to Follow Commands (Communication) WFL Personal Safety and Judgment intact General Pain Documentation (Adult, OB, Peds) Presence of Pain denies pain/discomfort Transfer Skill: Sit To Stand, Rehab Eval Leon (Sit-Stand Transfers) minimum assist (75% patient effort) Physical Assist/Nonphysical Assist: Sit/Stand 1 person assist Weight-Bearing Restrictions: Sit/Stand toe touch weight-bearing Assistive Device For Transfer: Sit/Stand 2 wheeled walker Bathing Level of Leon moderate assist (50% patients effort) Physical Assist/Nonphysical Assist 1 person assist Grooming Leon Level (Grooming) contact guard assist;wash face, hands;oral care regimen;hair care, combing/brushing Upper Body Dressing Level of Leon independent Physical Assist/Nonphysical Assist set-up required Lower Body Dressing Level of Leon moderate assist (50% patients effort) Physical Assist/Nonphysical Assist 1 person assist Toileting Level of Leon minimum assist (75% patients effort) Physical Assist/Nonphysical Assist 1 person assist;verbal cues Assistive Device grab bars;rolling walker Assessment Assessment Narrative Pt complete total body sponge bathing and dressing tasks sitting and standing in chair. patient require assistance for distal LE due to hip precautions CGA in standing for precious area care. patient educated on use of AE for LB dressing tasks requiring min-mod assist for YOEL hose management complete functional mobility into bathroom CGA for mobility min assist for sit to stand complete toileting tasks, instruction on use of supervisor tan room for shorts and underwear management CGA, standing at sink hygiene utilizing sink for UE support CGA, return to sitting up in recliner chair education on SHIVANI dressing, YOEL hose care and wearing schedule, ice applied and call light in reach Clinical Impression Patient Instruction dressing, bathing, transfers, AE training, hip precautions Today's Treatment Included self care Therapist Information License # [id number] * Marilou Lau CNP - 11/29/2019 12:06 PM EST [facility] LOS: 1 day Principal Problem: Primary osteoarthritis of left hip Active Problems: GERD (gastroesophageal reflux disease) Benign hypertension SUBJECTIVE: Patient resting in chair, Denies fever, chills, chest pain or sob. Is eating and drinking well. Working with therapy and doing well PHYSICAL EXAMINATION: Blood pressure 98/54, pulse 72, temperature 98.1 F (36.7 C), temperature source Oral, resp. rate 16, height 1.651 m (5' 5 ), weight 86.5 kg (190 lb 11.2 oz), SpO2 99 %. Gen: Comfortable in bed, no signs of distress HEENT: Normocephalic, atraumatic, Moist oral mucous membranes Neck: supple, Lungs: Clear to auscultation BL, anterior and posterior, without rales, rhonchi or wheezing Heart: Regular in rate and rhythm. Without murmur, rub or gallop Abd: Soft and non-distended. Non tender BSPx 4 Skin: No obvious rashes or cyanosis. -dressing d/i Neuro: Grossly non-focal examination. Intake and Output: Intake/Output Summary (Last 24 hours) at 11/29/2019 1206 Last data filed at 11/29/2019 0830 Gross per 24 hour Intake 1229 ml Output Net 1229 ml Daily Weight: Wt Readings from Last 3 Encounters: 11/28/19 86.5 kg (190 lb 11.2 oz) 11/06/19 88.5 kg (195 lb) 09/28/19 88.5 kg (195 lb) CURRENT MEDICATIONS: Current Facility-Administered Medications Medication Dose Route Frequency Provider Last Rate Last Dose acetaminophen (TYLENOL) tablet 1,000 mg 1,000 mg Oral Q6HNS ELINOR Miller 1,000 mg at 11/29/[address] 81 mg 81 mg Oral Q12H ELINOR Miller 81 mg at 11/29/19 0830 bisacodyl (DULCOLAX) suppository 10 mg 10 mg Rectal Daily PRN ELINOR Miller dexamethasone (DECADRON) injection 10 mg 10 mg Intravenous Q24H ELINOR Miller docusate (COLACE) capsule 100 mg 100 mg Oral BID ELINOR Miller 100 mg at 11/29/19 0830 gabapentin (NEURONTIN) capsule 100 mg 100 mg Oral TID Marilou Lau CNP 100 mg at 11/29/19 0830 HYDROmorphone (DILAUDID) injection 0.5 mg 0.5 mg Intravenous Q4H PRN ELINOR Miller losartan (COZAAR) tablet 50 mg 50 mg Oral Daily Marilou Lau CNP 50 mg at 11/29/19 0830 ondansetron 4mg/2ml (ZOFRAN) injection 4 mg 4 mg Intravenous Q4H PRN ELINOR Miller pantoprazole (PROTONIX) tablet DR 40 mg 40 mg Oral Daily Marilou Lau CNP 40 mg at 11/29/19 0830 potassium chloride (K-DUR, KLOR-CON M20) tablet ER 40 mEq 40 mEq Oral Daily PRN Marilou Lau CNP senna-docusate (SENOKOT-S) 8.6-50 MG per tablet 2 tablet 2 tablet Oral BID PRN ELINOR Miller sodium chloride 0.9% IV solution 100 mL/hr Intravenous Continuous ELINOR Miller Stopped at 11/29/19 0333 sodium phosphate w/sodium biphosphate (FLEETS) enema 1 enema 1 enema Rectal Daily PRN ELINOR Miller traMADol (ULTRAM) tablet 50-100 mg 50-100 mg Oral Q6H PRN ELINOR Miller zolpidem (AMBIEN) tablet 5 mg 5 mg Oral QHS PRN ELINOR Miller [facility]: [facility] Lab Results Component Value Date/Time WBC 10.9 11/29/2019 05:32 AM WBC 5.3 11/06/2019 11:00 AM WBC 8.4 10/06/2018 05:37 AM HGB 12.2 11/29/2019 05:32 AM HGB 14.3 11/06/2019 11:00 AM HGB 11.1 (L) 10/06/2018 05:37 AM HCT 36.4 11/29/2019 05:32 AM HCT 41.4 11/06/2019 11:00 AM HCT 33.5 (L) 10/06/2018 05:37 AM PLATELET 268 11/29/2019 05:32 AM PLATELET 321 11/06/2019 11:00 AM PLATELET 271 10/06/2018 05:37 AM Chemistry Lab Results Component Value Date/Time GLUCOSE 123 (H) 11/29/2019 05:32 AM GLUCOSE 75 11/06/2019 11:00 AM GLUCOSE 94 09/22/2018 09:37 AM BUN 18 11/29/2019 05:32 AM BUN 20 11/06/2019 11:00 AM BUN 15 09/22/2018 09:37 AM CREATSERUM 0.87 11/29/2019 05:32 AM CREATSERUM 0.79 11/06/2019 11:00 AM CREATSERUM 0.8 09/22/2018 09:37 AM SODIUM 142 11/29/2019 05:32 AM SODIUM 143 11/06/2019 11:00 AM SODIUM 142 09/22/2018 09:37 AM POTASSIUM 4.3 11/29/2019 05:32 AM POTASSIUM 4.7 11/06/2019 11:00 AM POTASSIUM 4.2 09/22/2018 09:37 AM CHLORIDE 111 (H) 11/29/2019 05:32 AM CHLORIDE 107 11/06/2019 11:00 AM CHLORIDE 106 09/22/2018 09:37 AM CO2 23 11/29/2019 05:32 AM CO2 27 11/06/2019 11:00 AM CO2 26 09/22/2018 09:37 AM ALBUMIN 3.0 (L) 11/29/2019 05:32 AM ALBUMIN 3.4 (L) 11/06/2019 11:00 AM CALCIUM 8.7 11/29/2019 05:32 AM CALCIUM 9.5 11/06/2019 11:00 AM CALCIUM 9.3 09/22/2018 09:37 AM PHOSPHORUS 3.7 11/29/2019 05:32 AM COAG Lab Results Component Value Date/Time PT 12.9 11/06/2019 11:00 AM PT 12.3 09/22/2018 09:37 AM INR 0.98 11/06/2019 11:00 AM INR 0.92 09/22/2018 09:37 AM ASSESSMENT & PLAN: Principal Problem: Primary osteoarthritis of left hip- POD # 1 left total hip arthroplasty/muscle repair with Dr. Horan . Surgery was uneventful and she is recovered without incident.- DVT prophylaxis, pain management, physical and occupational therapy to evaluate and treat Active Problems: GERD (gastroesophageal reflux disease) Benign hypertension Dvt/gip- ppi and asa Full Code Please note Portions of this note utilized [employer] dictation software, please excuse any typographical or grammatical errors. Associated attestation - Shola Cornejo DO - 11/29/2019 7:59 PM EST Patient seen and examined independently. Meds, labs, and radiographs reviewed. Lungs clear and heart tones regular on exam. Await ECF placement. I agree with assessments and planof care. * Selena Rene, PT - 11/29/2019 11:11 AM EST 11/29/19 0908 Subjective RN Approved Intervention as tolerated Existing Precautions/Restrictions fall;hip;weight bearing (TTWB, global precautions L hip, no active abd) Subjective Reports Pt seated in recliner, agreeable to therapy. Cognitive Status Examination Orientation Status (Cognition) oriented x 4 Level of Consciousness alert;cooperative Personal Safety and Judgment intact General Pain Documentation (Adult, OB, Peds) Presence of Pain denies pain/discomfort Pain Location hip, left Pain Management Interventions cold application;ambulated Select Pain Scale DVPRS (Defense and Veterans Pain Rating Scale) (Adult- Cognitively Intact) DVPRS (Defense and Veterans Pain Rating Scale) DVPRS: Rest 0- no pain (sore) Objective Therapeutic Interventions Pt seated in recliner and agreeable to therapy. Pt ambulated to/from bathroom with step to gait pattern, FWW and TTWB status with CGA for safety. Pt required supervision fortoilet transfer and CGA while donning/doffing clothing. Therapist facilitated gait training x50 ft to therapy room with step to gait pattern and TTWB status. Pt educated on simulated car transfer using leg environmental manager with SBA for safety and mod cues for technique. Therapist instructed pt in [id number] ea including LAQ, quad sets, glute sets, heel slides, ankle pumps and SAQ. Pt performed bed mobility with min assist to L and SBA to R this date. Pt returned to room ambulating with CGA for safety and step to gait pattern. Pt left seated in recliner with feet elevated, CP applied and call lightin reach. Selena Rene, PT * Nessa Braun LSW - 11/29/2019 10:51 AM EST Call received from [facility]. They state they can accept patient anytimeFriday or after. CM to follow. * Nessa Braun LSW - 11/29/2019 9:48 AM EST Met with patient this date to discuss discharge plans. Patient states that she would like to go to [facility] for a while upon discharge. States she is not comfortable going home just yet. SNF list reviewed and signed and referral made to [facility]. Patient has her own wheeled walker. CM to make referral and follow. * Rhonda Hanna RD - 11/29/2019 9:15 AM EST Nutrition: RD discussed pt situation with Lenora QUEEN and decided that pt will receive [facility] to take upondischarge. RD spoke with pt to follow up on discussion/encounter with pt over the phone prior to surgery. Pt was selected based on screening labs for [facility]. 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 Pt lives in [facility]. Pt was agreeable to drinking 1 Equate meal replacement drink 1 a day for 4 days and then 2 a day for the week before surgery. Pt reports that it went ok. Pt was not thrilled by the taste but was not upset by it either. Pt reports buying Ensure High Protein and used those to either mix in or to replace the equate meal replacement drink. Pt agreeable to drink [facility]. Lenora QUEEN to provide prior to discharge. RD with supply pt with handouts explaining the product and giving sample schedules on how/when to drink the product. RD briefly reviewed the benefits of this product to pt and pt was able to reiterate the benefits back to RD. Time Spent with Patient: [address] 11/29/2019 * Suhas Greene, AIR CONDITIONING SUPERVISOR-PUMPER GAGER APPRENTICE - 11/29/2019 9:05 AM EST Total Joint Progress Note P O DAY # 1 PROCEDURE: l boone al SUBJECTIVE: No new symptoms or complaints PAIN RATIN/10 OBJECTIVE: Lab Results Component Value Date WBC 10.9 11/29/2019 HGB 12.2 11/29/2019 HGB 14.3 11/06/2019 HGB 11.1 (L) 10/06/2018 HCT 36.4 11/29/2019 HCT 41.4 11/06/2019 HCT 33.5 (L) 10/06/2018 PLATELET 268 11/29/2019 MCV 84.4 11/29/2019 Lab Results Component Value Date SODIUM 142 11/29/2019 POTASSIUM 4.3 11/29/2019 CHLORIDE 111 (H) 11/29/2019 CO2 23 11/29/2019 BUN 18 11/29/2019 BUN 20 11/06/2019 BUN 15 09/22/2018 CREATSERUM 0.87 11/29/2019 CREATSERUM 0.79 11/06/2019 CREATSERUM 0.8 09/22/2018 GLUCOSE 123 (H) 11/29/2019 Vital Signs: Vitals: 11/29/19 0702 BP: 102/60 Pulse: 73 Resp: 16 Temp: 97.9 F (36.6 C) Patient is alert and oriented times three. Abdomen: Soft, non-tender without organomegaly and bowel sounds are active Vascular: Dorsalis pedis/posterior tibial pulses RIGHT/LEFT/BILATERAL: Bilateral NORMAL / ABNORMAL (RESULT): Normal Neuro: Intact/deficit: intact to light touch Wound Appearance: DESCRIPTION; WOUND: incision Erythema: PRESENT OR ABSENT: absent Drainage none Dressing: Clean/dry/intact DVT Screening Exam: Calves soft/non-tender Yoel hose: PRESENT OR ABSENT: present Foot pumps/ SCD's: PRESENT OR ABSENT: present Hemovac Drain Output: na mL/last shift Physical Therapy: Gait Distance: 50 Feet: ASSESSMENT: sp l boone al pod 1 PLAN: 1. PT/OT 2. IV antibiotics 3. DVT prophylaxis 4. Discharge planning DISCHARGE PLANNING: plans; post hospital: SEE SS NOTES * Genie Cason, OT - 11/28/2019 4:34 PM EST 11/28/19 1540 General Information RN Approved Intervention as tolerated Admitting Diagnosis osteoarthritis of hip Surgical Procedure left BOONE (anterior/lateral) Past Surgical History Past Surgical History: Procedure Laterality Date REVISION ARTHROPLASTY KNEE Right 10/04/2018 Laterality: Right; Surgeon: Tonio Horan MD; Location: [facility] OR ARTHROPLASTY KNEE TOTAL Right 09/07/2016 ARTHROPLASTY KNEE TOTAL Left 2016 KNEE ARTHROSCOPY Left 2014 FOOT SURGERY Left HYSTERECTOMY total RECONST EYELID FULL THICKNESS FLAP LOWER LID TOTAL 1ST STAGE ROTATOR CUFF REPAIR Bilateral done separately 2006 & 2013 Past Medical History Past Medical History: Diagnosis Date Arthritis hips, back, left thumb Essential hypertension, benign Good exercise tolerance greater than 4 mets Yeast infection underneath both breasts; currently on lamisil and hydrocortisone; pt will follow up with Dr Stevenson let him know it's not going away Existing Precautions/Restrictions fall;hip;weight bearing (TTWB, global hip precautions, no active hip abduction) Previous Level of Function Bed Mobility/Transfers independent Bathing independent Upper Body Dressing independent Lower Body Dressing independent Grooming independent Toileting independent Eating independent Home Management Skills independent General Pain Documentation (Adult, OB, Peds) Presence of Pain complains of pain/discomfort Pain Location hip, left Pain Management Interventions cold application Select Pain Scale (2/10) Home Setting Residence Home Lives With spouse First floor bed/bathroom yes;walk-in shower;grab bars Second floor bed/bathroom no Number of Stairs to Enter Home 2 Number of Stairs Within Home 0 Equipment Available wheeled walker;shower chair;supervisor tan room;sock-aid;long-handled shoe horn;elevated toilet seat Cognitive Status Examination Orientation Status (Cognition) oriented x 4 Level of Consciousness alert Able to Follow Commands (Communication) WFL Personal Safety and Judgment intact Sensory Examination Sensory Examination WFL Range of Motion (ROM) Range of Motion Examination bilateral upper extremity ROM was WFL Manual Muscle Testing (MMT) Dominant Hand right Bed Mobility Skill: Supine to Sit, Rehab Eval Level of Leon: Supine/Sit minimum assist (75% patients effort) Physical Assist/Nonphysical Assist: Supine/Sit 1 person assist (utilizing leg environmental manager) Transfer Skill: Sit to Stand, Rehab Eval Level of Leon: Sit/Stand moderate assist (50% patients effort) Physical Assist/Nonphysical Assist: Sit/Stand 1 person assist Weight-Bearing Restrictions: Sit/Stand toe touch weight-bearing Assistive Device for Transfer: Sit/Stand wheeled walker Upper Body Dressing Level of Leon independent Physical Assist/Nonphysical Assist set-up required Lower Body Dressing Level of Leon maximum assist (25% patients effort) Physical Assist/Nonphysical Assist 1 person assist Assistive Device supervisor tan room General Therapy Interventions Planned Therapy Interventions (OT Eval) ADL retraining;balance training;strengthening;transfer training PRIOR LEVEL [facility] Activity Inpatient Short Form Putting on/Taking Off Lower Body Clothing 4 - No Assistance Bathing 4 - No Assistance Toileting 4 - No Assistance Putting on/Taking Off Upper Body Clothing 4 - No Assistance Grooming 4 - No Assistance Eating 4 - No Assistance PRIOR LEVEL AM-PAC Activity Raw Score 24 PRIOR LEVEL AM-PAC Activity Functional Limitation/Modifier 0.00% Prior Functional Impairment in Daily Activity [facility] Activity Inpatient Short Form Putting on/Taking Off Lower Body Clothing 2 - A Lot of Assistance Bathing 2 - A Lot of Assistance Toileting 2 - A Lot of Assistance Putting on/Taking Off Upper Body Clothing 4 - No Assistance Grooming 4 - No Assistance Eating 4 - No Assistance CURRENT AM-PAC Activity Raw Score 18 CURRENT AM-PAC Activity Functional Limitation/Modifier 46.65% Currently Impaired in Daily Activity - CK PROJECTED AM-PAC Activity Raw Score 21 PROJECTED AM-PAC Activity Functional Limitation/Modifier 32.79% - CJ Assessment Assessment Narrative Pt demonstrates good safety awareness during functional mobility and transfer training requiring min cuing for sequencing to follow weight bearing status, patient educated on LB dressing techniques donning underwear and shorts max assist in sitting and standing utilizing supervisor tan room, patient and spouse educated on appropriate type of underwear to use with incision on hip verbalize understanding. discuss safety techniques with shower transfer as patient has small built in ledge and shower chair for walk in shower with little space to maintain TTWB, possibly recommend tub transfer bench to use tub shower Clinical Impression Patient Instruction dressing techniques, transfers Rehab Potential (OT Eval) good, to achieve stated therapy goals Therapy Frequency 7 times a week Anticipated Equipment Needs at Discharge (OT Eval) tub bench Initial Evaluation/Screen Completed? yes Today's Treatment Included OT evaluation, self care training Continue care plan yes Goals Goals For Discharge Recommend inpatient rehab vs. ECF Discussed risk / benefits with patient;patient's family Therapist Recommendations At Discharge Recommendations OT Services recommended at Discharge Plan Plan Narrative continue with bathing, dressing and transfer training Therapist Information License # [id number] 1. Pt will complete LB dressing min assist utilizing AE 2. Pt will complete sponge bathing min assist 3. Pt will complete toileting to bathroom commode min assist 4. Pt will complete hygiene/grooming standing at sink CGA 5. Pt will complete walk in vs. Tub shower transfer min assist utilizing AE/AD * Selena Rene, PT - 11/28/2019 4:09 PM EST 11/28/19 [id number] General Information RN Approved Intervention as tolerated Diagnosis OA of L hip Surgical Procedure L AL BOONE Past Medical History Past Medical History: Diagnosis Date Arthritis hips, back, left thumb Essential hypertension, benign Good exercise tolerance greater than 4 mets Yeast infection underneath both breasts; currently on lamisil and hydrocortisone; pt will follow up with Dr Stevenson let him know it's not going away Past Surgical History Past Surgical History: Procedure Laterality Date REVISION ARTHROPLASTY KNEE Right 10/04/2018 Laterality: Right; Surgeon: Tonio Horan MD; Location: [facility] OR ARTHROPLASTY KNEE TOTAL Right 09/07/2016 ARTHROPLASTY KNEE TOTAL Left 2016 KNEE ARTHROSCOPY Left 2014 FOOT SURGERY Left HYSTERECTOMY total RECONST EYELID FULL THICKNESS FLAP LOWER LID TOTAL 1ST STAGE ROTATOR CUFF REPAIR Bilateral done separately 2006 & 2013 Existing Precautions/Restrictions hip;weight bearing (global L hip, no active abduction, TTWB) Left Lower Extremity toe touch weight bearing Right Lower Extremity full weight bearing Home Setting Residence Home Lives With spouse First floor bed/bathroom yes;walk-in shower;grab bars Number of Stairs to Enter Home 2 Number of Stairs Within Home 0 Stair Railings at Home with rail Equipment Available wheeled walker;elevated toilet seat;shower chair;grab bars Previous Level of Function Ambulation Skills independent Assistive Device none used Level of Ambulation [facility] General Pain Documentation (Adult, OB, Peds) Presence of Pain complains of pain/discomfort Pain Location hip, left Pain Management Interventions ambulated Select Pain Scale DVPRS (Defense and Veterans Pain Rating Scale) (Adult- Cognitively Intact) DVPRS (Defense and Veterans Pain Rating Scale) DVPRS: Rest 2- mild pain DVPRS: Activity 2- mild pain Cognitive Status Examination Orientation Status (Cognition) oriented x 4 Level of Consciousness alert;cooperative Able to Follow Commands (Communication) WFL Personal Safety and Judgment intact Range of Motion (ROM) Range of Motion Examination bilateral lower extremity ROM was WFL Manual Muscle Testing (MMT) Manual Muscle Testing Results Hip flexion: R 4+/5, L 3/5 Knee flex R 4+/5, L 4-/5 Knee ext R 4+/5, L 3+/5 Bed Mobility Skill: Supine to Sit, Rehab Eval Level of Leon: Supine/Sit moderate assist (50% patients effort) Physical Assist/Nonphysical Assist: Supine/Sit 1 person assist Transfer Skill: Sit To Stand, Rehab Eval Leon (Sit-Stand Transfers) minimum assist (75% patient effort) Physical Assist/Nonphysical Assist: Sit/Stand 1 person assist Weight-Bearing Restrictions: Sit/Stand toe touch weight-bearing Assistive Device For Transfer: Sit/Stand 2 wheeled walker Gait Skills, PT Eval Level of Leon: Gait contact guard Physical Assist/Nonphysical Assist: Gait 1 person assist Weight-Bearing Restrictions: Gait toe touch weight-bearing Assistive Device For Transfer: Gait 2 wheeled walker Gait Distance 15 feet Gait Analysis, PT Eval Gait Pattern Used swing-to gait Gait Deviations Identified (Gait) decreased step length;decreased gait speed Impairments Contributing To Gait Deviations impaired balance;pain;decreased strength Sensory Examination Sensory Examination WFL General Interventions Planned Therapy Interventions balance training;bed mobility training;gait training;neuromuscular re-education;strengthening;transfer training PRIOR LEVEL [facility] Basic Mobility Inpatient Short Form Turning over in bed 4 - No Assistance Sitting/standing from chair 4 - No Assistance Moving from lying on back to sitting 4 - No Assistance Moving to and from bed to chair 4 - No Assistance Walk in hospital room 4 - No Assistance Climbing 3-5 steps with a railing 4 - No Assistance PRIOR LEVEL [facility] Mobility Raw Score 24 PRIOR LEVEL [facility] Mobility Functional Limitation/Modifier 0.00% Prior Functional Impairment in Basic Mobility CURRENT [facility] Basic Mobility Inpatient Short Form Turning over in bed 4 - No Assistance Sitting/standing from chair 3 - A Little Assistance Moving from lying on back to sitting 2 - A Lot of Assistance Moving to and from bed to chair 3 - A Little Assistance Walk in hospital room 3 - A Little Assistance Climbing 3-5 steps with a railing 1 - Total Assistance CURRENT [facility] Mobility Raw Score 16 CURRENT [facility] Mobility Functional Limitation/Modifier 54.16% Currently Impaired in Basic Mobility - CK Projected [facility] Mobility Raw Score 22 Projected [facility] Mobility Functional Limitation/Modifier 20.91% Projected Functional Impairment in Basic Mobility Assessment Assessment Narrative Pt presents s/p L A/L hip replacement with global precautions. Pt demonstratesdecreased strength, impaired bed mobility, impaired gait, impaired balance and decreased overall functional ability. Pt will benefit from skilled PT services. Discharge Recommendations inpatient rehab vs ECF Clinical Impression Criteria for Skilled Therapeutic Interventions Met (PT Eval) yes;treatment indicated Impairments Found (PT Eval) aerobic capacity/endurance;gait, locomotion, and balance Rehab Potential (PT Eval) good, to achieve stated therapy goals Therapy Frequency 2 times a day PT Therapy Completed Yes PT Therapies Still to Complete 13 Initial Evaluation/Screen Completed? yes Continue care plan yes Today's Treatment Included PT evaluation completed. Pt performed supine to sit with mod assist and cues for use of leg environmental manager. Pt performed LE exercises 10x ea including ankle pumps, quad sets, glutesets, SAQ and heel slides. therapist facilitated sit to stand from bed with CGA for safety and FWW for support. Pt ambulated x15 ft with FWW and toe touch weightbearing status and min cues for technique with step to gait pattern. Pt educated on global hip precautions. Pt returned to recliner with OT present. Therapist Recommendations At Discharge Recommendations PT Services recommended at Discharge Plan Plan Narrative POC to include strengthening, gait training, transfer training, bed mobility and pt education. Therapist Information License # [id number] PT Goals 1. Pt will demonstrate understanding of all precautions during functional mobility. 2. Pt will perform all transfers with SBA and FWW to improve safety at home. 3. Pt will ambulate 100ft with FWW and SBA . 4. Pt will ambulate up and down 2 stairs with FWW and SBA. 5. Pt will be independent with HEP per protocol. Selena Rene, PT * Suhas Greene APRN-CNP - 11/28/2019 12:53 PM EST THIS PATIENT HAS HAD ORTHOPEDIC SURGERY AND IS EXPECTED TO HAVE PAIN REQUIRING NARCOTICS FOR >7 DAYS AND MAY NEED UP TO 8 tabs of ultram PER DAY AND THEREFORE 40 tabs ARE BEING DISPENSED IN ACCORDANCE WITH POC DISCUSSED WITH DR HORAN. documented in this encounter* Suhas Greene APRN-CNP - 12/21/2019 1:20 PM EST Mrs. Radha Chaney is 3 weeks s/p left Anterolateral total hip arthroplasty. She is progressing nicely in her recovery. She is TDWB with global restrictions. She reports 3 out of 10 pain. She is using tylenol and celebrex for pain control and asa for DVT prophylaxis along with YOEL schmitz. Physical Exam: Today on exam incision is healing nicely with global hip swelling, no erythema, drainage or evidence of dehiscence. Calves are soft and nontender with negative Homans sign. ROM is fulland supple with no pain or impingement. Distal neurovascular exam is intact. Visit Vitals Temp 97.9 F (36.6 C) (Temporal) Ht 1.651 m (5' 5 ) Wt 88.5 kg (195 lb) BMI 32.45 kg/m Diagnostic study/interpretation: Plain films were obtained today and reveal a cementless total hip arthroplasty in good position and alignment without evidence of implant loosening or migration as compared to the immediate postop film. Assessment/Plan: 3 week postop BOONE via anterolateral approach. Continue with DVT prophylaxis as prescribed. Continue touchdown weightbearing and global cautions. Follow-up with me in 3 weeks' time. Advised against a lot of excessive therapy based on the left legat this time. She has some moderate swelling report she's had an ultrasound done at the retirement which was negative for DVT. Dental prophylaxis was given. Follow up 6 weeks postop unless an earlier need arises. All questions and concerrns were addressed at this visit. All pertinant portions of the clinical technical support consultant documentation was reviewed. ELINOR Miller I have reviewed the findings of the clinical technical support consultant and agree with their assessment. ELINOR Miller Ortho Nurse Established Patient Intake Room#: 4 Date: 12/21/2019 1:44 PM Patient: Radha Chaney MR#: [id number] : 1940 Age: 79 y.o. Patient is here today for her 3 week follow up of left BOONE. Patient states that she having some swelling in her left leg. She is having soreness and tightness in her leg. Pain scale is 3/10. Patient states that she didn't have any drainage from her incision. Referring Physician: Suhas Greene APRN-CNP Insurance: Payor: MEDICARE / Plan: MEDICARE A AND B / Product Type: *No Product type* / Chief Complaint Patient presents with Left Hip - Post Op Visit Visit Vitals Temp 97.9 F (36.6 C) (Temporal) Ht 1.651 m (5' 5 ) Wt 88.5 kg (195 lb) BMI 32.45 kg/m Pain Recent Labs Lab Results Component Value Date CRP <8.9 09/07/2018 Lab Results Component Value Date SEDRATE 9 09/07/2018 Lab Results Component Value Date WBC 6.6 12/01/2019 HGB 12.3 12/01/2019 HCT 36.5 12/01/2019 PLATELET 266 12/01/2019 MCV 83.3 12/01/2019 History Past Medical History: Diagnosis Date Arthritis hips, back, left thumb Essential hypertension, benign Good exercise tolerance greater than 4 mets Yeast infection underneath both breasts; currently on lamisil and hydrocortisone; pt will follow up with Dr Stevenson let him know it's not going away Past Surgical History: Procedure Laterality Date ARTHROPLASTY HIP TOTAL Left 11/28/2019 Laterality: Left; Surgeon: Tonio Horan MD; Location: [facility] OR REVISION ARTHROPLASTY KNEE Right 10/04/2018 Laterality: Right; Surgeon: Tonio Horan MD; Location: [facility] OR ARTHROPLASTY KNEE TOTAL Right 09/07/2016 ARTHROPLASTY KNEE TOTAL Left 2015 KNEE ARTHROSCOPY Left 2014 FOOT SURGERY Left HYSTERECTOMY total RECONST EYELID FULL THICKNESS FLAP LOWER LID TOTAL 1ST STAGE ROTATOR CUFF REPAIR Bilateral done separately 2006 & 2013 Family History: Her family history includes Diabetes in her mother; Heart Disease - Other in her mother; Myocardial Infarction in her brother and father. Social History: Her reports that she has never smoked. She has never used smokeless tobacco. She reports that she does not drink alcohol or use drugs. Outpatient Medications Prior to Visit Medication Sig Dispense Refill acetaminophen 325 MG tablet Take 2 tablets by mouth every 4 hours as needed for Mild Pain. 50 tablet 1 aspirin EC [address] Take 81 mg by mouth daily. aspirin EC [address] Take 1 table twice a day for 30days. This medication is for blood clot prevention. 60 tablet 0 CALCIUM CITRATE PO Take 600 mg by mouth every 12 hours. celecoxib 200 MG Cap capsule Take 1 capsule by mouth 2 times daily. 84 capsule 0 Coenzyme Q10 (COQ10) 100 MG Cap Take 100 mg by mouth. docusate 100 MG Cap capsule Take 1 capsule by mouth 2 times daily. 60 capsule 0 gabapentin 100 MG Cap capsule Take 100 mg by mouth 3 times daily. LOSARTAN POTASSIUM PO Take 50 mg by mouth daily. magnesium oxide 400 (241.3 Mg) MG Tab tablet Take 250 mg by mouth daily. Multiple Vitamins-Minerals (CENTRUM SILVER PO) Take by mouth. omeprazole [address] capsule Take 1 capsule by mouth daily. 30 capsule 0 TURMERIC PO Take 1 capsule by mouth daily. Vitamin D3 1000 units Tab tablet Take 5,000 Units by mouth daily. traMADol 50 MG Tab tablet 1-2 tabs po q 6 hr PRN pain 40 tablet 0 No facility-administered medications prior to visit. Current Outpatient Medications: acetaminophen 325 MG tablet, Take 2 tablets by mouth every 4 hours as needed for Mild Pain., Disp: 50 tablet, Rfl: 1 aspirin EC [address], Take 81 mg by mouth daily., Disp: , Rfl: aspirin EC [address], Take 1 table twice a day for 30days. This medication is for blood clot prevention., Disp: 60 tablet, Rfl: 0 CALCIUM CITRATE PO, Take 600 mg by mouth every 12 hours., Disp: , Rfl: celecoxib 200 MG Cap capsule, Take 1 capsule by mouth 2 times daily., Disp: 84 capsule, Rfl: 0 Coenzyme Q10 (COQ10) 100 MG Cap, Take 100 mg by mouth., Disp: , Rfl: docusate 100 MG Cap capsule, Take 1 capsule by mouth 2 times daily., Disp: 60 capsule, Rfl: 0 gabapentin 100 MG Cap capsule, Take 100 mg by mouth 3 times daily. , Disp: , Rfl: LOSARTAN POTASSIUM PO, Take 50 mg by mouth daily., Disp: , Rfl: magnesium oxide 400 (241.3 Mg) MG Tab tablet, Take 250 mg by mouth daily., Disp: , Rfl: Multiple Vitamins-Minerals (CENTRUM SILVER PO), Take by mouth., Disp: , Rfl: omeprazole [address] capsule, Take 1 capsule by mouth daily., Disp: 30 capsule, Rfl: 0 TURMERIC PO, Take 1 capsule by mouth daily., Disp: , Rfl: Vitamin D3 1000 units Tab tablet, Take 5,000 Units by mouth daily. , Disp: , Rfl: traMADol 50 MG Tab tablet, 1-2 tabs po q 6 hr PRN pain, Disp: 40 tablet, Rfl: 0 Allergies: She has No Known Allergies. * Katie Hernandez - 12/21/2019 1:20 PM EST Ortho Nurse Established Patient Intake Room#: 4 Date: 12/21/2019 1:44 PM Patient: Radha Chaney MR#: [id number] : 1940 Age: 79 y.o. Patient is here today for her 3 week follow up of left BOONE. Patient states that she having some swelling in her left leg. She is having soreness and tightness in her leg. Pain scale is 3/10. Patient states that she didn't have any drainage from her incision. Referring Physician: Suhas Greene APRN-CNP Insurance: Payor: MEDICARE / Plan: MEDICARE A AND B / Product Type: *No Product type* / Chief Complaint Patient presents with Left Hip - Post Op Visit Visit Vitals Temp 97.9 F (36.6 C) (Temporal) Ht 1.651 m (5' 5 ) Wt 88.5 kg (195 lb) BMI 32.45 kg/m Pain Recent Labs Lab Results Component Value Date CRP <8.9 09/07/2018 Lab Results Component Value Date SEDRATE 9 09/07/2018 Lab Results Component Value Date WBC 6.6 12/01/2019 HGB 12.3 12/01/2019 HCT 36.5 12/01/2019 PLATELET 266 12/01/2019 MCV 83.3 12/01/2019 History Past Medical History: Diagnosis Date Arthritis hips, back, left thumb Essential hypertension, benign Good exercise tolerance greater than 4 mets Yeast infection underneath both breasts; currently on lamisil and hydrocortisone; pt will follow up with Dr Stevenson let him know it's not going away Past Surgical History: Procedure Laterality Date ARTHROPLASTY HIP TOTAL Left 11/28/2019 Laterality: Left; Surgeon: Tonio Horan MD; Location: [facility] OR REVISION ARTHROPLASTY KNEE Right 10/04/2018 Laterality: Right; Surgeon: Tonio Horan MD; Location: [facility] OR ARTHROPLASTY KNEE TOTAL Right 09/07/2016 ARTHROPLASTY KNEE TOTAL Left 2016 KNEE ARTHROSCOPY Left 2015 FOOT SURGERY Left HYSTERECTOMY total RECONST EYELID FULL THICKNESS FLAP LOWER LID TOTAL 1ST STAGE ROTATOR CUFF REPAIR Bilateral done separately 2006 & 2013 Family History: Her family history includes Diabetes in her mother; Heart Disease - Other in her mother; Myocardial Infarction in her brother and father. Social History: Her reports that she has never smoked. She has never used smokeless tobacco. She reports that she does not drink alcohol or use drugs. Outpatient Medications Prior to Visit Medication Sig Dispense Refill acetaminophen 325 MG tablet Take 2 tablets by mouth every 4 hours as needed for Mild Pain. 50 tablet 1 aspirin EC [address] Take 81 mg by mouth daily. aspirin EC [address] Take 1 table twice a day for 30days. This medication is for blood clot prevention. 60 tablet 0 CALCIUM CITRATE PO Take 600 mg by mouth every 12 hours. celecoxib 200 MG Cap capsule Take 1 capsule by mouth 2 times daily. 84 capsule 0 Coenzyme Q10 (COQ10) 100 MG Cap Take 100 mg by mouth. docusate 100 MG Cap capsule Take 1 capsule by mouth 2 times daily. 60 capsule 0 gabapentin 100 MG Cap capsule Take 100 mg by mouth 3 times daily. LOSARTAN POTASSIUM PO Take 50 mg by mouth daily. magnesium oxide 400 (241.3 Mg) MG Tab tablet Take 250 mg by mouth daily. Multiple Vitamins-Minerals (CENTRUM SILVER PO) Take by mouth. omeprazole [address] capsule Take 1 capsule by mouth daily. 30 capsule 0 TURMERIC PO Take 1 capsule by mouth daily. Vitamin D3 1000 units Tab tablet Take 5,000 Units by mouth daily. traMADol 50 MG Tab tablet 1-2 tabs po q 6 hr PRN pain 40 tablet 0 No facility-administered medications prior to visit. Current Outpatient Medications: acetaminophen 325 MG tablet, Take 2 tablets by mouth every 4 hours as needed for Mild Pain., Disp: 50 tablet, Rfl: 1 aspirin EC [address], Take 81 mg by mouth daily., Disp: , Rfl: aspirin EC [address], Take 1 table twice a day for 30days. This medication is for blood clot prevention., Disp: 60 tablet, Rfl: 0 CALCIUM CITRATE PO, Take 600 mg by mouth every 12 hours., Disp: , Rfl: celecoxib 200 MG Cap capsule, Take 1 capsule by mouth 2 times daily., Disp: 84 capsule, Rfl: 0 Coenzyme Q10 (COQ10) 100 MG Cap, Take 100 mg by mouth., Disp: , Rfl: docusate 100 MG Cap capsule, Take 1 capsule by mouth 2 times daily., Disp: 60 capsule, Rfl: 0 gabapentin 100 MG Cap capsule, Take 100 mg by mouth 3 times daily. , Disp: , Rfl: LOSARTAN POTASSIUM PO, Take 50 mg by mouth daily., Disp: , Rfl: magnesium oxide 400 (241.3 Mg) MG Tab tablet, Take 250 mg by mouth daily., Disp: , Rfl: Multiple Vitamins-Minerals (CENTRUM SILVER PO), Take by mouth., Disp: , Rfl: omeprazole [address] capsule, Take 1 capsule by mouth daily., Disp: 30 capsule, Rfl: 0 TURMERIC PO, Take 1 capsule by mouth daily., Disp: , Rfl: Vitamin D3 1000 units Tab tablet, Take 5,000 Units by mouth daily. , Disp: , Rfl: traMADol 50 MG Tab tablet, 1-2 tabs po q 6 hr PRN pain, Disp: 40 tablet, Rfl: 0 Allergies: She has No Known Allergies. documented in this encounter* Suhas Greene, AIR CONDITIONING SUPERVISOR-PUMPER GAGER APPRENTICE - 01/10/2020 11:20 AM EST HISTORY OF PRESENT ILLNESS: Radha is an established patient of mine. She is here today for followup. She is 6 weeks out from left total hip arthroplasty with severe adductor tear with artelon tissue grafting. She reports overall she is doing well. She is having minimal pain, still taking some Tylenol. The complaint is edema in her left leg. She was started on some diuretics by her primary care doctor, but otherwise she reports she is doing well. Her only concern is that she would like to be doing more on the hip. PHYSICAL EXAMINATION: GENERAL: She is alert, oriented, and age-appropriate female, in no acute distress. Pleasant and cooperative. EXTREMITIES: Left lower extremity has thigh and calf soft, nontender. Normal neurovascular status. Negative Homans sign. Well-healed anterolateral based hip incision without redness, drainage, dehiscence, discharge, signs and symptoms of infection. There is full and supple motion of the hip without pain or impingement. No tenderness laterally overlying the greater trochanter. Skin is otherwise intact. Right lower extremity thigh and calf soft, nontender. Normal neurovascular status. Negative Homans sign. She has 1 to 2+ edema in both legs, perhaps slightly worse than the left. She has had previously completed ultrasound that was negative for a DVT by her report. DIAGNOSTIC STUDY INTERPRETATION: AP pelvis and left hip series taken today demonstrate stable position and alignment of the cementless total hip arthroplasty. It is in unchanged position and alignment when compared to previous imaging. No evidence of periprosthetic implant loosening or migration. ASSESSMENT: Six weeks status post left total hip arthroplasty. PLAN: I reviewed my findings with Radha as well as her today. Overall, I could not be happier with the outcomes of the operation. I expect continued improvements in strength and mobility moving forward. I am okay with her advancing to partial weightbearing at this time and very cautiously advancing out of her hip precautions. We have talked about that today. As I have expressed to her the revision repair of adductor tear as such as hers is nearly impossible. She needs to be extremely cautious moving forward with the movements that she makes not distressed the soft tissue repair on the side of the hip. She is understanding of that. She will be asked to partial weightbearing. I will see her back in 2 weeks' time for one final weightbearing check and hopefully advance weightbearing as tolerated at that point. All of her questions and concerns were addressed today to her satisfaction. (DOC:[id number]) I have reviewed the findings of the clinical technical support consultant and agree with their assessment. Suhas Greene APRN-GISELLA Ortho Nurse Established Patient Intake Room#: 5 Date: 01/10/2020 11:41 AM Patient: Radha Chaney MR#: [id number] : 1940 Age: 79 y.o. F/U L A/L BOONE TDWB, wb check. Pt denies any pain. Referring Physician: Self, Self Insurance: Payor: MEDICARE / Plan: MEDICARE A AND B / Product Type: *No Product type* / Chief Complaint Patient presents with Left Hip - Follow-up, Post Op Visit Visit Vitals Temp 97.8 F (36.6 C) (Temporal) Ht 1.651 m (5' 5 ) Wt 88.5 kg (195 lb) BMI 32.45 kg/m Pain Recent Labs Lab Results Component Value Date CRP <8.9 09/07/2018 Lab Results Component Value Date SEDRATE 9 09/07/2018 Lab Results Component Value Date WBC 6.6 12/01/2019 HGB 12.3 12/01/2019 HCT 36.5 12/01/2019 PLATELET 266 12/01/2019 MCV 83.3 12/01/2019 History Past Medical History: Diagnosis Date Arthritis hips, back, left thumb Essential hypertension, benign Good exercise tolerance greater than 4 mets Yeast infection underneath both breasts; currently on lamisil and hydrocortisone; pt will follow up with Dr Stevenson let him know it's not going away Past Surgical History: Procedure Laterality Date ARTHROPLASTY HIP TOTAL Left 11/28/2019 Laterality: Left; Surgeon: Tonio Horan MD; Location: [facility] ARTHROPLASTY KNEE Right 10/04/2018 Laterality: Right; Surgeon: Tonio Horan MD; Location: [facility] ARTHROPLASTY KNEE TOTAL Right 09/07/2016 ARTHROPLASTY KNEE TOTAL Left 2016 KNEE ARTHROSCOPY Left 2014 FOOT SURGERY Left HYSTERECTOMY total RECONST EYELID FULL THICKNESS FLAP LOWER LID TOTAL 1ST STAGE ROTATOR CUFF REPAIR Bilateral done separately 2006 & 2013 Family History: Her family history includes Diabetes in her mother; Heart Disease - Other in her mother; Myocardial Infarction in her brother and father. Social History: Her reports that she has never smoked. She has never used smokeless tobacco. She reports that she does not drink alcohol or use drugs. Outpatient Medications Prior to Visit Medication Sig Dispense Refill acetaminophen 325 MG tablet Take 2 tablets by mouth every 4 hours as needed for Mild Pain. 50 tablet 1 aspirin EC [address] Take 81 mg by mouth daily. aspirin EC [address] Take 1 table twice a day for 30days. This medication is for blood clot prevention. 60 tablet 0 CALCIUM CITRATE PO Take 600 mg by mouth every 12 hours. Coenzyme Q10 (COQ10) 100 MG Cap Take 100 mg by mouth. docusate 100 MG Cap capsule Take 1 capsule by mouth 2 times daily. 60 capsule 0 gabapentin 100 MG Cap capsule Take 100 mg by mouth 3 times daily. LOSARTAN POTASSIUM PO Take 50 mg by mouth daily. magnesium oxide 400 (241.3 Mg) MG Tab tablet Take 250 mg by mouth daily. Multiple Vitamins-Minerals (CENTRUM SILVER PO) Take by mouth. omeprazole [address] capsule Take 1 capsule by mouth daily. 30 capsule 0 spironolactone 25 MG tablet Take 1 tablet by mouth 2 times daily. TURMERIC PO Take 1 capsule by mouth daily. Vitamin D3 1000 units Tab tablet Take 5,000 Units by mouth daily. celecoxib 200 MG Cap capsule Take 1 capsule by mouth 2 times daily. 84 capsule 0 traMADol 50 MG Tab tablet 1-2 tabs po q 6 hr PRN pain 40 tablet 0 No facility-administered medications prior to visit. Current Outpatient Medications: acetaminophen 325 MG tablet, Take 2 tablets by mouth every 4 hours as needed for Mild Pain., Disp: 50 tablet, Rfl: 1 aspirin EC [address], Take 81 mg by mouth daily., Disp: , Rfl: aspirin EC [address], Take 1 table twice a day for 30days. This medication is for blood clot prevention., Disp: 60 tablet, Rfl: 0 CALCIUM CITRATE PO, Take 600 mg by mouth every 12 hours., Disp: , Rfl: Coenzyme Q10 (COQ10) 100 MG Cap, Take 100 mg by mouth., Disp: , Rfl: docusate 100 MG Cap capsule, Take 1 capsule by mouth 2 times daily., Disp: 60 capsule, Rfl: 0 gabapentin 100 MG Cap capsule, Take 100 mg by mouth 3 times daily. , Disp: , Rfl: LOSARTAN POTASSIUM PO, Take 50 mg by mouth daily., Disp: , Rfl: magnesium oxide 400 (241.3 Mg) MG Tab tablet, Take 250 mg by mouth daily., Disp: , Rfl: Multiple Vitamins-Minerals (CENTRUM SILVER PO), Take by mouth., Disp: , Rfl: omeprazole [address] capsule, Take 1 capsule by mouth daily., Disp: 30 capsule, Rfl: 0 spironolactone 25 MG tablet, Take 1 tablet by mouth 2 times daily., Disp: , Rfl: TURMERIC PO, Take 1 capsule by mouth daily., Disp: , Rfl: Vitamin D3 1000 units Tab tablet, Take 5,000 Units by mouth daily. , Disp: , Rfl: celecoxib 200 MG Cap capsule, Take 1 capsule by mouth 2 times daily., Disp: 84 capsule, Rfl: 0 traMADol 50 MG Tab tablet, 1-2 tabs po q 6 hr PRN pain, Disp: 40 tablet, Rfl: 0 Allergies: She has No Known Allergies. * Marian Washburn LPN - 01/10/2020 11:20 AM EST Ortho Nurse Established Patient Intake Room#: 5 Date: 01/10/2020 11:41 AM Patient: Radha Chaney MR#: [id number] : 1940 Age: 79 y.o. F/U L A/L BOONE TDWB, wb check. Pt denies any pain. Referring Physician: Self, Self Insurance: Payor: MEDICARE / Plan: MEDICARE A AND B / Product Type: *No Product type* / Chief Complaint Patient presents with Left Hip - Follow-up, Post Op Visit Visit Vitals Temp 97.8 F (36.6 C) (Temporal) Ht 1.651 m (5' 5 ) Wt 88.5 kg (195 lb) BMI 32.45 kg/m Pain Recent Labs Lab Results Component Value Date CRP <8.9 09/07/2018 Lab Results Component Value Date SEDRATE 9 09/07/2018 Lab Results Component Value Date WBC 6.6 12/01/2019 HGB 12.3 12/01/2019 HCT 36.5 12/01/2019 PLATELET 266 12/01/2019 MCV 83.3 12/01/2019 History Past Medical History: Diagnosis Date Arthritis hips, back, left thumb Essential hypertension, benign Good exercise tolerance greater than 4 mets Yeast infection underneath both breasts; currently on lamisil and hydrocortisone; pt will follow up with Dr Stevenson let him know it's not going away Past Surgical History: Procedure Laterality Date ARTHROPLASTY HIP TOTAL Left 11/28/2019 Laterality: Left; Surgeon: Tonio Horan MD; Location: [facility] ARTHROPLASTY KNEE Right 10/04/2018 Laterality: Right; Surgeon: Tonio Horan MD; Location: [facility] ARTHROPLASTY KNEE TOTAL Right 09/07/2016 ARTHROPLASTY KNEE TOTAL Left 2016 KNEE ARTHROSCOPY Left 2014 FOOT SURGERY Left HYSTERECTOMY total RECONST EYELID FULL THICKNESS FLAP LOWER LID TOTAL 1ST STAGE ROTATOR CUFF REPAIR Bilateral done separately 2006 & 2013 Family History: Her family history includes Diabetes in her mother; Heart Disease - Other in her mother; Myocardial Infarction in her brother and father. Social History: Her reports that she has never smoked. She has never used smokeless tobacco. She reports that she does not drink alcohol or use drugs. Outpatient Medications Prior to Visit Medication Sig Dispense Refill acetaminophen 325 MG tablet Take 2 tablets by mouth every 4 hours as needed for Mild Pain. 50 tablet 1 aspirin EC [address] Take 81 mg by mouth daily. aspirin EC [address] Take 1 table twice a day for 30days. This medication is for blood clot prevention. 60 tablet 0 CALCIUM CITRATE PO Take 600 mg by mouth every 12 hours. Coenzyme Q10 (COQ10) 100 MG Cap Take 100 mg by mouth. docusate 100 MG Cap capsule Take 1 capsule by mouth 2 times daily. 60 capsule 0 gabapentin 100 MG Cap capsule Take 100 mg by mouth 3 times daily. LOSARTAN POTASSIUM PO Take 50 mg by mouth daily. magnesium oxide 400 (241.3 Mg) MG Tab tablet Take 250 mg by mouth daily. Multiple Vitamins-Minerals (CENTRUM SILVER PO) Take by mouth. omeprazole [address] capsule Take 1 capsule by mouth daily. 30 capsule 0 spironolactone 25 MG tablet Take 1 tablet by mouth 2 times daily. TURMERIC PO Take 1 capsule by mouth daily. Vitamin D3 1000 units Tab tablet Take 5,000 Units by mouth daily. celecoxib 200 MG Cap capsule Take 1 capsule by mouth 2 times daily. 84 capsule 0 traMADol 50 MG Tab tablet 1-2 tabs po q 6 hr PRN pain 40 tablet 0 No facility-administered medications prior to visit. Current Outpatient Medications: acetaminophen 325 MG tablet, Take 2 tablets by mouth every 4 hours as needed for Mild Pain., Disp: 50 tablet, Rfl: 1 aspirin EC [address], Take 81 mg by mouth daily., Disp: , Rfl: aspirin EC [address], Take 1 table twice a day for 30days. This medication is for blood clot prevention., Disp: 60 tablet, Rfl: 0 CALCIUM CITRATE PO, Take 600 mg by mouth every 12 hours., Disp: , Rfl: Coenzyme Q10 (COQ10) 100 MG Cap, Take 100 mg by mouth., Disp: , Rfl: docusate 100 MG Cap capsule, Take 1 capsule by mouth 2 times daily., Disp: 60 capsule, Rfl: 0 gabapentin 100 MG Cap capsule, Take 100 mg by mouth 3 times daily. , Disp: , Rfl: LOSARTAN POTASSIUM PO, Take 50 mg by mouth daily., Disp: , Rfl: magnesium oxide 400 (241.3 Mg) MG Tab tablet, Take 250 mg by mouth daily., Disp: , Rfl: Multiple Vitamins-Minerals (CENTRUM SILVER PO), Take by mouth., Disp: , Rfl: omeprazole [address] capsule, Take 1 capsule by mouth daily., Disp: 30 capsule, Rfl: 0 spironolactone 25 MG tablet, Take 1 tablet by mouth 2 times daily., Disp: , Rfl: TURMERIC PO, Take 1 capsule by mouth daily., Disp: , Rfl: Vitamin D3 1000 units Tab tablet, Take 5,000 Units by mouth daily. , Disp: , Rfl: celecoxib 200 MG Cap capsule, Take 1 capsule by mouth 2 times daily., Disp: 84 capsule, Rfl: 0 traMADol 50 MG Tab tablet, 1-2 tabs po q 6 hr PRN pain, Disp: 40 tablet, Rfl: 0 Allergies: She has No Known Allergies. documented in this encounter* Tonio Horan MD - 03/28/2020 11:10 AM EDT HPI: Radha is here today for evaluation of her operative hip. She is status post left total hip arthroplasty. She is about 4 months out and reports that she is doing well and is pleased with the outcome of the intervention. The hip feels better now than it did before, and she is not having any newsymptoms with it. She reports no pain upon exam today. She also states she had some left knee pain about one month ago but the pain has subsided and is no longer a concern. PHYSICAL EXAM: The bilateral lower extremities were evaluated. The operative lower extremity is soft, nontender with full and supple motion of the hip. No pain, no impingement. No instability. The contralateral extremity has full motion, normal stability, no tenderness. Bilateral lower extremities have normal neurovascular status. DIAGNOSTIC STUDIES/INTERPRETATION: Plain film radiographs reviewed. She has a left total hip arthroplasty in good position and alignment. No evidence of prosthetic implant loosening or migration. IMPRESSION: 1.) Stable status post left total hip arthroplasty, doing well. 2.) Degenerative lumbar disease. PLAN: I am pleased with the outcome of intervention. She has made an excellent recovery. We discussed the benefits of performing a variety of exercises at home or with a therapist. She agrees with this and will continue this in a slow, steady manner. To help her with this, I will give her a script for physical therapy for continual conditioning and strengthening. She would also like a referral toa back doctor for her current back pain. I will make a referral to Dr. Restrepo for consult. I expect continued improvement in strength and mobility moving forward. I recommend followup at one year postop for repeat clinical and radiographic examination or sooner if any new symptoms develop. She will call with any questions or concerns in the meantime. APRIL HERNANDEZ I have reviewed the findings of my clinical staff below and agree with their assessment. Ortho Nurse Established Patient Intake Room#: 2---4 month post-op check of Left BOONE A/L. She has been doing good with this and has no painin her hip. She started to have left knee pain about 3 weeks ago but Now the pain is gone. She justwanted to have this noted. She had a left TKA done in 2016 by . She does have a history of back pain. Date: 03/28/2020 11:39 AM Patient: Radha Chaney MR#: [id number] : 1940 Age: 79 y.o. Referring Physician: Self, Self Insurance: Payor: MEDICARE / Plan: MEDICARE A AND B / Product Type: *No Product type* / Chief Complaint Patient presents with Left Hip - Post Op Visit Left Knee - Pain Visit Vitals Temp 96.8 F (36 C) (Temporal) Ht 1.651 m (5' 5 ) Wt 90.3 kg (199 lb) BMI 33.12 kg/m Pain Presence of Pain: denies pain/discomfort Pain Location: hip, left, knee, left Pain Location: hip, left, knee, left Recent Labs Lab Results Component Value Date CRP <8.9 09/07/2018 Lab Results Component Value Date SEDRATE 9 09/07/2018 Lab Results Component Value Date WBC 6.6 12/01/2019 HGB 12.3 12/01/2019 HCT 36.5 12/01/2019 PLATELET 266 12/01/2019 MCV 83.3 12/01/2019 History Past Medical History: Diagnosis Date Arthritis hips, back, left thumb Essential hypertension, benign Good exercise tolerance greater than 4 mets Yeast infection underneath both breasts; currently on lamisil and hydrocortisone; pt will follow up with Dr Stevenson let him know it's not going away Past Surgical History: Procedure Laterality Date ARTHROPLASTY HIP TOTAL Left 11/28/2019 Laterality: Left; Surgeon: Tonio Horan MD; Location: [facility] ARTHROPLASTY KNEE Right 10/04/2018 Laterality: Right; Surgeon: Tonio Horan MD; Location: [facility] ARTHROPLASTY KNEE TOTAL Right 09/07/2016 ARTHROPLASTY KNEE TOTAL Left 2016 KNEE ARTHROSCOPY Left 2015 FOOT SURGERY Left HYSTERECTOMY total RECONST EYELID FULL THICKNESS FLAP LOWER LID TOTAL 1ST STAGE ROTATOR CUFF REPAIR Bilateral done separately 2006 & 2013 Family History: Her family history includes Diabetes in her mother; Heart Disease - Other in her mother; Myocardial Infarction in her brother and father. Social History: Her reports that she has never smoked. She has never used smokeless tobacco. She reports that she does not drink alcohol or use drugs. Outpatient Medications Prior to Visit Medication Sig Dispense Refill aspirin EC [address] Take 81 mg by mouth daily. CALCIUM CITRATE PO Take 600 mg by mouth every 12 hours. Coenzyme Q10 (COQ10) 100 MG Cap Take 100 mg by mouth. gabapentin 100 MG Cap capsule Take 100 mg by mouth 3 times daily. LOSARTAN POTASSIUM PO Take 50 mg by mouth daily. magnesium oxide 400 (241.3 Mg) MG Tab tablet Take 250 mg by mouth daily. Multiple Vitamins-Minerals (CENTRUM SILVER PO) Take by mouth. Vitamin D3 1000 units Tab tablet Take 5,000 Units by mouth daily. acetaminophen 325 MG tablet Take 2 tablets by mouth every 4 hours as needed for Mild Pain. (Patientnot taking: Reported on 03/28/2020) 50 tablet 1 aspirin EC [address] Take 1 table twice a day for 30days. This medication is for blood clot prevention. 60 tablet 0 celecoxib 200 MG Cap capsule Take 1 capsule by mouth 2 times daily. 84 capsule 0 docusate 100 MG Cap capsule Take 1 capsule by mouth 2 times daily. (Patient not taking: Reported on03/28/2020) 60 capsule 0 omeprazole [address] capsule Take 1 capsule by mouth daily. (Patient not taking: Reported on 03/28/2020) 30 capsule 0 spironolactone 25 MG tablet Take 1 tablet by mouth 2 times daily. traMADol 50 MG Tab tablet 1-2 tabs po q 6 hr PRN pain 40 tablet 0 TURMERIC PO Take 1 capsule by mouth daily. No facility-administered medications prior to visit. Allergies: She has No Known Allergies. * Elaine Nguyễn LPN - 03/28/2020 11:10 AM EDT Ortho Nurse Established Patient Intake Room#: 2---4 month post-op check of Left BOONE A/L. She has been doing good with this and has no painin her hip. She started to have left knee pain about 3 weeks ago but Now the pain is gone. She justwanted to have this noted. She had a left TKA done in 2016 by . She does have a history of back pain. Date: 03/28/2020 11:39 AM Patient: Radha Chaney MR#: [id number] : 1940 Age: 79 y.o. Referring Physician: Self, Self Insurance: Payor: MEDICARE / Plan: MEDICARE A AND B / Product Type: *No Product type* / Chief Complaint Patient presents with Left Hip - Post Op Visit Left Knee - Pain Visit Vitals Temp 96.8 F (36 C) (Temporal) Ht 1.651 m (5' 5 ) Wt 90.3 kg (199 lb) BMI 33.12 kg/m Pain Presence of Pain: denies pain/discomfort Pain Location: hip, left, knee, left Pain Location: hip, left, knee, left Recent Labs Lab Results Component Value Date CRP <8.9 09/07/2018 Lab Results Component Value Date SEDRATE 9 09/07/2018 Lab Results Component Value Date WBC 6.6 12/01/2019 HGB 12.3 12/01/2019 HCT 36.5 12/01/2019 PLATELET 266 12/01/2019 MCV 83.3 12/01/2019 History Past Medical History: Diagnosis Date Arthritis hips, back, left thumb Essential hypertension, benign Good exercise tolerance greater than 4 mets Yeast infection underneath both breasts; currently on lamisil and hydrocortisone; pt will follow up with Dr Stevenson let him know it's not going away Past Surgical History: Procedure Laterality Date ARTHROPLASTY HIP TOTAL Left 11/28/2019 Laterality: Left; Surgeon: Tonio Horan MD; Location: [facility] ARTHROPLASTY KNEE Right 10/04/2018 Laterality: Right; Surgeon: Tonio Horan MD; Location: [facility] ARTHROPLASTY KNEE TOTAL Right 09/07/2016 ARTHROPLASTY KNEE TOTAL Left 2016 KNEE ARTHROSCOPY Left 2014 FOOT SURGERY Left HYSTERECTOMY total RECONST EYELID FULL THICKNESS FLAP LOWER LID TOTAL 1ST STAGE ROTATOR CUFF REPAIR Bilateral done separately 2006 & 2013 Family History: Her family history includes Diabetes in her mother; Heart Disease - Other in her mother; Myocardial Infarction in her brother and father. Social History: Her reports that she has never smoked. She has never used smokeless tobacco. She reports that she does not drink alcohol or use drugs. Outpatient Medications Prior to Visit Medication Sig Dispense Refill aspirin EC [address] Take 81 mg by mouth daily. CALCIUM CITRATE PO Take 600 mg by mouth every 12 hours. Coenzyme Q10 (COQ10) 100 MG Cap Take 100 mg by mouth. gabapentin 100 MG Cap capsule Take 100 mg by mouth 3 times daily. LOSARTAN POTASSIUM PO Take 50 mg by mouth daily. magnesium oxide 400 (241.3 Mg) MG Tab tablet Take 250 mg by mouth daily. Multiple Vitamins-Minerals (CENTRUM SILVER PO) Take by mouth. Vitamin D3 1000 units Tab tablet Take 5,000 Units by mouth daily. acetaminophen 325 MG tablet Take 2 tablets by mouth every 4 hours as needed for Mild Pain. (Patientnot taking: Reported on 03/28/2020) 50 tablet 1 aspirin EC [address] Take 1 table twice a day for 30days. This medication is for blood clot prevention. 60 tablet 0 celecoxib 200 MG Cap capsule Take 1 capsule by mouth 2 times daily. 84 capsule 0 docusate 100 MG Cap capsule Take 1 capsule by mouth 2 times daily. (Patient not taking: Reported on03/28/2020) 60 capsule 0 omeprazole [address] capsule Take 1 capsule by mouth daily. (Patient not taking: Reported on 03/28/2020) 30 capsule 0 spironolactone 25 MG tablet Take 1 tablet by mouth 2 times daily. traMADol 50 MG Tab tablet 1-2 tabs po q 6 hr PRN pain 40 tablet 0 TURMERIC PO Take 1 capsule by mouth daily. No facility-administered medications prior to visit. Allergies: She has No Known Allergies. documented in this encounter Assessments Diagnosis Preop testing - Primary Preoperative examination, unspecified Osteoarthritis of right knee , unspecified osteoarthritis type Hemarthrosis of right knee Hemarthrosis, lower leg Other specified abnormal fin dings of blood chemistry Diagnosis History of revision of total replacement of right knee joint- Primary Diagnosis History of total knee arthroplasty, right- Primary Diagnosis Left hip pain Pain in joint, pelvic region and thigh Diagnosis History of total knee arthroplasty, right- Primary Left hip pain Pain in joint, pelvic region and thigh Diagnosis Primary osteoarthritis of left hip- Primary Primary localized osteoarthrosis, pelvic region and thigh Preop testing Preoperative examination, unspecified Acute postoperative pain of left hip GERD (gastroesophageal reflux disease) Esophageal reflux Benign hypertension Essential hypertension, benign Diagnosis Hx of total hip arthroplasty, left Diagnosis Hx of total hip arthroplasty, left Diagnosis Lumbar facet joint pain Other symptoms referable to back DDD (degenerative disc disease), lumbosacral Degeneration of lumbar or lumbosacral intervertebral disc Osteoarthritis of facet joint of lumbar spine Diagnosis Acute pain of left knee History of total hip arthroplasty, left DDD (degenerative disc disease), lumbar Degeneration of lumbar or lumbosacral intervertebral disc Advance Directives No Advanced Directives Records FoundDocuments on File Type Date Recorded 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 Advance Directives/Living Will 10/04/2018 8:25 AM POA Advance Directives/Living Will 10/04/2018 8:26 AM Living Will Latest Code Status on File Code Status Date Activated Date Inactivated Comments Full Code 10/04/2018 3:17 PM Documents on File Type Date Recorded 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 Advance Directives/Living Will 10/04/2018 8:25 AM POA Advance Directives/Living Will 10/04/2018 8:26 AM Living Will Latest Code Status on File Code Status Date Activated Date Inactivated Comments Full Code 10/04/2018 3:17 PM Latest Code Status on File Code Status Date Activated Date Inactivated Comments Full Code 11/28/2019 1:36 PM Full Code 10/04/2018 3:17 PM 11/28/2019 1:36 PM Latest Code Status on File Code Status Date Activated Date Inactivated Comments Full Code 11/28/2019 1:36 PM Full Code 10/04/2018 3:17 PM 11/28/2019 1:36 PM Documents on File Type Date Recorded 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 * Discharge Instr - Notify* Donny Corrigan RN - 12/01/2019 10:37 AM EST Contact Office ([phone]) if: > Any falls or injuries > Redness, drainage or swelling at the incision site that is out of the ordinary from post-operative findings (minor redness, swelling and warmth around the entire knee are common post-operatively) > Patient non-compliance with assistive devices during gait > Fever > 101 degrees. For low grade fevers use Incentive Spirometry @ 10 puffs per hour and tylenol as directed. * Discharge Instr - Wound Care* Donny Corrigan RN - 12/01/2019 10:39 AM EST You have been given an educational handout on your SHIVANI dressing that is covering your incision. You will remove this dressing 12/06. Gently peel back the dressing while holding the skin taught. Do not rip or quickly pull off dressing. Once the dressing is removed you will discard the dressing, tubing and batter pack in the trash. Once your SHIVANI dressing is removed you will placean ABD over your incision for comfort. Your incision is closed with Dermabond. You may shower with this. Do not saturate or submerge extremity in water (i.e. Bathtub, hot tub, etc.) until cleared by the provider. Do not wash/scrub directly over/on your incision. Pat your incision dry do not rub your incision with a towel. Do not place any lotions, ointments, creams or powder on your incision or operative leg. When applying your new ABD pad after showering as a reminder do not place any tape over you ABD pad. Your underwear are to hold your pad in place. * Additional Instructions* Donny Corrigan RN - 12/01/2019 You have been given printed educational handouts on all new medications. Please refer to your greendischarge folder for handouts. You have been given seven ABD pads, one ice gel compression wrap, six ice gel packs, two pairs of YOEL hose and all personal belongings. If at any time you have questions please refer to your green discharge folder with all at home care instructions. If at any time you feel you have an emergency please dial 911 [address] you to your closest ER. Yoel Hose: > Help reduce the risk of blood clots and decrease swelling > To be worn bilaterally to the lower extremities for 30 days post-op > Patients can take their yoel hose off for 1 hour for every 8 hours that they wear them Medications: > Patients will be sent home with prescriptions, including medication for pain to be taken as directed. Stay ahead and do not allow your pain to get out of control. > If prescribed Aspirin, take twice a day for 30 days. Do not skip a dose, this is your medication for the prevention of blood clots. > If you have not had a bowel movement by your 3rd post-operative day you will need to use a gentle over the counter laxative such as Milk of magnesia, Fiberlax, Miralax, etc. Bowels need to move within 3 days or take action. Gel Ice Packs > Change every 4 hours or as needed for swelling and pain for at least the first 2 weeks Ambulation > Weight bearing status : toe touch > Above weight bearing status as tolerated with a walker then progress to a cane if stable, unless noted otherwise by the physician or therapist. For Hip Replacements: > No formal physical therapy, walking is the patients best therapy, unless otherwise noted. > General Hip Precautions Post op (unless otherwise noted from the doctor): * Do not cross legs at knee or ankles * Do not bend past 90 degrees * Do not twist * May roll to side with pillow between legs > Hip Precautions: Do Not allow your hip to flex more than 90 degrees Do Not move your leg past the middle of your body Do Not allow your leg to roll outward (external rotation) Do Not take long strides when walking Do Not use surgical leg to lift buttocks in bed Do Not lie in a completely flat bed Do Not lie on your stomach documented in this encounter Summary Purpose Family History No Family History Records FoundNo Family History Records FoundNo Family History Records FoundNo Family History Records FoundNo Family History Records Found Additional Source Comments Reason for Visit (unrecogniz ed section and content) Reason Comments Preoperative Assessment 10/04/18 Status Reason Specialty Diagnoses / Procedures Referred By Contact Referred To Contact New Request Diagnoses History of revision of total replacement of right knee joint Procedures XR KNEE RIGHT 3 VIEWS Tonio Horan MD [address] [place] [id number] Reason Comments Follow-up Reason Comments Post Op Visit Status Reason Specialty Diagnoses / Procedures Referred By Contact Referred To Contact New Request Diagnoses History of total knee arthroplasty, right Procedures XR BONE LENGTH STUDY Tonio Horan MD [address] [place] [id number] Reason Comments Pain Post Op Visit Status Reason Specialty Diagnoses / Procedures Re ferred By Contact Referred To Contact Diagnoses Primary osteoarthritis of left hip [M16.12] Tonio Horan MD [address] [place] [id number] Status Reason Specialty Diagnoses / Procedures Referred By Contact Referred To Contact New Request Diagnoses Hx of total hip arthroplasty, left Procedures XR HIP WITH PELVIS LEFT Suhas Greene APRN-PUMPER GAGER APPRENTICE [address] [place] [address] Reason Comments Post Op Visit Reason Comments Follow-up Post Op Visit Status Reason Specialty Diagnoses / Procedures Referred By Contact Referred To Contact New Request Diagnoses History of total hip arthroplasty, left Procedures XR HIP WITH PELVIS LEFT Suhas Greene, AIR CONDITIONING SUPERVISOR-PUMPER GAGER APPRENTICE [address] [place], [place] [id number] Reason Comments Post Op Visit Pain Status Reason Specialty Diagnoses / Procedures Referred By Contact Referred To Contact Pending Review Diagnoses History of total knee arthroplasty, right Procedures XR KNEE RIGHT 3 VIEWS Tonio Horan MD [address] [place], [place] [id number] Reason Comments Cervical dystonia Cervical pain Reason Comments Pain INFORMATION SOURCE (unrecogn ized section and content) DATE CREATED AUTHOR 06/21/2020 [facility] DATE CREATED AUTHOR AUTHOR'S ORGANIZ ATION 11/17/2021 [facility] DATE CREATED AUTHOR AUTHOR'S ORGANIZ ATION 01/28/2022 [facility] Specialist DATE CREATED AUTHOR AUTHOR'S ORGANIZ ATION 01/27/2023 [facility] DATE CREATED AUTHOR AUTHOR'S ORGANIZ ATION 07/29/2024 [facility] d[facility] Specialists EPIC Care Teams (unrecognized sec tion and content) Harpooner Relationship Specialty Start Date End Date Star Mishra MD [address] [place] [address] (Fax) PCP - ACO Reach 04/01/23 Star Mishra MD [address] [place] [address] PCP - General Family Medicine 05/20/23 Harpooner Relationship Specialty Start Date End Date Star Mishra MD [address] [facility] [place] [address] (Fax) PCP - ACO Reach 04/01/23 Star Mishra MD [address] [place] [address] PCP - General Family Medicine 05/20/23 Harpooner Relationship Specialty Start Date End Date Star Mishra MD [address] [facility] [place] [address] (Fax) PCP - ACO Reach 04/01/23 Star Mishra MD [address] [place] [address] PCP - General Family Medicine 05/20/23 Harpooner Relationship Specialty Start Date End Date Star Mishra MD [address] [facility] [place] [address] (Fax) PCP - ACO Reach 04/01/23 Star Mishra MD [address] [place] [address] PCP - General Family Medicine 05/20/23 Harpooner Relationship Specialty Start Date End Date Star Mishra MD [address] [facility] [place] [address] (Fax) PCP - ACO Reach 04/01/23 Star Mishra MD [address] [place] [address] PCP - General Family Medicine 05/20/23 FOR RECORDS PERTAINING TO PATIENTS WHO ARE OR HAVE BEEN ENROLLED IN A CHEMICAL DEPENDENCY/SUBSTANCEABUSE PROGRAM, SOME INFORMATION MAY BE OMITTED. This clinical summary was aggregated from multiple sources. Caution should be exercised in using it in the provision of clinical care. This summary normalizes information from multiple sources, and as a consequence, information in this document may materially change the coding, format and clinical context of patient data. In addition, data may be omitted in some cases. CLINICAL DECISIONS SHOULD BE BASED ON THE PRIMARY CLINICAL RECORDS. [facility] [employer] [facility]. provides no warranty or guarantee of the accuracy or completeness of information in this document.
== END 2024-10-02 15:21 | disposition home or self-care (01) ==
LOC: US 15:22
PROVIDERS: PCP Family Medicine; Visit Provider Family Medicine
DX: M79.604 Pain in right leg (principal); I87.2 Venous insufficiency (chronic) (peripheral); I83.893 Varicose veins of bilateral lower extremities with other complications; I73.9 Peripheral vascular disease, unspecified; M79.661 Pain in right lower leg; M79.89 Other specified soft tissue disorders
CPT/HCPCS: 93971